=== PATIENT | female | born 1935 | race Caucasian/White ===

== ENCOUNTER → 2017-10-10 09:15 | Outpatient (CLI) | payer MEDICARE, OTHER, SELFPAY ==
[2017-10-10 10:59] LABS: Basophils % 0.2 % (0.1-2.0); Eosinophils # 0.1 K/mm3 (0.0-0.4); Eosinophils % 1.6 % (0.1-12.0); Hematocrit 44.4 % (37.0-47.0); Hemoglobin 14.2 g/dL (12.2-16.2); Lymphocytes # 2.2 K/mm3 (0.7-4.5); Mean Corpuscular HGB Conc 32.1 g/dL (31.8-35.4); Mean Corpuscular Hemoglobin 30.2 pg (27.0-31.2); Mean Platelet Volume 7.7 fl (7.4-10.4); Monocytes # 0.4 K/mm3 (0.1-1.0); Monocytes % 6.5 % (1.7-9.3); Neutrophils # 3.9 K/mm3 (1.8-7.8); Neutrophils % 58.7 % (37.0-80.0); Platelet Count 304 K/mm3 (142-424); Red Blood Count 4.72 M/mm3 (4.20-5.40); Red Cell Distribution Width 14.2 % (11.5-17.5); White Blood Count 6.6 K/mm3 (4.8-10.8)
[2017-10-10 14:02] LABS: Alanine Aminotransferase 25 U/L (12-78); Albumin Level 4.1 gm/dL (3.4-5.0); Albumin/Globulin Ratio 1.4 (1.1-1.8); Alkaline Phosphatase 86 U/L (46-116); Aspartate Amino Transferase 15 U/L (15-37); Bilirubin,Total 0.5 mg/dL (0.2-1.0); Blood Urea Nitrogen 16 mg/dL (7-18); Calcium 9.4 mg/dL (8.5-10.1); Carbon Dioxide 27 mmol/L (21.0-32.0); Chloride 103 mmol/L (98-107); Chol/HDL Ratio 2.1 (1-3.5); Cholesterol 192 mg/dL (140-200); Creatinine,Serum 0.86 mg/dL (0.55-1.02); Estimated Glomerular Filt Rate 63 ml/min (>60); GFR (African American) 77 ML/MIN (>60); Glucose 79 mg/dL (74-106); HDL Cholesterol 90 mg/dL (29-89); LDL Cholesterol 84 mg/dL (0-130); Sodium 141 mmol/L (136-145); Thyroid Stimulating Hormone 0.96 uIU/ml (0.358-3.740); Total Protein,Serum 7.1 gm/dL (6.4-8.2); Triglycerides 92 mg/dL (30-200); VLDL Cholesterol 18 mg/dL (0-40)
== END ==
PROVIDERS: PCP Internal Medicine Adolescent Medicine; Visit Provider Internal Medicine Adolescent Medicine
DX: I10 Essential (primary) hypertension (principal); E78.5 Hyperlipidemia, unspecified; E03.9 Hypothyroidism, unspecified; M15.9 Polyosteoarthritis, unspecified
CPT/HCPCS: 36415; 80053; 80061; 84443; 85025

== ENCOUNTER → 2018-04-05 10:28 | Outpatient (POV) | payer MEDICARE, OTHER, SELFPAY ==
[2018-04-05 10:45] VITALS: BP 164/88; PULSE 76; RESP 18; O2SAT 98
--- NOTE | 2018-04-05 13:02 | HMH.PMCON ---
Assessment and Plan (1) Back pain Current visit: Yes Status: Chronic Qualifiers: Back pain location: low back pain Chronicity: chronic Back pain laterality: midline Sciatica presence: with sciatica Category: Medical Code(s): M54.9 - Dorsalgia, unspecified - Assessment and plan all Dx Assessment and Plan for all problems:: We will schedule physical therapy along with an order for new lumbar MRI. When the patient returns we will review the MRI. I believe she may be a mild candidate. This note was dictated using voice recognition software and may contain errors or omissions HPI - Data of Consult Consult date: 04/05/18 Requesting Physician: Alycia Remy APRN Primary Care Provider: Himanshu Escobar MD Family Provider: Referral Provider, - Consult Narrative Reason for consult: Back pain History of present illness: Ms. Marroquin is a 82 year old female presents today for consultation in regard to her back and leg pain. Patient states that most of her back pain happens when she is walking or moving. Patient states that during shopping she finds herself bent over a cart. Patient states that resting heat and ice and elevation decrease her pain. Patient does have some burning down her left leg at times. Patient has had steroid injections in the past however she has had reactions to them every time. Patient was told by Dr. Bills that she would not be having anymore. Patient tried and failed chiropractic therapy along with massage therapy. Patient rates her pain a 7 out of 10. Patient would like to start with physical therapy. I do also believe we should get some new imaging her back. CC: Alycia Remy APRN [facility] History I have reviewed the patient's past medical history: Yes Medical History: Reports:: Hyperlipidemia, Hypertension Denies:: Diabetes Mellitus Type 1 Other Medical History: Reports: Thyroid Disease Other Surgeries: Yes: Appendectomy, Hysterectomy-Total, Thyroidectomy Amputation: No Fractures: No - *Social History Smoking Status: Never smoker Alcohol Intake: never Occupational Status: retired Housing: house - Psychiatric History Expresses thoughts of harming self/others: None Suicide Plan Description: No Plan *Family Hx:: Unable to obtain Review of Systems - Review of Systems ROS General: no recent weight change, no fever, no sleep disturbances Respiratory: no cough, no shortness of air, no recurring pulmonary infections Cardiovascular/Peripheral Vascular: No chest pain, No palpitations, no edema, no shortness of breath. Gastrointestinal: no incontinence, normal bowel movements reported Genitourinary: no incontinence Musculoskeletal: Back pain, leg pain Psychiatric: normal mood/ affect Neurological: [denies weakness in extremities], [denies balance issues] Meds Home Medications Medication Instructions Recorded Confirmed Type Losartan Potassium 50 mg PO DAILY 04/05/18 04/05/18 History Omeprazole [Omeprazole 20mg 20 mg PO DAILY 04/05/18 04/05/18 History Capsule] Simvastatin 80 mg PO DAILY 04/05/18 04/05/18 History methylPREDNISolone 4 mg PO DAILY 04/05/18 04/05/18 History [Methylprednisolone] Allergies Allergy/AdvReac Type Severity Reaction Status Date / Time cyclobenzaprine Allergy Verified 04/05/18 10:56 etodolac Allergy Verified 04/05/18 10:56 metronidazole Allergy Verified 04/05/18 10:56 tramadol Allergy Verified 04/05/18 10:56 niacin AdvReac Verified 04/05/18 10:56 TYLENOL 3 Allergy Uncoded 04/05/18 10:56 Objective Vital signs: Pulse Resp BP Pulse Ox 76 18 164/88 98 04/05/18 10:45 04/05/18 10:45 04/05/18 10:45 04/05/18 10:45 Narrative: Physical Exam General: Alert and oriented x3, no acute distress, pleasant and cooperative, [on room air] Lungs: Resps E/U, Symmetrical chest expansion, Eyes: PERRL Musculoskeletal: Flexion and extension of lumbar spine somewhat gua
--- NOTE | 2018-04-05 13:05 | P.CONS_ITS ---
Assessment and Plan (1) Back pain Current visit: Yes Status: Chronic Qualifiers: Back pain location: low back pain Chronicity: chronic Back pain laterality: midline Sciatica presence: with sciatica Category: Medical Code(s): M54.9 - Dorsalgia, unspecified - Assessment and plan all Dx Assessment and Plan for all problems:: We will schedule physical therapy along with an order for new lumbar MRI. When the patient returns we will review the MRI. I believe she may be a mild candidate. This note was dictated using voice recognition software and may contain errors or omissions HPI - Data of Consult Consult date: 04/05/18 Requesting Physician: Alycia Remy APRN Primary Care Provider: Himanshu Escobar MD Family Provider: Referral Provider, - Consult Narrative Reason for consult: Back pain History of present illness: Ms. Marroquin is a 82 year old female presents today for consultation in regard to her back and leg pain. Patient states that most of her back pain happens when she is walking or moving. Patient states that during shopping she finds herself bent over a cart. Patient states that resting heat and ice and elevation decrease her pain. Patient does have some burning down her left leg at times. Patient has had steroid injections in the past however she has had reactions to them every time. Patient was told by Dr. Bills that she would not be having anymore. Patient tried and failed chiropractic therapy along with massage therapy. Patient rates her pain a 7 out of 10. Patient would like to start with physical therapy. I do also believe we should get some new imaging her back. CC: Alycia Remy APRN [facility] History I have reviewed the patient's past medical history: Yes Medical History: Reports:: Hyperlipidemia, Hypertension Denies:: Diabetes Mellitus Type 1 Other Medical History: Reports: Thyroid Disease Other Surgeries: Yes: Appendectomy, Hysterectomy-Total, Thyroidectomy Amputation: No Fractures: No - *Social History Smoking Status: Never smoker Alcohol Intake: never Occupational Status: retired Housing: house - Psychiatric History Expresses thoughts of harming self/others: None Suicide Plan Description: No Plan *Family Hx:: Unable to obtain Review of Systems - Review of Systems ROS General: no recent weight change, no fever, no sleep disturbances Respiratory: no cough, no shortness of air, no recurring pulmonary infections Cardiovascular/Peripheral Vascular: No chest pain, No palpitations, no edema, no shortness of breath. Gastrointestinal: no incontinence, normal bowel movements reported Genitourinary: no incontinence Musculoskeletal: Back pain, leg pain Psychiatric: normal mood/ affect Neurological: [denies weakness in extremities], [denies balance issues] Meds Home Medications Medication Instructions Recorded Confirmed Type Losartan Potassium 50 mg PO DAILY 04/05/18 04/05/18 History Omeprazole [Omeprazole 20mg 20 mg PO DAILY 04/05/18 04/05/18 History Capsule] Simvastatin 80 mg PO DAILY 04/05/18 04/05/18 History methylPREDNISolone 4 mg PO DAILY 04/05/18 04/05/18 History [Methylprednisolone] Allergies Allergy/AdvReac Type Severity Reaction Status Date / Time cyclobenzaprine Allergy Verified 04/05/18 10:56 etodolac Allergy Verified 04/05/18 10:5
== END ==
PROVIDERS: PCP Internal Medicine Adolescent Medicine; Visit Provider Clinical Nurse Specialist Family Health
DX: M54.30 Sciatica, unspecified side (principal)
CPT/HCPCS: 99202

== ENCOUNTER → 2018-04-09 11:19 | Outpatient (CLI) | payer MEDICARE, OTHER, SELFPAY ==
--- NOTE | 2018-04-09 11:22 | MR_ITS ---
MR lumbar spine wo con, MR 3-d myelogram/MRCP HISTORY: PT states low back pain and left leg pain ITS.REASON: BACK PAIN ORDERING PHYSICIAN: Alycia Remy PATIENT AGE: 82 years Comparison: MRI 09/09/13 TECHNIQUE: Standard multiplanar multiecho sequences are performed without contrast. 3-D MIP and myelographic images are also rendered and reviewed FINDINGS: There is multilevel degenerative disc disease/lumbar spondylosis with lumbar scoliosis convex right. Spinal cord ends at the L1-L2 level. T12-L1: Unremarkable. L1-L2: Degenerative disc disease with mild left-sided bulging discs/disc osteophyte complex with moderate left-sided foraminal narrowing. Lateral osteophyte formation noted at this level. L2-L3: Mild degenerative disc disease. L3-L4: Degenerative disc disease with mild anterolisthesis of L3 of 3 mm with a broad-based bulging disc. There is 7 mm right lateral translation of L3 on L4. Facet ligamentum flavum hypertrophy noted with moderate bilateral lateral recess narrowing and mild bilateral foraminal narrowing. There is borderline canal stenosis at this level. L4-5: Degenerative disc disease with bulging disc with bilateral lateral recess and foraminal narrowing. L5-S1: Mild degenerative disc disease with mild bilateral foraminal narrowing. IMPRESSION: Multilevel lumbar spondylosis with degenerative disc disease, scoliosis, and bulging disc along with facet and ligamentum flavum hypertrophy with lateral recess and foraminal narrowing. There is borderline canal stenosis at L3-L4. No extruded herniated disc. Degenerative changes are somewhat worse than when compared to 09/09/2013. Please see above for detailed description at each level
== END ==
PROVIDERS: PCP Internal Medicine Adolescent Medicine; Visit Provider Clinical Nurse Specialist Family Health
DX: M54.5 Low back pain (principal)
CPT/HCPCS: 72148; 76376

== ENCOUNTER → 2018-04-19 12:41 | Outpatient (POV) | payer MEDICARE, OTHER, SELFPAY ==
--- NOTE | 2018-04-19 13:14 | HMH.PAINSOAP ---
[facility] Pain Management SOAP Note Subjective:: Patient is a pleasant 82-year-old white female who presents today to for follow-up after her recent MRI. Patient is continuing with her physical therapy and states that it has been helping. Patient's MRI does show degenerative disc disease along with some bulging disc. Patient also has a little bit of spinal stenosis. Patient rates her pain today at a 5 out of 10. Patient will be going to physical therapy today. Patient also discussed dry needling with me. Most of her pain is in her low back. ROS General: no recent weight change, no fever, no sleep disturbances Respiratory: no cough, no shortness of air, no recurring pulmonary infections Cardiovascular/Peripheral Vascular: No chest pain, No palpitations, no edema, no shortness of breath. Gastrointestinal: no incontinence, normal bowel movements reported Genitourinary: no incontinence Musculoskeletal: Back pain Psychiatric: normal mood/ affect Neurological: [denies weakness in extremities], [denies balance issues] Objective:: Physical Exam General: Alert and oriented x3, no acute distress, pleasant and cooperative, on room air Lungs: Resps E/U, Symmetrical chest expansion, Eyes: PERRL Musculoskeletal: Flexion and extension of lumbar spine somewhat guarded secondary to pain, deep tendon reflexes normal, strength in upper and lower extremities [5/5], antalgic gait noted Neurological: speech clear, advertising account executive equal, no gross sensory deficits Assessment:: Degenerative disc disease of the lumbar spine with lumbar radiculopathy Plan:: We will allow the patient to finish with her physical therapy and follow-up with her after this. Patient and I discussed that if she would like to pursue dry needling I would be happy to write a prescription for this. Patient and I also discussed that there may be some small procedures that we can do to help with her in functionality long-term. Patient has been instructed to call the office if she has any issues prior to her next appointment. This note was dictated using voice recognition software and may contain errors or omissions
[2018-04-19 15:30] VITALS: BP 138/77; PULSE 82; RESP 18; O2SAT 98; BMI 27.4
== END ==
PROVIDERS: PCP Internal Medicine Adolescent Medicine; Visit Provider Clinical Nurse Specialist Family Health
DX: M51.16 Intervertebral disc disorders with radiculopathy, lumbar region (principal)
CPT/HCPCS: 99213

== ENCOUNTER → 2018-05-06 08:18 | Outpatient (CLI) | payer MEDICARE, OTHER, SELFPAY ==
[2018-05-06 09:25] LABS: Basophils % 0.4 % (0.1-2.0); Eosinophils # 0.1 K/mm3 (0.0-0.4); Eosinophils % 1.9 % (0.1-12.0); Hematocrit 42.2 % (37.0-47.0); Hemoglobin 13.3 g/dL (12.2-16.2); Lymphocytes # 1.5 K/mm3 (0.7-4.5); Lymphocytes % 31.3 K/mm3 (10-50); Mean Corpuscular HGB Conc 31.6 g/dL (31.8-35.4); Mean Corpuscular Hemoglobin 29.2 pg (27.0-31.2); Mean Corpuscular Volume 92.4 fl (81-99); Mean Platelet Volume 7.4 fl (7.4-10.4); Monocytes # 0.4 K/mm3 (0.1-1.0); Monocytes % 7.9 % (1.7-9.3); Neutrophils # 2.8 K/mm3 (1.8-7.8); Neutrophils % 58.5 % (37.0-80.0); Platelet Count 312 K/mm3 (142-424); Red Blood Count 4.56 M/mm3 (4.20-5.40); Red Cell Distribution Width 13.8 % (11.5-17.5); White Blood Count 4.8 K/mm3 (4.8-10.8)
[2018-05-06 09:38] LABS: Alanine Aminotransferase 20 U/L (12-78); Albumin Level 3.7 gm/dL (3.4-5.0); Albumin/Globulin Ratio 1.2 (1.1-1.8); Alkaline Phosphatase 98 U/L (46-116); Anion Gap 12.1 mEq/L (5-15); Aspartate Amino Transferase 17 U/L (15-37); Bilirubin,Total 0.5 mg/dL (0.2-1.0); Blood Urea Nitrogen 15 mg/dL (7-18); Calcium 9.5 mg/dL (8.5-10.1); Carbon Dioxide 29 mmol/L (21.0-32.0); Chloride 103 mmol/L (98-107); Chol/HDL Ratio 2.3 (1-3.5); Cholesterol 177 mg/dL (140-200); Estimated Glomerular Filt Rate 69 ml/min (>60); Free Thyroxine Index 5.3 ug/dL (5.93-13.13); GFR (African American) 83 ML/MIN (>60); Globulin 3.2 gm/dl (1.3-3.2); Glucose 89 mg/dL (74-106); HDL Cholesterol 76 mg/dL (29-89); LDL Cholesterol 79 mg/dL (0-130); Potassium 5.1 mmoL/L (3.5-5.1); Sodium 139 mmol/L (136-145); T4 (Thyroxine) 14.7 ug/dl (4.7-13.3); Thyroid Stimulating Hormone 0.06 uIU/ml (0.358-3.740); Total Protein,Serum 6.9 gm/dL (6.4-8.2); Triglycerides 108 mg/dL (30-200); Triiodothryronine (T3) Uptake 36 % (31-39); VLDL Cholesterol 22 mg/dL (0-40)
== END ==
PROVIDERS: PCP Internal Medicine Adolescent Medicine; Visit Provider Internal Medicine Adolescent Medicine
DX: E03.9 Hypothyroidism, unspecified (principal); E78.5 Hyperlipidemia, unspecified; M15.0 Primary generalized (osteo)arthritis
CPT/HCPCS: 36415; 80053; 80061; 84436; 84443; 84479; 85025

== ENCOUNTER 2018-05-06 09:30 | Outpatient (RCR) | payer MEDICARE, OTHER, SELFPAY ==
--- NOTE | 2018-04-09 14:10 | HMH.PTOPEV ---
PT Outpatient Evaluation Rehab PT Outpatient Evaluation Start: 04/09/18 13:40 Freq: Status: Active Protocol: Document 04/09/18 13:44 PHORTRINO (Rec: 04/09/18 14:09 PHORNE [id number]) Electronically Signed By Obi Santillan, PT 04/09/18 13:44 Outpatient Therapy Subjective History Subjective History Pt is 82 yowf who presents c/o LBP x ~ 1 yr with insidious onset of symptoms and left LE pain to the mid-thigh distally . She reports no pain with sitting, but increased pain with prolonged standing and walking. She also reports she has been treated for left knee OA and left hip trochanteric bursitis over the past yr as well. She has received steroid injection in her knee and hip and had bad reactions with all of them. Chief Complaint Pain Symptom Type Sharp Burning Symptoms Relieved By Rest/Positioning Heat Ice Symptoms Aggravated By Standing Walking Prior Functional Limitations None Current Functional Limitations Standing Walking Symptom Description Intermittent Activity Dependent Level of pain today (0-10) 0 Pain scale - at its best (0-10) 8 Lumbopelvic Eval Palapation tenderness bilateral lumbar spinal tenderness Yes paraspinal tenderness Yes buttock tenderness Yes Lumbar/Sacral Palpation Findings Tenderness Muscle Guarding Lumbar/Sacral Palpation Overall Comment steve SI and quad lumborum Accessory Movement L-spine Vertebrae Accessory Movements Central P/A Lee that Elicit Symptoms L2 bilateral L3 bilateral L4 bilateral L5 bilateral S1 bilateral Range of Motion Lumbar Spine Active Flexion Range of 0-65 Motion (degrees) Lumbar Spine Active Extension Range of 0-15 Motion (degrees) Left Lumbar Spine Lateral Flexion Active 0-15 Range of Motion (degrees) Right Lumbar Spine Lateral Flexion 0-15 Active Range of Motion (degrees) Manual Muscle Test Bilateral Knee Extension Strength Grade 5 Normal Knee Flexion Strength Grade 5 Nor
== END 2018-05-06 09:31 | disposition home or self-care (01) ==
LOC: PT 09:30
PROVIDERS: PCP Internal Medicine Adolescent Medicine; Visit Provider Clinical Nurse Specialist Family Health
DX: M54.5 Low back pain (principal)
CPT/HCPCS: 97010; 97014; 97110; 97140; 97163; G0283

== ENCOUNTER → 2018-05-17 15:09 | Outpatient (POV) | payer MEDICARE, OTHER, SELFPAY ==
[2018-05-17 15:46] VITALS: BP 157/87; PULSE 87; RESP 18; O2SAT 98; BMI 27.4
--- NOTE | 2018-05-17 16:09 | HMH.PAINSOAP ---
[facility] Pain Management SOAP Note Subjective:: Patient is a pleasant 83-year-old white female who presents today for follow-up. Patient has completed her physical therapy. Patient states that her pain is still an 8 out of 10. Patient states most of the pain is when she standing and walking. Patient states she has to lean over countertops and shopping cart for relief. Patient and I discussed spinal stenosis and a mild procedure. Patient rates her pain an 8 out of 10 today. Patient is interested in this procedure. Patient is not on any anticoagulation therapy. Patient is continuing her home stretching exercises. ROS General: no recent weight change, no fever, no sleep disturbances Respiratory: no cough, no shortness of air, no recurring pulmonary infections Cardiovascular/Peripheral Vascular: No chest pain, No palpitations, no edema, no shortness of breath. Gastrointestinal: no incontinence, normal bowel movements reported Genitourinary: no incontinence Musculoskeletal: Back pain Psychiatric: normal mood/ affect Neurological: [denies weakness in extremities], [denies balance issues] Objective:: Physical Exam General: Alert and oriented x3, no acute distress, pleasant and cooperative, [on room air] Lungs: Resps E/U, Symmetrical chest expansion, Eyes: PERRL Musculoskeletal: Flexion and extension of lumbar spine somewhat guarded secondary to pain, deep tendon reflexes normal, strength in upper and lower extremities [5/5], [abnormal gait noted] Neurological: speech clear, wet mix operator equal, no gross sensory deficits Assessment:: 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 If she is we will schedule her for a mild procedure. This note was dictated using voice recognition software and may contain errors or omissions
== END ==
PROVIDERS: PCP Internal Medicine Adolescent Medicine; Visit Provider Clinical Nurse Specialist Family Health
DX: M51.36 Other intervertebral disc degeneration, lumbar region (principal); M48.062 Spinal stenosis, lumbar region with neurogenic claudication
CPT/HCPCS: 99213

== ENCOUNTER → 2018-06-11 11:17 | Outpatient (POV) | payer MEDICARE, OTHER, SELFPAY ==
[2018-06-11 11:25] VITALS: BP 137/61; PULSE 83; RESP 18; O2SAT 98; BMI 27.4
--- NOTE | 2018-06-11 11:48 | HMH.PAINSOAP ---
[facility] Pain Management SOAP Note Subjective:: This patient is a pleasant 83-year-old white female who we are treating for degenerative disc disease of lumbar spine with spinal stenosis and neurogenic claudication. She has increasing pain with walking. Bending forward does make it better. MRI does show significant spinal stenosis at L3-L4 with ligamentum flavum hypertrophy noted at that level. She has had a series of epidurals which is not giving her much benefit. I believe she would benefit from minimally invasive lumbar decompression at this level L3-L4 bilaterally. I have explained the risk and benefits and answered all questions. Objective:: Alert and oriented x3 no acute distress. Tenderness over the lumbar spine. Motor strength of the lower extremities is 5/5. There is no gross sensory deficit. Assessment:: Degenerative disc disease of lumbar spine with significant lumbar spinal stenosis neurogenic claudication at L3-L4 Plan:: We will plan on minimally invasive lumbar decompression at L3-L4 bilaterally. Depending on epidural dye spread we may do any other indicated levels if needed.
== END ==
PROVIDERS: PCP Internal Medicine Adolescent Medicine; Visit Provider Anesthesiology
DX: M51.36 Other intervertebral disc degeneration, lumbar region (principal); M48.062 Spinal stenosis, lumbar region with neurogenic claudication
CPT/HCPCS: 99212

== ENCOUNTER → 2018-07-05 15:06 | Outpatient (POV) | payer MEDICARE, OTHER, SELFPAY ==
[2018-07-05 15:32] VITALS: BP 156/87; PULSE 91; RESP 18; O2SAT 99; BMI 27.4
--- NOTE | 2018-07-05 15:36 | HMH.PAINSOAP ---
[facility] Pain Management SOAP Note Subjective:: Is a pleasant 83-year-old white female who presents today after mild procedure. Patient is still having some preprocedural pain. She rates her pain a 7 out of 10. She is a little frustrated at this time. Patient and I had a long discussion in regards to options for her treatment in the future. Patient and I discussed about epidural injections along with potential intrathecal therapies. ROS General: no recent weight change, no fever, no sleep disturbances Respiratory: no cough, no shortness of air, no recurring pulmonary infections Cardiovascular/Peripheral Vascular: No chest pain, No palpitations, no edema, no shortness of breath. Gastrointestinal: no incontinence, normal bowel movements reported Genitourinary: no incontinence Musculoskeletal: Back pain, leg pain Psychiatric: normal mood/ affect Neurological: [denies weakness in extremities], [denies balance issues] Objective:: Physical Exam General: Alert and oriented x3, no acute distress, pleasant and cooperative, [on room air] Lungs: Resps E/U, Symmetrical chest expansion, Eyes: PERRL Musculoskeletal: Flexion and extension of lumbar spine somewhat guarded secondary to pain, deep tendon reflexes normal, strength in upper and lower extremities [5/5], [abnormal gait noted] Neurological: speech clear, quality assurance qa lab technician equal, no gross sensory deficits Assessment:: Degenerative disc disease lumbar spine with lumbar spinal stenosis and neurogenic claudication at L3-L4 Plan:: We will schedule an L3-L4 epidural steroid injection for the patient in several weeks. We will also give her a Medrol Dosepak today to see if this helps her with her pain level. Patient and I also did discuss intrathecal therapy I do believe she would be a good candidate for this. This note was dictated using voice recognition software and may contain errors or omissions
== END ==
PROVIDERS: PCP Internal Medicine Adolescent Medicine; Visit Provider Clinical Nurse Specialist Family Health
DX: M51.36 Other intervertebral disc degeneration, lumbar region (principal); M48.062 Spinal stenosis, lumbar region with neurogenic claudication
CPT/HCPCS: 99213

== ENCOUNTER → 2018-07-07 11:11 | Outpatient (CLI) | payer MEDICARE, OTHER, SELFPAY ==
[2018-07-07 11:44] LABS: Basophils % 0.1 % (0.1-2.0); Eosinophils % 0.2 % (0.1-12.0); Hematocrit 42.3 % (37.0-47.0); Hemoglobin 13.3 g/dL (12.2-16.2); Lymphocytes # 1.4 K/mm3 (0.7-4.5); Mean Corpuscular HGB Conc 31.4 g/dL (31.8-35.4); Mean Corpuscular Volume 92.3 fl (81-99); Monocytes # 0.4 K/mm3 (0.1-1.0); Monocytes % 4.5 % (1.7-9.3); Neutrophils # 7.7 K/mm3 (1.8-7.8); Neutrophils % 80.2 % (37.0-80.0); Platelet Count 373 K/mm3 (142-424); Red Blood Count 4.58 M/mm3 (4.20-5.40); Red Cell Distribution Width 14.7 % (11.5-17.5); White Blood Count 9.5 K/mm3 (4.8-10.8)
[2018-07-07 14:20] LABS: Alanine Aminotransferase 25 U/L (12-78); Albumin Level 4.2 gm/dL (3.4-5.0); Albumin/Globulin Ratio 1.3 (1.1-1.8); Alkaline Phosphatase 88 U/L (46-116); Anion Gap 14.5 mEq/L (5-15); Aspartate Amino Transferase 14 U/L (15-37); Bilirubin,Total 0.3 mg/dL (0.2-1.0); Blood Urea Nitrogen 17 mg/dL (7-18); Calcium 9.5 mg/dL (8.5-10.1); Carbon Dioxide 27 mmol/L (21.0-32.0); Chloride 101 mmol/L (98-107); Creatinine,Serum 0.81 mg/dL (0.55-1.02); Estimated Glomerular Filt Rate 68 ml/min (>60); GFR (African American) 82 ML/MIN (>60); Globulin 3.3 gm/dl (1.3-3.2); Glucose 93 mg/dL (74-106); Potassium 4.5 mmoL/L (3.5-5.1); Sodium 138 mmol/L (136-145); Total Protein,Serum 7.5 gm/dL (6.4-8.2)
== END ==
PROVIDERS: Visit Provider Nurse Practitioner Family
DX: R19.5 Other fecal abnormalities (principal); R10.13 Epigastric pain
CPT/HCPCS: 36415; 80053; 85025

== ENCOUNTER → 2018-07-08 07:24 | Outpatient (CLI) | payer MEDICARE, OTHER, SELFPAY ==
[2018-07-08 08:21] LABS: Occult Blood,Stool Negative (Negative)
== END ==
PROVIDERS: Visit Provider Nurse Practitioner Family
DX: R19.5 Other fecal abnormalities (principal)
CPT/HCPCS: 82272; G0328

== ENCOUNTER → 2018-07-09 14:51 | Outpatient (CLI) | payer MEDICARE, OTHER, SELFPAY ==
[2018-07-09 16:18] LABS: Occult Blood,Stool Negative (Negative)
== END ==
PROVIDERS: Visit Provider Nurse Practitioner Family
DX: R19.5 Other fecal abnormalities (principal)
CPT/HCPCS: 82272; G0328

== ENCOUNTER → 2018-07-10 10:37 | Outpatient (CLI) | payer MEDICARE, OTHER, SELFPAY ==
[2018-07-10 14:23] LABS: Occult Blood,Stool Negative (Negative)
== END ==
PROVIDERS: Visit Provider Nurse Practitioner Family
DX: R19.5 Other fecal abnormalities (principal)
CPT/HCPCS: 82272; G0328

== ENCOUNTER → 2018-08-17 11:11 | Outpatient (POV) | payer MEDICARE, OTHER, SELFPAY ==
[2018-08-17 11:29] VITALS: BP 149/74; PULSE 78; RESP 18; O2SAT 98; BMI 27.4
--- NOTE | 2018-08-17 11:35 | HMH.PAINSOAP ---
[facility] Pain Management SOAP Note Subjective:: Patient is an 83-year-old white female who presents today for follow-up after left bursa injection. Patient states her hip is doing better however she still having quite a bit of pain post mild procedure. Patient states that the pain is constant she states it is no better than when she started. Patient was scheduled for an epidural but she states she did not receive that she received a bursa injection instead due to the current symptomology. Patient states that stretching helps her back. Patient does have a negative Fabere sign. Patient states that she still has to lean forward for relief of her pain. She rates her pain a 9 out of 10 when she is up standing moving walking. ROS General: no recent weight change, no fever, no sleep disturbances Respiratory: no cough, no shortness of air, no recurring pulmonary infections Cardiovascular/Peripheral Vascular: No chest pain, No palpitations, no edema, no shortness of breath. Gastrointestinal: no incontinence, normal bowel movements reported Genitourinary: no incontinence Musculoskeletal: Back pain Psychiatric: normal mood/ affect Neurological: [denies weakness in extremities], [denies balance issues] Objective:: Physical Exam General: Alert and oriented x3, no acute distress, pleasant and cooperative, [on room air] Lungs: Resps E/U, Symmetrical chest expansion, Eyes: PERRL Musculoskeletal: Flexion and extension of lumbar spine somewhat guarded secondary to pain, deep tendon reflexes normal, strength in upper and lower extremities [5/5], [abnormal gait noted] Neurological: speech clear, shared services and outsourcing manager equal, no gross sensory deficits Assessment:: Degenerative disc disease lumbar spine with lumbar radiculopathy along with spinal stenosis and neurogenic claudication Plan:: We will schedule her for an L4-L5 lumbar epidural steroid injection. Patient and I briefly discussed a vertical flex. I do believe injection should be done prior to this. But she may benefit from it in the future. Not on any anticoagulation therapy. Dr. Kidd has reviewed this note and agrees with this plan of care. This note was dictated using voice recognition software and may contain errors or omissions
== END ==
PROVIDERS: PCP Internal Medicine Adolescent Medicine; Visit Provider Clinical Nurse Specialist Family Health
DX: M48.062 Spinal stenosis, lumbar region with neurogenic claudication (principal); M51.16 Intervertebral disc disorders with radiculopathy, lumbar region
CPT/HCPCS: 99213

== ENCOUNTER → 2018-08-31 10:58 | Outpatient (POV) | payer MEDICARE, OTHER, SELFPAY ==
[2018-08-31 11:08] VITALS: BP 151/74; PULSE 71; RESP 18; O2SAT 98; BMI 27.4
--- NOTE | 2018-08-31 11:17 | HMH.PAINSOAP ---
[facility] Pain Management SOAP Note Subjective:: Patient is a pleasant 83-year-old white female who presents today for follow-up after lumbar epidural steroid injection. Patient states she is doing better she rates her pain a 2 out of 10. Patient states she has good and bad days. Patient would like to repeat the injection to see if she can get more relief. Most of her pain is in her back and down her legs at times. Patient is status post a mild procedure she states that this point she can now walk from her chair to the restroom without issue. ROS General: no recent weight change, no fever, no sleep disturbances Respiratory: no cough, no shortness of air, no recurring pulmonary infections Cardiovascular/Peripheral Vascular: No chest pain, No palpitations, no edema, no shortness of breath. Gastrointestinal: no incontinence, normal bowel movements reported Genitourinary: no incontinence Musculoskeletal: Back pain leg pain Psychiatric: normal mood/ affect Neurological: [denies weakness in extremities], [denies balance issues] Objective:: Physical Exam General: Alert and oriented x3, no acute distress, pleasant and cooperative, [on room air] Lungs: Resps E/U, Symmetrical chest expansion, Eyes: PERRL Musculoskeletal: Flexion and extension of lumbar spine somewhat guarded secondary to pain, deep tendon reflexes normal, strength in upper and lower extremities [5/5], [abnormal gait noted] Neurological: speech clear, boom stick man equal, no gross sensory deficits Assessment:: Degenerative disc disease lumbar spine with lumbar radiculopathy and spinal stenosis with neurogenic claudication Plan:: Given the efficacy of the last injection we will schedule a repeat L4-L5 lumbar epidural steroid injection. Patient is continuing on anti-inflammatories. She is continuing home stretching and is not on any anticoagulation therapy. Dr. Kidd has reviewed this note and agrees with this plan of care. This note was dictated using voice recognition software and may contain errors or omissions
== END ==
PROVIDERS: PCP Internal Medicine Adolescent Medicine; Visit Provider Clinical Nurse Specialist Family Health
DX: M51.36 Other intervertebral disc degeneration, lumbar region (principal); M48.062 Spinal stenosis, lumbar region with neurogenic claudication
CPT/HCPCS: 99213

== ENCOUNTER → 2018-10-04 14:03 | Outpatient (POV) | payer MEDICARE, OTHER, SELFPAY ==
[2018-10-04 14:21] VITALS: BP 144/74; PULSE 85; RESP 18; O2SAT 98; BMI 27.4
--- NOTE | 2018-10-05 08:53 | HMH.PAINSOAP ---
[facility] Pain Management SOAP Note Subjective:: Patient is a pleasant 83-year-old white female who presents today for follow-up. Patient is a little disheartened. Patient states that she thought she would be doing much better she rates her pain at 25% less than originally. She has had a epidural injection and a mild procedure. Patient has been quite against any intrathecal or neuro modulation therapies however I do believe she would benefit from them. We did briefly discuss this. Patient would like to try another round of injections prior. Patient states most of her pain is in her low back. Patient has not had any facet joint injections. Patient is not on any blood thinners. Patient is continuing a home stretching program and is on anti-inflammatories. ROS General: no recent weight change, no fever, no sleep disturbances Respiratory: no cough, no shortness of air, no recurring pulmonary infections Cardiovascular/Peripheral Vascular: No chest pain, No palpitations, no edema, no shortness of breath. Gastrointestinal: no incontinence, normal bowel movements reported Genitourinary: no incontinence Musculoskeletal: Back pain Psychiatric: normal mood/ affect Neurological: [denies weakness in extremities], [denies balance issues] Objective:: Physical Exam General: Alert and oriented x3, no acute distress, pleasant and cooperative, [on room air] Lungs: Resps E/U, Symmetrical chest expansion, [CTA bilateral] Eyes: PERRL Musculoskeletal: Flexion and extension of lumbar spine somewhat guarded secondary to pain, deep tendon reflexes normal, strength in upper and lower extremities [5/5], [abnormal gait noted] Neurological: speech clear, hog confinement system manager equal, no gross sensory deficits Assessment:: DDD lumbar spine, facet arthropathy, spinal stenosis Plan:: we will schedule a medial branch block at L4 L5 and L5 S1 bilaterally to see if this is beneficial. If it is not I believe the patient would benefit from an intrathecal pain pump.I will follow up with the patient after her injection. Dr. Kidd has reviewed this note and agrees with this plan of care. This note was dictated using voice recognition software and may contain errors or omissions
--- NOTE | 2018-10-05 08:56 | P.CONS_ITS ---
[facility] Pain Management SOAP Note Subjective:: Patient is a pleasant 83-year-old white female who presents today for follow-up. Patient is a little disheartened. Patient states that she thought she would be doing much better she rates her pain at 25% less than originally. She has had a epidural injection and a mild procedure. Patient has been quite against any intrathecal or neuro modulation therapies however I do believe she would benefit from them. We did briefly discuss this. Patient would like to try another round of injections prior. Patient states most of her pain is in her low back. Patient has not had any facet joint injections. Patient is not on any blood thinners. Patient is continuing a home stretching program and is on anti- inflammatories. ROS General: no recent weight change, no fever, no sleep disturbances Respiratory: no cough, no shortness of air, no recurring pulmonary infections Cardiovascular/Peripheral Vascular: No chest pain, No palpitations, no edema, no shortness of breath. Gastrointestinal: no incontinence, normal bowel movements reported Genitourinary: no incontinence Musculoskeletal: Back pain Psychiatric: normal mood/ affect Neurological: [denies weakness in extremities], [denies balance issues] Objective:: Physical Exam General: Alert and oriented x3, no acute distress, pleasant and cooperative, [on room air] Lungs: Resps E/U, Symmetrical chest expansion, [CTA bilateral] Eyes: PERRL Musculoskeletal: Flexion and extension of lumbar spine somewhat guarded secondary to pain, deep tendon reflexes normal, strength in upper and lower extremities [5/5], [abnormal gait noted] Neurological: speech clear, target worker equal, no gross sensory deficits Assessment:: DDD lumbar spine, facet arthropathy, spinal stenosis Plan:: we will schedule a medial branch block at L4 L5 and L5 S1 bilaterally to see if this is beneficial. If it is not I believe the patient would benefit from an intrathecal pain pump.I will follow up with the patient after her injection. Dr. Kidd has reviewed this note and agrees with this plan of care. This note was dictated using voice recognition software and may contain errors or omissions
== END ==
PROVIDERS: PCP Internal Medicine Adolescent Medicine; Visit Provider Clinical Nurse Specialist Family Health
DX: M51.36 Other intervertebral disc degeneration, lumbar region (principal); M54.06 Panniculitis affecting regions of neck and back, lumbar region; M48.00 Spinal stenosis, site unspecified
CPT/HCPCS: 99213

== ENCOUNTER → 2018-11-08 08:55 | Outpatient (POV) | payer MEDICARE, OTHER, SELFPAY ==
[2018-11-08 09:15] VITALS: BP 156/81; PULSE 76; RESP 18; O2SAT 98; BMI 32.9
--- NOTE | 2018-11-08 09:33 | HMH.PAINSOAP ---
[facility] Pain Management SOAP Note Subjective:: Patient is a pleasant 83-year-old white female who presents today for follow-up after lumbar medial branch block. Patient had 80% relief for over 2 weeks after her injections. Patient states she is much more functional. She would like to proceed with an RFA. She is currently not on any anticoagulation therapy. She is continuing her home stretching program. She is on anti-inflammatories. She rates her pain today at 3 out of 10 ROS General: no recent weight change, no fever, no sleep disturbances Respiratory: no cough, no shortness of air, no recurring pulmonary infections Cardiovascular/Peripheral Vascular: No chest pain, No palpitations, no edema, no shortness of breath. Gastrointestinal: no incontinence, normal bowel movements reported Genitourinary: no incontinence Musculoskeletal: Back pain Psychiatric: normal mood/ affect Neurological: [denies weakness in extremities], [denies balance issues] Objective:: Physical Exam General: Alert and oriented x3, no acute distress, pleasant and cooperative, [on room air] Lungs: Resps E/U, Symmetrical chest expansion, Eyes: PERRL Musculoskeletal: Flexion and extension of lumbar spine somewhat guarded secondary to pain, deep tendon reflexes normal, strength in upper and lower extremities [5/5], [abnormal gait noted] patient has positive Kemps test bilateral lumbar spine Neurological: speech clear, beef grinder equal, no gross sensory deficits Assessment:: 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 Dr. Kidd has reviewed this note and agrees with this plan of care. This note was dictated using voice recognition software and may contain errors or omissions
--- NOTE | 2018-11-08 09:36 | P.CONS_ITS ---
[facility] Pain Management SOAP Note Subjective:: Patient is a pleasant 83-year-old white female who presents today for follow-up after lumbar medial branch block. Patient had 80% relief for over 2 weeks after her injections. Patient states she is much more functional. She would like to proceed with an RFA. She is currently not on any anticoagulation therapy. She is continuing her home stretching program. She is on anti-inflammatories. She rates her pain today at 3 out of 10 ROS General: no recent weight change, no fever, no sleep disturbances Respiratory: no cough, no shortness of air, no recurring pulmonary infections Cardiovascular/Peripheral Vascular: No chest pain, No palpitations, no edema, no shortness of breath. Gastrointestinal: no incontinence, normal bowel movements reported Genitourinary: no incontinence Musculoskeletal: Back pain Psychiatric: normal mood/ affect Neurological: [denies weakness in extremities], [denies balance issues] Objective:: Physical Exam General: Alert and oriented x3, no acute distress, pleasant and cooperative, [on room air] Lungs: Resps E/U, Symmetrical chest expansion, Eyes: PERRL Musculoskeletal: Flexion and extension of lumbar spine somewhat guarded secondary to pain, deep tendon reflexes normal, strength in upper and lower extremities [5/5], [abnormal gait noted] patient has positive Kemps test bilateral lumbar spine Neurological: speech clear, clinical coder equal, no gross sensory deficits Assessment:: 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 Dr. Kidd has reviewed this note and agrees with this plan of care. This note was dictated using voice recognition software and may contain errors or omissions
== END ==
PROVIDERS: PCP Internal Medicine Adolescent Medicine; Visit Provider Clinical Nurse Specialist Family Health
DX: M51.36 Other intervertebral disc degeneration, lumbar region (principal); M47.896 Other spondylosis, lumbar region; M54.06 Panniculitis affecting regions of neck and back, lumbar region
CPT/HCPCS: 99212

== ENCOUNTER → 2018-11-15 07:27 | Outpatient (CLI) | payer MEDICARE, OTHER, SELFPAY ==
[2018-11-15 07:59] LABS: Basophils % 0.4 % (0.1-2.0); Eosinophils # 0.2 K/mm3 (0.0-0.4); Eosinophils % 3.3 % (0.1-12.0); Hematocrit 38.9 % (37.0-47.0); Hemoglobin 12.8 g/dL (12.2-16.2); Mean Corpuscular Hemoglobin 30.9 pg (27.0-31.2); Mean Corpuscular Volume 93.5 fl (81-99); Mean Platelet Volume 6.9 fl (7.4-10.4); Monocytes # 0.4 K/mm3 (0.1-1.0); Monocytes % 6.4 % (1.7-9.3); Neutrophils # 3.7 K/mm3 (1.8-7.8); Neutrophils % 58.9 % (37.0-80.0); Platelet Count 387 K/mm3 (142-424); Red Blood Count 4.16 M/mm3 (4.20-5.40); Red Cell Distribution Width 14.5 % (11.5-17.5); White Blood Count 6.3 K/mm3 (4.8-10.8)
[2018-11-15 11:43] LABS: Alanine Aminotransferase 29 U/L (12-78); Albumin Level 4.1 gm/dL (3.4-5.0); Albumin/Globulin Ratio 1.2 (1.1-1.8); Alkaline Phosphatase 86 U/L (46-116); Anion Gap 16.7 mEq/L (5-15); Aspartate Amino Transferase 18 U/L (15-37); Bilirubin,Total 0.3 mg/dL (0.2-1.0); Blood Urea Nitrogen 15 mg/dL (7-18); Calcium 9.5 mg/dL (8.5-10.1); Carbon Dioxide 25 mmol/L (21.0-32.0); Chloride 102 mmol/L (98-107); Chol/HDL Ratio 2.1 (1-3.5); Cholesterol 194 mg/dL (140-200); Creatinine,Serum 0.99 mg/dL (0.55-1.02); Estimated Glomerular Filt Rate 54 ml/min (>60); Free Thyroxine Index 4.5 ug/dL (5.93-13.13); GFR (African American) 65 ML/MIN (>60); Globulin 3.3 gm/dl (1.3-3.2); Glucose 81 mg/dL (74-106); HDL Cholesterol 92 mg/dL (29-89); LDL Cholesterol 87 mg/dL (0-130); Potassium 4.7 mmoL/L (3.5-5.1); Sodium 139 mmol/L (136-145); T4 (Thyroxine) 13.2 ug/dl (4.7-13.3); Thyroid Stimulating Hormone 0.82 uIU/ml (0.358-3.740); Total Protein,Serum 7.4 gm/dL (6.4-8.2); Triglycerides 75 mg/dL (30-200); Triiodothryronine (T3) Uptake 34 % (31-39); VLDL Cholesterol 15 mg/dL (0-40)
[2018-11-16 07:07] LABS: Vitamin D 25 Hydroxy 93.8 ng/mL (30.0-100.0)
== END ==
PROVIDERS: Visit Provider Internal Medicine Adolescent Medicine
DX: E78.5 Hyperlipidemia, unspecified (principal); E03.9 Hypothyroidism, unspecified; M15.9 Polyosteoarthritis, unspecified
CPT/HCPCS: 36415; 80053; 80061; 82652; 84436; 84443; 84479; 85025

== ENCOUNTER → 2019-01-03 10:02 | Outpatient (POV) | payer MEDICARE, OTHER, SELFPAY ==
[2019-01-03 10:46] VITALS: BP 184/82; PULSE 78; RESP 18; O2SAT 99; BMI 27.4
--- NOTE | 2019-01-03 11:20 | P.CONS_ITS ---
[facility] Pain Management SOAP Note Subjective:: Patient is a 83-year-old white female who we have been treating for low back pain and leg pain. Patient has had multiple injections along with lumbar RFA. She rates her pain an 8 out of 10 she states is terrible. Patient had a mild in the past. Patient states that the injections are so painful they need to knock me out . I discussed with her the risks of sedation. Patient would like to talk about intrathecal pain pump I do believe it would be beneficial for her given her failure of conservative measures. Patient has tried and failed physical therapy. She is continuing a home stretching program and trying to stay as functional as possible. She is not on any anticoagulation therapy. M ost of her pain is in her low back and bilateral legs. ROS General: no recent weight change, no fever, no sleep disturbances Respiratory: no cough, no shortness of air, no recurring pulmonary infections Cardiovascular/Peripheral Vascular: No chest pain, No palpitations, no edema, no shortness of breath. Gastrointestinal: no incontinence, normal bowel movements reported Genitourinary: no incontinence Musculoskeletal: Back pain, leg pain Psychiatric: normal mood/ affect Neurological: [denies weakness in extremities], [denies balance issues] Objective:: Physical Exam General: Alert and oriented x3, no acute distress, pleasant and cooperative, [on room air] Lungs: Resps E/U, Symmetrical chest expansion, Eyes: PERRL Musculoskeletal: Flexion and extension of lumbar spine somewhat guarded secondary to pain, deep tendon reflexes normal, strength in upper and lower extremities [5/5], slightly antalgic gait noted Neurological: speech clear, district supervisor equal, no gross sensory deficits Assessment:: Degenerative disc disease lumbar spine with lumbar facet arthropathy lumbar spondylosis, spinal stenosis with neurogenic claudication Plan:: We will schedule a psychological evaluation for the patient to determine if she is an appropriate candidate for an intrathecal pain pump. We will then move forward with a shot trial. I have discussed this in detail with the patient. She understands risks and benefits. She would like to proceed. Dr. Kidd has reviewed this note and agrees with this plan of care. This note was dictated using voice recognition software and may contain errors or omissions
== END ==
PROVIDERS: PCP Internal Medicine Adolescent Medicine; Visit Provider Clinical Nurse Specialist Family Health
DX: M48.062 Spinal stenosis, lumbar region with neurogenic claudication (principal)
CPT/HCPCS: 99212

== ENCOUNTER → 2019-01-25 08:46 | Outpatient (POV) | payer MEDICARE, OTHER, SELFPAY ==
[2019-01-25 09:05] VITALS: BP 175/91; PULSE 89; RESP 18; O2SAT 98; BMI 27.4
--- NOTE | 2019-01-25 13:03 | HMH.PAINSOAP ---
[facility] Pain Management SOAP Note Subjective:: Patient is a pleasant 83-year-old white female who presents today for follow-up. Patient is planning on having an intrathecal pain pump trial. Patient had many questions that I answered for her. Patient has had a mild procedure along with multiple epidurals, facet joint injections and a lumbar RFA. She rates the pain a 6 out of 10 and states it is constant. Patient has tried and failed physical therapy she is continuing a home stretching program and trying to stay as functional as possible. She is not on any anticoagulation therapy. She is going today for psychological evaluation. ROS General: no recent weight change, no fever, no sleep disturbances Respiratory: no cough, no shortness of air, no recurring pulmonary infections Cardiovascular/Peripheral Vascular: No chest pain, No palpitations, no edema, no shortness of breath. Gastrointestinal: no incontinence, normal bowel movements reported Genitourinary: no incontinence Musculoskeletal: Back pain, leg pain Psychiatric: normal mood/ affect Neurological: [denies weakness in extremities], [denies balance issues] Objective:: Physical Exam General: Alert and oriented x3, no acute distress, pleasant and cooperative, [on room air] Lungs: Resps E/U, Symmetrical chest expansion, Eyes: PERRL Musculoskeletal: Flexion and extension of lumbar spine somewhat guarded secondary to pain, deep tendon reflexes normal, strength in upper and lower extremities [5/5], [abnormal gait noted] Neurological: speech clear, financial services specialist equal, no gross sensory deficits Assessment:: Degenerative disc disease lumbar spine with lumbar radiculopathy, spinal stenosis with neurogenic claudication Plan:: We will set up the patient for a intrathecal pain pump trial as soon as possible. She is currently not on any narcotic medications. She is not on any anticoagulation therapy. I will follow-up with her after her trial reassess her symptoms at that time.
--- NOTE | 2019-01-25 13:08 | P.CONS_ITS ---
[facility] Pain Management SOAP Note Subjective:: Patient is a pleasant 83-year-old white female who presents today for follow-up. Patient is planning on having an intrathecal pain pump trial. Patient had many questions that I answered for her. Patient has had a mild procedure along with multiple epidurals, facet joint injections and a lumbar RFA. She rates the pain a 6 out of 10 and states it is constant. Patient has tried and failed physical therapy she is continuing a home stretching program and trying to stay as functional as possible. She is not on any anticoagulation therapy. She is going today for psychological evaluation. ROS General: no recent weight change, no fever, no sleep disturbances Respiratory: no cough, no shortness of air, no recurring pulmonary infections Cardiovascular/Peripheral Vascular: No chest pain, No palpitations, no edema, no shortness of breath. Gastrointestinal: no incontinence, normal bowel movements reported Genitourinary: no incontinence Musculoskeletal: Back pain, leg pain Psychiatric: normal mood/ affect Neurological: [denies weakness in extremities], [denies balance issues] Objective:: Physical Exam General: Alert and oriented x3, no acute distress, pleasant and cooperative, [on room air] Lungs: Resps E/U, Symmetrical chest expansion, Eyes: PERRL Musculoskeletal: Flexion and extension of lumbar spine somewhat guarded secondary to pain, deep tendon reflexes normal, strength in upper and lower extremities [5/5], [abnormal gait noted] Neurological: speech clear, middle school librarian equal, no gross sensory deficits Assessment:: Degenerative disc disease lumbar spine with lumbar radiculopathy, spinal stenosis with neurogenic claudication Plan:: We will set up the patient for a intrathecal pain pump trial as soon as possible. She is currently not on any narcotic medications. She is not on any anticoagulation therapy. I will follow-up with her after her trial reassess her symptoms at that time.
== END ==
PROVIDERS: PCP Internal Medicine Adolescent Medicine; Visit Provider Clinical Nurse Specialist Family Health
DX: M51.16 Intervertebral disc disorders with radiculopathy, lumbar region (principal); M48.062 Spinal stenosis, lumbar region with neurogenic claudication
CPT/HCPCS: 99212

== ENCOUNTER → 2019-02-03 08:09 | Outpatient (CLI) | payer MEDICARE, OTHER, SELFPAY ==
[2019-02-03 09:01] LABS: Basophils % 0.3 % (0.1-2.0); Eosinophils # 0.2 K/mm3 (0.0-0.4); Eosinophils % 2.6 % (0.1-12.0); Hematocrit 42.9 % (37.0-47.0); Hemoglobin 12.9 g/dL (12.2-16.2); Lymphocytes % 32.2 % (10-50); Mean Corpuscular HGB Conc 30.1 g/dL (31.8-35.4); Mean Corpuscular Hemoglobin 30.1 pg (27.0-31.2); Mean Corpuscular Volume 99.8 fl (81-99); Mean Platelet Volume 7.6 fl (7.4-10.4); Monocytes # 0.3 K/mm3 (0.1-1.0); Monocytes % 5.6 % (1.7-9.3); Neutrophils # 3.7 K/mm3 (1.8-7.8); Neutrophils % 59.3 % (37.0-80.0); Platelet Count 354 K/mm3 (142-424); Red Cell Distribution Width 14.6 % (11.5-17.5); White Blood Count 6.2 K/mm3 (4.8-10.8)
[2019-02-03 10:11] LABS: Anion Gap 14.6 mEq/L (5-15); Blood Urea Nitrogen 15 mg/dL (7-18); Calcium 9.9 mg/dL (8.5-10.1); Carbon Dioxide 24 mmol/L (21.0-32.0); Chloride 103 mmol/L (98-107); Creatinine,Serum 0.92 mg/dL (0.55-1.02); Estimated Glomerular Filt Rate 58 ml/min (>60); GFR (African American) 71 ML/MIN (>60); Glucose 87 mg/dL (74-106); Potassium 4.6 mmoL/L (3.5-5.1); Sodium 137 mmol/L (136-145)
== END ==
PROVIDERS: Visit Provider Clinical Nurse Specialist Family Health
DX: Z01.818 Encounter for other preprocedural examination (principal)
CPT/HCPCS: 36415; 80048; 85025

== ENCOUNTER → 2019-02-14 09:49 | Outpatient (POV) | payer MEDICARE, OTHER, SELFPAY ==
--- NOTE | 2019-02-14 10:18 | P.CONS_ITS ---
[facility] Pain Management SOAP Note Subjective:: Patient is a pleasant 83-year-old white female who presents today for follow-up. Patient had an intrathecal pain pump implanted on the of this month. She had some itching and some annoyance with the Sima wound VAC. Patient wound VAC was removed and the patient incisions look good. No sign symptoms of infection she is continuing her antibiotics she does rate her pain a 7 out of 10 however on further discussion patient seems quite anxious today however she feels like the itching is being caused from her abdominal binder. She is currently on a morphine dose of 0.25 mg a day intrathecally. Review of Systems General: No recent weight changes, no fever, no sleep disturbances Respiratory: No cough, no shortness of air, no recurring pulmonary infections Cardiovascular/peripheral vascular: No chest pain, no palpitations, no edema, no shortness of breath Gastrointestinal: No new onset incontinence, normal bowel movements reported Genitourinary: No new onset incontinence Musculoskeletal: Back pain Psychiatric: Normal mood/affect Neurological: [Denies weakness in extremities], [denies balance issues] Objective:: Physical exam General: Alert and oriented x3, no acute distress, pleasant and cooperative, [on room air] Lungs: Respirations even and unlabored, symmetrical chest expansion Eyes: PERRL Musculoskeletal: Flexion and extension of lumbar spine somewhat guarded secondary to pain, deep tendon reflexes normal, strength in upper and lower extremities [5/5], [abnormal gait noted] Neurological: Speech clear, topper press operator automatic equal, no gross sensory deficit Assessment:: Degenerative disc disease lumbar spine with lumbar radiculopathy and spinal stenosis with neurogenic claudication Plan:: We will take the wound VAC off we will also cease the use of the abdominal binder I encouraged her to go by compression where to wear instead of the abdominal binder. I also discussed with her getting a shower. Patient is good to call us in the morning to discuss if she is doing any better. She does not want to make any changes to her intrathecal therapy at this time. Dr. Kidd has reviewed this note and agrees with this plan of care. This note was dictated using voice recognition software and make contain errors or omissions.
[2019-02-14 10:34] VITALS: BP 162/62; PULSE 87; RESP 18; O2SAT 98; BMI 15.9
== END ==
PROVIDERS: PCP Internal Medicine Adolescent Medicine; Visit Provider Clinical Nurse Specialist Family Health
DX: M51.16 Intervertebral disc disorders with radiculopathy, lumbar region (principal); M48.062 Spinal stenosis, lumbar region with neurogenic claudication
CPT/HCPCS: 99212

== ENCOUNTER → 2019-02-28 12:26 | Outpatient (POV) | payer MEDICARE, OTHER, SELFPAY ==
--- NOTE | 2019-02-28 13:06 | P.CONS_ITS ---
[facility] Pain Management SOAP Note Subjective:: Patient is a pleasant 83-year-old white female who presents today for follow-up. Patient rates her pain a 2 out of 10 she states she is much more active and able to do things that she was unable to before. Patient states that she is standing tolerance and walking longer she finds some weakness at times however we discussed building the muscles back up in regards to her previous pain complaints. Patient's only complaint today she still have some residual itching around where the abdominal binder was. Patient and I discussed utilizing Benadryl cream to help alleviate some of that itching. Patient was prescribed a round of steroids by her primary care physician which she stated caused her it henrry to get worse. However she completed the round of steroids. Overall the patient is doing well. ROS General: no recent weight change, no fever, no sleep disturbances Respiratory: no cough, no shortness of air, no recurring pulmonary infections Cardiovascular/Peripheral Vascular: No chest pain, No palpitations, no edema, no shortness of breath. Gastrointestinal: no incontinence, normal bowel movements reported Genitourinary: no incontinence Musculoskeletal: Back pain, leg pain Psychiatric: normal mood/ affect Neurological: [denies weakness in extremities], [denies balance issues] Objective:: Physical Exam General: Alert and oriented x3, no acute distress, pleasant and cooperative, [on room air] Lungs: Resps E/U, Symmetrical chest expansion, Eyes: PERRL Musculoskeletal: Flexion and extension of lumbar spine somewhat guarded secondary to pain, deep tendon reflexes normal, strength in upper and lower extremities [5/5], antalgic gait noted Neurological: speech clear, motor equipment lieutenant equal, no gross sensory deficits Assessment:: 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 Dr. Kidd has reviewed this note and agrees with this plan of care. This note was dictated using voice recognition software and may contain errors or omissions Pain Management Hx Components *Have you ever received a pneumonia vaccine?: Yes *Have you received a flu vaccine this season?: Yes - *Social History *Occupational Status:: other *Travel in the last 8 weeks: None
[2019-02-28 13:09] VITALS: BP 178/77; PULSE 65; RESP 18; O2SAT 98; BMI 27.4
== END ==
PROVIDERS: PCP Internal Medicine Adolescent Medicine; Visit Provider Clinical Nurse Specialist Family Health
DX: M51.16 Intervertebral disc disorders with radiculopathy, lumbar region (principal); M48.062 Spinal stenosis, lumbar region with neurogenic claudication
CPT/HCPCS: 99213

== ENCOUNTER → 2019-03-14 14:05 | Outpatient (POV) | payer MEDICARE, OTHER, SELFPAY ==
[2019-03-14 14:41] VITALS: BP 175/70; PULSE 72; RESP 18; O2SAT 98; BMI 26.6
--- NOTE | 2019-03-14 14:55 | HMH.PMPROC ---
- Procedure Date: 03/14/19 Time: 14:55 Anesthesiologist:: Alycia Remy APRN Complications:: None Pre-procedure Diagnosis:: Degenerative disc disease lumbar spine with lumbar radiculopathy and spinal stenosis and neurogenic claudication Post-procedure Diagnosis:: Same Indications for Procedure:: Patient is an 83-year-old white female who is pissed off . She states that she is worse than she was prior to her implant. Patient states that she has not been able to do anything she has not left her house or been to latter-day in 5 weeks. She rates her pain a 6 out of 10. She states that she cannot stand or walk any distance. Patient states she does not believe her pump is working. She states that her boluses do not help her in any way. Physical Exam General: Alert and oriented x3, no acute distress, pleasant and cooperative, [on room air] Lungs: Resps E/U, Symmetrical chest expansion, Eyes: PERRL Musculoskeletal: Flexion and extension of lumbar spine somewhat guarded secondary to pain, deep tendon reflexes normal, strength in upper and lower extremities [5/5], [abnormal gait noted] Neurological: speech clear, surface hydrologist equal, no gross sensory deficits Procedure Details:: P informed consent was obtained and the risk and benefits of the procedure were explained to the patient. The patient was taken to the procedure room where noninvasive monitoring was placed including noninvasive blood pressure cuff and pulse oximeter. Patient's pump was interrogated and reprogrammed. The pump was turned off. The patient tolerated the procedure well. Plan and Disposition:: We will see the patient back tomorrow see if she has had any difference in her pain. Patient and I discussed explant along with potential medication changes. We will reassess her tomorrow. She is been instructed to call the office if she has any issues prior to her next appointment. Dr. Kidd has reviewed this note and agrees with this plan of care. This note was dictated using voice recognition software and may contain errors or omissions
== END ==
PROVIDERS: PCP Internal Medicine Adolescent Medicine; Visit Provider Clinical Nurse Specialist Family Health
DX: M51.16 Intervertebral disc disorders with radiculopathy, lumbar region (principal); M48.062 Spinal stenosis, lumbar region with neurogenic claudication
CPT/HCPCS: 62368

== ENCOUNTER → 2019-03-15 11:21 | Outpatient (POV) | payer MEDICARE, OTHER, SELFPAY ==
[2019-03-15 12:11] VITALS: BP 157/77; PULSE 86; RESP 18; O2SAT 97; BMI 26.5
--- NOTE | 2019-03-15 12:31 | P.PCN_ITS ---
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 Patient states she did not notice much change in her pain however she does want her back on today. Patient had a long discussion in regards to the way we would handle her pain moving forward. Patient and I discussed utilizing Dilaudid prior to discussing explant. Patient rates her pain today a 6 out of 10. Physical Exam General: Alert and oriented x3, no acute distress, pleasant and cooperative, [on room air] Lungs: Resps E/U, Symmetrical chest expansion, Eyes: PERRL Musculoskeletal: Flexion and extension of lumbar spine somewhat guarded seconda ry to pain, deep tendon reflexes normal, strength in upper and lower extremities [5/5], [abnormal gait noted] Neurological: speech clear, venue coordinator equal, no gross sensory deficits Procedure Details:: Informed consent was obtained and the risk and benefits of the procedure were explained to the patient. The patient was taken to the procedure room where noninvasive monitoring was placed including noninvasive blood pressure cuff and pulse oximeter. Patient's pump was interrogated and reprogrammed. The infusion rate was turned back on at 0.25 mg/day. The patient tolerated the procedure well. Plan and Disposition:: We will order Dilaudid 1 mg/mL for her we will change her over to Dilaudid at her next visit. We will start her at 0.[address] Kidd has reviewed this note and agrees with this plan of care. This note was dictated using voice recognition software and may contain errors or omissions
== END ==
PROVIDERS: PCP Internal Medicine Adolescent Medicine; Visit Provider Clinical Nurse Specialist Family Health
DX: M51.16 Intervertebral disc disorders with radiculopathy, lumbar region (principal); M48.062 Spinal stenosis, lumbar region with neurogenic claudication
CPT/HCPCS: 62368; 62370

== ENCOUNTER → 2019-03-29 13:09 | Outpatient (POV) | payer MEDICARE, OTHER, SELFPAY ==
[2019-03-29 13:19] VITALS: BP 155/73; PULSE 85; RESP 18; O2SAT 98; BMI 26.6
--- NOTE | 2019-03-29 13:32 | HMH.PMPROC ---
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 Patient states that she has had some improvement she rates her pain a 3 out of 10 she states her itching has gotten better. She denies any side effects to this medication she would like a slight increase today she is currently at 0.075 mg of Dilaudid we will switch her to 0.1 mg of Dilaudid. Physical Exam General: Alert and oriented x3, no acute distress, pleasant and cooperative, [on room air] Lungs: Resps E/U, Symmetrical chest expansion, Eyes: PERRL Musculoskeletal: Flexion and extension of lumbar spine somewhat guarded secondary to pain, deep tendon reflexes normal, strength in upper and lower extremities [5/5], [abnormal gait noted] Neurological: speech clear, strategic communications manager equal, no gross sensory deficits Procedure Details:: Informed consent was obtained and the risk and benefits of the procedure were explained to the patient. The patient was taken to the procedure room where noninvasive monitoring was placed including noninvasive blood pressure cuff and pulse oximeter. Patient's pump was interrogated and reprogrammed. The infusion rate was switched to 0.1 mg of Dilaudid a day and her PTC was set up at 0.01 mg every 6 hours as needed. The patient tolerated the procedure well. Plan and Disposition:: I will see the patient back in 1 week reassess her symptoms at that time she is been instructed to call the office if she has any issues prior to her next appointment. Dr. Kidd has reviewed this note and agrees with this plan of care. This note was dictated using voice recognition software and may contain errors or omissions
== END ==
PROVIDERS: PCP Internal Medicine Adolescent Medicine; Visit Provider Clinical Nurse Specialist Family Health
DX: M48.062 Spinal stenosis, lumbar region with neurogenic claudication (principal); M51.16 Intervertebral disc disorders with radiculopathy, lumbar region
CPT/HCPCS: 62368

== ENCOUNTER → 2019-04-04 08:37 | Outpatient (POV) | payer MEDICARE, OTHER, SELFPAY ==
[2019-04-04 09:09] VITALS: BP 159/66; PULSE 75; RESP 18; O2SAT 98; BMI 26.5
--- NOTE | 2019-04-04 09:28 | HMH.PMPROC ---
- Procedure Date: 04/04/19 Time: 09:28 Anesthesiologist:: Alycia Remy APRN Complications:: None Pre-procedure Diagnosis:: Degenerative disc disease lumbar spine with lumbar radiculopathy along with spinal stenosis and neurogenic claudication Post-procedure Diagnosis:: Same Indications for Procedure:: Patient is a pleasant 83-year-old white female who presents today for follow-up and intrathecal pain pump adjustment. She is currently on a Dilaudid infusion of 0.1 mg/day. She denies side effects. She rates her pain a 3 out of 10 she states she is 25 to 30% better. Patient states that when she goes out for a walk or any strenuous activity like shopping her pain gets up to an 8 out of 10 however it resolved within 45 minutes to an hour afterwards. I discussed with her utilizing her PTC prior to this. Her other complaint is that the site over her pump is quite sore. I had ordered her compounding cream however she refused it when contacted by the pharmacy. She states she wants to have something that she can have picked up here in [place]. I discussed potentially diclofenac cream. She denies any side effects to her medication. [facility] #[id number] reviewed and appropriate. Physical Exam General: Alert and oriented x3, no acute distress, pleasant and cooperative, [on room air] Lungs: Resps E/U, Symmetrical chest expansion, Eyes: PERRL Musculoskeletal: Flexion and extension of lumbar spine somewhat guarded secondary to pain, deep tendon reflexes normal, strength in upper and lower extremities [5/5], [abnormal gait noted] Neurological: speech clear, ramp attendant equal, no gross sensory deficits Procedure Details:: Informed consent was obtained and the risk and benefits of the procedure were explained to the patient. The patient was taken to the procedure room where noninvasive monitoring was placed including noninvasive blood pressure cuff and pulse oximeter. Patient's pump was interrogated and reprogrammed. The infusion rate was increased to 0.13 mg of Dilaudid a day. The patient tolerated the procedure well. Plan and Disposition:: I discussed with the patient that we will only make adjustments every 2 weeks from here on out. Patient will be seen in 2 weeks reassess at that time she is been instructed to call the office if she has any issues prior to her next appointment. Patient can consider the diclofenac cream if it is beneficial for her we will order it. Dr. Kidd has reviewed this note and agrees with this plan of care. This note was dictated using voice recognition software and may contain errors or omissions
--- NOTE | 2019-04-04 09:31 | P.PCN_ITS ---
- Procedure Date: 04/04/19 Time: 09:28 Anesthesiologist:: Alycia Remy APRN Complications:: None Pre-procedure Diagnosis:: Degenerative disc disease lumbar spine with lumbar radiculopathy along with spinal stenosis and neurogenic claudication Post-procedure Diagnosis:: Same Indications for Procedure:: Patient is a pleasant 83-year-old white female who presents today for follow-up and intrathecal pain pump adjustment. She is currently on a Dilaudid infusion of 0.1 mg/day. She denies side effects. She rates her pain a 3 out of 10 she states she is 25 to 30% better. Patient states that when she goes out for a walk or any strenuous activity like shopping her pain gets up to an 8 out of 10 however it resolved within 45 minutes to an hour afterwards. I discussed with her utilizing her PTC prior to this. Her other complaint is that the site over her pump is quite sore. I had ordered her compounding cream however she refused it when contacted by the pharmacy. She states she wants to have something that she can have picked up here in [place]. I discussed potentially diclofenac cream. She denies any side effects to her medication. [facility] #[id number] reviewed and appropriate. Physical Exam General: Alert and oriented x3, no acute distress, pleasant and cooperative, [on room air] Lungs: Resps E/U, Symmetrical chest expansion, Eyes: PERRL Musculoskeletal: Flexion and extension of lumbar spine somewhat guarded secondary to pain, deep tendon reflexes normal, strength in upper and lower extremities [5/5], [abnormal gait noted] Neurological: speech clear, drywall carrier equal, no gross sensory deficits Procedure Details:: Informed consent was obtained and the risk and benefits of the procedure were explained to the patient. The patient was taken to the procedure room where noninvasive monitoring was placed including noninvasive blood pressure cuff and pulse oximeter. Patient's pump was interrogated and reprogrammed. The infusion rate was increased to 0.13 mg of Dilaudid a day. The patient tolerated the procedure well. Plan and Disposition:: I discussed with the patient that we will only make adjustments every 2 weeks from here on out. Patient will be seen in 2 weeks reassess at that time she is been instructed to call the office if she has any issues prior to her next appointment. Patient can consider the diclofenac cream if it is beneficial for her we will order it. Dr. Kidd has reviewed this note and agrees with this plan of care. This note was dictated using voice recognition software and may contain errors or omissions
== END ==
PROVIDERS: PCP Internal Medicine Adolescent Medicine; Visit Provider Clinical Nurse Specialist Family Health
DX: M51.16 Intervertebral disc disorders with radiculopathy, lumbar region (principal); M48.062 Spinal stenosis, lumbar region with neurogenic claudication
CPT/HCPCS: 62368; 99212

== ENCOUNTER → 2019-04-18 08:44 | Outpatient (POV) | payer MEDICARE, OTHER, SELFPAY ==
[2019-04-18 08:50] VITALS: BP 120/93; PULSE 87; RESP 18; O2SAT 99; BMI 26.3
--- NOTE | 2019-04-18 09:21 | HMH.PMPROC ---
- Procedure Date: 04/18/19 Time: 09:21 Anesthesiologist:: Alycia Remy APRN Complications:: None Pre-procedure Diagnosis:: Degenerative disc disease lumbar spine with lumbar radiculopathy spinal stenosis with neurogenic claudication Post-procedure Diagnosis:: Same Indications for Procedure:: Patient is an 83-year-old white female who presents today for intrathecal pain pump adjustment. Patient states she is quite disappointed in her experience with her intrathecal pain pump. It has been 9 weeks. Patient has had a change of her morphine to Dilaudid which she originally stated she had some relief from now she stating she has had no relief since the beginning of the process and that is actually gotten worse . Patient states that the boluses do not help. She states that she is extremely tender over the pump area in the ankle area. As we previously discussed I wanted to put her on gabapentin compounding cream which she refused to take and is settled on diclofenac cream. She states it helps a little bit. Patient would like to know what is next . Patient states that anchor site in her low back is tender to touch on palpation I can palpate the anchor there may be slow swelling however minimal most. I encouraged her to can continue the diclofenac gel. Patient has discussed her anxiety in the past however she is not interested in any kind of treatment at this time for it. This may be playing a role in some of her current pain complaints. Of note patient is walking straighter and more stable than prior to pump implant. Patient does report her pain a 5 out of 10 however previous reports prior pain pump implantation ranged from a 7 out of 10-10 out of 10. Physical Exam General: Alert and oriented x3, no acute distress, pleasant and cooperative, [on room air] Lungs: Resps E/U, Symmetrical chest expansion, Eyes: PERRL Musculoskeletal: Flexion and extension of lumbar spine somewhat guarded secondary to pain, deep tendon reflexes normal, strength in upper and lower extremities [5/5], antalgic gait noted Neurological: speech clear, reeler operator equal, no gross sensory deficits Procedure Details:: Informed consent was obtained and the risk and benefits of the procedure were explained to the patient. The patient was taken to the procedure room where noninvasive monitoring was placed including noninvasive blood pressure cuff and pulse oximeter. Patient's pump was interrogated and reprogrammed. The infusion rate was increased 2.22 mg of Dilaudid a day. The patient tolerated the procedure well. Plan and Disposition:: We will see the patient back in 1 week reassess her symptoms at that time if she has not had any improvement we will schedule her for a catheter dye study if she does not get improvement with this we will move forward with explantation. Dr. Kidd has reviewed this note and agrees with this plan of care. This note was dictated using voice recognition software and may contain errors or omissions
== END ==
PROVIDERS: PCP Internal Medicine Adolescent Medicine; Visit Provider Clinical Nurse Specialist Family Health
DX: M48.062 Spinal stenosis, lumbar region with neurogenic claudication (principal)
CPT/HCPCS: 62368; 99212

== ENCOUNTER → 2019-04-25 08:42 | Outpatient (POV) | payer MEDICARE, OTHER, SELFPAY ==
[2019-04-25 09:02] VITALS: BP 173/75; PULSE 83; RESP 18; O2SAT 98; BMI 26.2
--- NOTE | 2019-04-25 09:28 | P.PCN_ITS ---
- Procedure Date: 04/25/19 Time: 09:21 Anesthesiologist:: Alycia Remy APRN Complications:: None Pre-procedure Diagnosis:: Degenerative disc disease lumbar spine with lumbar radiculopathy spinal stenosis with neurogenic claudication Post-procedure Diagnosis:: Dr. Kidd has reviewed this note and agrees with this plan of care. This note was dictated using voice recognition software and may contain errors or omissions Indications for Procedure:: Patient is an 83-year-old white female who presents today aggravated with her current regimen of care. Patient currently has an intrathecal pain pump which she states she got on 08 February and since then she has had no relief of her pain. Patient rates her pain today 2 out of 10. Patient was switch from morphine to Dilaudid she states she has not noticed a difference at her last visit she was increased to 100% she states again she did not notice any difference. Patient and I had discussed a catheter dye study however she states I do not need a dye study to know that this is not working . Patient states I just want this out of my back because is causing me to much stress . Patient also states that the area over her pump is tender. Patient was offered gabapentin cream which she refused she settled on diclofenac cream however she states this has not worked a bit for her. I am not surprised by this I tried to discuss the need for a nerve like medication for helping nerve regeneration however she is uninterested. I discussed with her at this point this will be the end of our options for treating her. Patient is uninterested in injective therapies. Patient will have to go on with her primary care physician post release from surgeon from intrathecal pain pump removal. Patient has quoted many times that she would like to have no pain however at this point this is quite unreasonable. We will move forward with decreasing her intrathecal infusion by 50% and having her set up for explant Physical Exam General: Alert and oriented x3, no acute distress, pleasant and cooperative, Lungs: Resps E/U, Symmetrical chest expansion, Eyes: PERRL Musculoskeletal: Flexion and extension of lumbar spine somewhat guarded secondary to pain, deep tendon reflexes normal, strength in upper and lower extremities [5/5], [abnormal gait noted] Neurological: speech clear, junk removal specialist equal, no gross sensory deficits Procedure Details:: Informed consent was obtained and the risk and benefits of the procedure were explained to the patient. The patient was taken to the procedure room where noninvasive monitoring was placed including noninvasive blood pressure cuff and pulse oximeter. Patient's pump was interrogated and reprogrammed. The infusion rate was decreased to 0.1 mg of Dilaudid a day. The patient tolerated the procedure well. Plan and Disposition:: We will set the patient up for explant of her intrathecal pain pump. She is not on any anticoagulation therapy. Patient will be seen by the surgeon for this at this point there is nothing else our office can offer her. Dr. Kidd has reviewed this note and agrees with this plan of care. This note was dictated using voice recognition software and may contain errors or omissions
== END ==
PROVIDERS: PCP Internal Medicine Adolescent Medicine; Visit Provider Clinical Nurse Specialist Family Health
DX: M48.062 Spinal stenosis, lumbar region with neurogenic claudication (principal)
CPT/HCPCS: 62368

== ENCOUNTER → 2019-05-02 12:48 | Outpatient (POV) | payer MEDICARE, OTHER, SELFPAY ==
[2019-05-02 13:07] VITALS: BP 170/73; PULSE 87; RESP 16; O2SAT 98; BMI 25.6
--- NOTE | 2019-05-03 08:46 | HMH.PMPROC ---
- Procedure Date: 05/02/19 Time: 13:30 Anesthesiologist:: Alycia Remy APRN Complications:: None Pre-procedure Diagnosis:: Degenerative disc disease lumbar spine with lumbar radiculopathy spinal stenosis with neurogenic claudication Post-procedure Diagnosis:: Same Indications for Procedure:: Patient is an 83-year-old white female who presents today quite agitated. Patient rates her pain today at 3 out of 10. She states her intrathecal pain pump is not working and is moved . I discussed with the patient that the incisional line is right above the pain pump as it always has been however she states that it used to be lower in her but talk area. Patient states that she does not want an implanted foreign body in her anymore and wants me to cut it out. Patient is on the schedule in [place] with Dr. Femi Romero for consultation in regards to removing it. We decreased her by half last time she states that she feels like her pump is on her hip . She also states that she feels like she needs something for anxiety and nerves. Patient states she wants a pain pump turned off and the medication drained out of it. Patient up until this point has not been compliant with therapy I do believe it would be best to move forward with an explantation. Physical Exam General: Alert and oriented x3, no acute distress, pleasant and cooperative, [on room air] Lungs: Resps E/U, Symmetrical chest expansion, Eyes: PERRL Musculoskeletal: Flexion and extension of lumbar spine somewhat guarded secondary to pain, deep tendon reflexes normal, strength in upper and lower extremities [5/5], antalgic gait noted Skin: There seems to be an excoriation over the incisional line. It looks like it is been rubbed repeatedly. Neurological: speech clear, material control analyst equal, no gross sensory deficits Procedure Details:: Informed consent was obtained and the risk and benefits of the procedure were explained to the patient. The patient was taken to the procedure room where noninvasive monitoring was placed including noninvasive blood pressure cuff and pulse oximeter. Patient's pump was interrogated. The area over the pump was cleansed with chlorhexidine as a cleansing solution. In sterile fashion the pump was accessed with a 22-gauge needle. Approximately 15 mL's were removed of the pump solution and discarded appropriately. The pump was left empty. The needle was withdrawn and a bandage was placed over the puncture site. The infusion rate was reprogrammed to a rate of 0. The patient tolerated the procedure well. Plan and Disposition:: Patient will be seen by Dr. Wong more on Thursday for explantation consult. Patient and I discussed not rubbing the site of the pump also not utilizing the diclofenac cream at this point. Patient is going to go to her primary care physician right after this visit to discuss anxiety medication. Dr. Kidd has reviewed this note and agrees with this plan of care. This note was dictated using voice recognition software and may contain errors or omissions
--- NOTE | 2019-05-03 08:49 | P.PCN_ITS ---
- Procedure Date: 05/02/19 Time: 13:30 Anesthesiologist:: Alycia Remy APRN Complications:: None Pre-procedure Diagnosis:: Degenerative disc disease lumbar spine with lumbar radiculopathy spinal stenosis with neurogenic claudication Post-procedure Diagnosis:: Same Indications for Procedure:: Patient is an 83-year-old white female who presents today quite agitated. Patient rates her pain today at 3 out of 10. She states her intrathecal pain pump is not working and is moved . I discussed with the patient that the incisional line is right above the pain pump as it always has been however she states that it used to be lower in her but talk area. Patient states that she does not want an implanted foreign body in her anymore and wants me to cut it out. Patient is on the schedule in [place] with Dr. Femi Romero for consultation in regards to removing it. We decreased her by half last time she states that she feels like her pump is on her hip . She also states that she feels like she needs something for anxiety and nerves. Patient states she wants a pain pump turned off and the medication drained out of it. Patient up until this point has not been compliant with therapy I do believe it would be best to move forward with an explantation. Physical Exam General: Alert and oriented x3, no acute distress, pleasant and cooperative, [on room air] Lungs: Resps E/U, Symmetrical chest expansion, Eyes: PERRL Musculoskeletal: Flexion and extension of lumbar spine somewhat guarded secondary to pain, deep tendon reflexes normal, strength in upper and lower ext remities [5/5], antalgic gait noted Skin: There seems to be an excoriation over the incisional line. It looks like it is been rubbed repeatedly. Neurological: speech clear, fund manager equal, no gross sensory deficits Procedure Details:: Informed consent was obtained and the risk and benefits of the procedure were explained to the patient. The patient was taken to the procedure room where noninvasive monitoring was placed including noninvasive blood pressure cuff and pulse oximeter. Patient's pump was interrogated. The area over the pump was cleansed with chlorhexidine as a cleansing solution. In sterile fashion the pump was accessed with a 22-gauge needle. Approximately 15 mL's were removed of the pump solution and discarded appropriately. The pump was left empty. The needle was withdrawn and a bandage was placed over the puncture site. The infusion rate was reprogrammed to a rate of 0. The patient tolerated the procedure well. Plan and Disposition:: Patient will be seen by Dr. Wong more on Thursday for explantation consult. Patient and I discussed not rubbing the site of the pump also not utilizing the diclofenac cream at this point. Patient is going to go to her primary care physician right after this visit to discuss anxiety medication. Dr. Kidd has reviewed this note and agrees with this plan of care. This note was dictated using voice recognition software and may contain errors or omissions
== END ==
PROVIDERS: PCP Internal Medicine Adolescent Medicine; Visit Provider Clinical Nurse Specialist Family Health
DX: M48.062 Spinal stenosis, lumbar region with neurogenic claudication (principal)
CPT/HCPCS: 62368

== ENCOUNTER → 2019-05-19 09:27 | Outpatient (POV) | payer MEDICARE, OTHER, SELFPAY ==
[2019-05-19 10:07] VITALS: BP 158/85; PULSE 92; RESP 18; O2SAT 98; BMI 24.8
--- NOTE | 2019-05-19 10:36 | HMH.PAINSOAP ---
[facility] Pain Management SOAP Note Subjective:: Patient is a pleasant 84-year-old white female who presents today for follow-up after intrathecal pain pump Explant. Patient reports that she did not get relief with her intrathecal pain therapy. Patient says since her intrathecal pump has been removed, her pain is now a 2 out of 10. Patient says she is doing much better with her pain. She says she does not want to do any further implantable devices. She is not interested in injective therapy. Patient will be following up in 1 week to have her sutures removed. She is continuing with anti-inflammatories and a home stretching program. Patient is asking to have her sutures removed today. She says that they are causing her to have itching and driving her crazy . Review of Systems General: No recent weight changes, no fever, no sleep disturbances Respiratory: No cough, no shortness of air, no recurring pulmonary infections Cardiovascular/peripheral vascular: No chest pain, no palpitations, no edema, no shortness of breath Gastrointestinal: No new onset incontinence, normal bowel movements reported Genitourinary: No new onset incontinence Musculoskeletal: Back pain Psychiatric: Normal mood/affect Neurological: [Denies weakness in extremities], [denies balance issues] Objective:: Physical exam General: Alert and oriented x3, no acute distress, pleasant and cooperative, [on room air] Lungs: Respirations even and unlabored, symmetrical chest expansion Eyes: PERRL Musculoskeletal: Flexion and extension of lumbar spine somewhat guarded secondary to pain, deep tendon reflexes normal, strength in upper and lower extremities [5/5], slightly antalgic gait noted Neurological: Speech clear, silver spray worker equal, no gross sensory deficit Integumentary: Incision well approximated, sutures intact. No redness, no edema, no drainage noted to the incision site Assessment:: Degenerative disc disease lumbar spine with lumbar radiculopathy Plan:: We will follow-up with patient in 1 week to remove her sutures. We will reassess her symptoms at that time. She has been instructed to contact the clinic if she has any concerns before her next. Dr. Kidd has reviewed this note and agrees with this plan of care. This note was dictated using voice recognition software and make contain errors or omissions. [facility] History I have reviewed the patient's past medical history: Yes Medical History: Reports:: Gastroesophageal Reflux Disease(GERD), Hyperlipidemia, Hypertension Denies:: Cancer, Diabetes Mellitus Type 1, Diabetes Mellitus Type 2, Internal Pacemaker, MRSA, Seizures *Have you ever received a pneumonia vaccine?: No *Have you received a flu vaccine this season?: No Other Medical History: Reports: Hypothyroidism, Thyroid Disease (THYROIDECTOMY). Denies: Blood Transfusion Reaction Other Surgeries: Yes: Appendectomy, Hysterectomy-Total, Thyroidectomy, Other (back). No: Pacemaker Amputation: No Fractures: No - *Social History Smoking Status: Never smoker Alcohol Intake: never Substance Use Type: denies use *Occupational Status:: retired Housing: house Household Members: family *Travel in the last 8 weeks: None Family Hx:: Unable to obtain
--- NOTE | 2019-05-19 10:40 | P.CONS_ITS ---
[facility] Pain Management SOAP Note Subjective:: Patient is a pleasant 84-year-old white female who presents today for follow-up after intrathecal pain pump Explant. Patient reports that she did not get relief with her intrathecal pain therapy. Patient says since her intrathecal pump has been removed, her pain is now a 2 out of 10. Patient says she is doing much better with her pain. She says she does not want to do any further implantable devices. She is not interested in injective therapy. Patient will be following up in 1 week to have her sutures removed. She is continuing with anti-inflammatories and a home stretching program. Patient is asking to have her sutures removed today. She says that they are causing her to have itching and driving her crazy . Review of Systems General: No recent weight changes, no fever, no sleep disturbances Respiratory: No cough, no shortness of air, no recurring pulmonary infections Cardiovascular/peripheral vascular: No chest pain, no palpitations, no edema, no shortness of breath Gastrointestinal: No new onset incontinence, normal bowel movements reported Genitourinary: No new onset incontinence Musculoskeletal: Back pain Psychiatric: Normal mood/affect Neurological: [Denies weakness in extremities], [denies balance issues] Objective:: Physical exam General: Alert and oriented x3, no acute distress, pleasant and cooperative, [on room air] Lungs: Respirations even and unlabored, symmetrical chest expansion Eyes: PERRL Musculoskeletal: Flexion and extension of lumbar spine somewhat guarded secondary to pain, deep tendon reflexes normal, strength in upper and lower extremities [5/5], slightly antalgic gait noted Neurological: Speech clear, tire balancer equal, no gross sensory deficit Integumentary: Incision well approximated, sutures intact. No redness, no edema, no drainage noted to the incision site Assessment:: Degenerative disc disease lumbar spine with lumbar radiculopathy Plan:: We will follow-up with patient in 1 week to remove her sutures. We will reassess her symptoms at that time. She has been instructed to contact the clinic if she has any concerns before her next. Dr. Kidd has reviewed this note and agrees with this plan of care. This note was dictated using voice recognition software and make contain errors or omissions. [facility] History I have reviewed the patient's past medical history: Yes Medical History: Reports:: Gastroesophageal Reflux Disease(GERD), Hyperlipidemia, Hypertension Denies:: Cancer, Diabetes Mellitus Type 1, Diabetes Mellitus Type 2, Internal Pacemaker, MRSA, Seizures *Have you ever received a pneumonia vaccine?: No *Have you received a flu vaccine this season?: No Other Medical History: Reports: Hypothyroidism, Thyroid Disease (THYROIDECTOMY). Denies: Blood Transfusion Reaction Other Surgeries: Yes: Appendectomy, Hysterectomy-Total, Thyroidectomy, Other (back). No: Pacemaker Amputation: No Fractures: No - *Social History Smoking Status: Never smoker Alcohol Intake: never Substance Use Type: denies use *Occupational Status:: retired Housing: house Household Members: family *Travel in the last 8 weeks: None Family Hx:: Unable to obtain
== END ==
PROVIDERS: PCP Internal Medicine Adolescent Medicine; Visit Provider Clinical Nurse Specialist Family Health
DX: M51.16 Intervertebral disc disorders with radiculopathy, lumbar region (principal)
CPT/HCPCS: 99212

== ENCOUNTER → 2019-05-27 08:56 | Outpatient (CLI) | payer MEDICARE, OTHER, SELFPAY ==
[2019-05-27 09:56] LABS: Basophils % 0.4 % (0.1-2.0); Eosinophils # 0.1 K/mm3 (0.0-0.4); Eosinophils % 0.9 % (0.1-12.0); Hematocrit 43.2 % (37.0-47.0); Hemoglobin 13.1 g/dL (12.2-16.2); Lymphocytes # 2.3 K/mm3 (0.7-4.5); Lymphocytes % 42.4 % (10-50); Mean Corpuscular HGB Conc 30.4 g/dL (31.8-35.4); Mean Corpuscular Hemoglobin 29.6 pg (27.0-31.2); Mean Corpuscular Volume 97.6 fl (81-99); Monocytes # 0.3 K/mm3 (0.1-1.0); Monocytes % 5.8 % (1.7-9.3); Neutrophils # 2.8 K/mm3 (1.8-7.8); Neutrophils % 50.4 % (37.0-80.0); Platelet Count 409 K/mm3 (142-424); Red Blood Count 4.43 M/mm3 (4.20-5.40); Red Cell Distribution Width 15.3 % (11.5-17.5); White Blood Count 5.5 K/mm3 (4.8-10.8)
[2019-05-27 10:52] LABS: Alanine Aminotransferase 23 U/L (12-78); Albumin/Globulin Ratio 1.3 (1.1-1.8); Alkaline Phosphatase 75 U/L (46-116); Anion Gap 14.3 mEq/L (5-15); Aspartate Amino Transferase 16 U/L (15-37); Bilirubin,Total 0.5 mg/dL (0.2-1.0); Blood Urea Nitrogen 19 mg/dL (7-18); Carbon Dioxide 25 mmol/L (21.0-32.0); Chloride 104 mmol/L (98-107); Chol/HDL Ratio 2.8 (1-3.5); Cholesterol 224 mg/dL (140-200); Creatinine,Serum 0.86 mg/dL (0.55-1.02); Estimated Glomerular Filt Rate 63 ml/min (>60); GFR (African American) 76 ML/MIN (>60); Globulin 3.1 gm/dl (1.3-3.2); Glucose 89 mg/dL (74-106); HDL Cholesterol 80 mg/dL (29-89); LDL Cholesterol 115 mg/dL (0-130); Potassium 4.3 mmoL/L (3.5-5.1); Sodium 139 mmol/L (136-145); Thyroid Stimulating Hormone 4.44 uIU/ml (0.358-3.740); Total Protein,Serum 7.1 gm/dL (6.4-8.2); Triglycerides 145 mg/dL (30-200); VLDL Cholesterol 29 mg/dL (0-40)
== END ==
PROVIDERS: Visit Provider Internal Medicine Adolescent Medicine
DX: E78.5 Hyperlipidemia, unspecified (principal); E03.9 Hypothyroidism, unspecified
CPT/HCPCS: 36415; 80053; 80061; 84443; 85025

== ENCOUNTER → 2019-05-27 13:52 | Outpatient (POV) | payer MEDICARE, OTHER, SELFPAY ==
[2019-05-27 14:06] VITALS: BP 146/67; PULSE 104; RESP 20; O2SAT 98; BMI 24.8
--- NOTE | 2019-05-27 14:57 | P.CONS_ITS ---
[facility] Pain Management SOAP Note Subjective:: This patient is a pleasant 84-year-old white female who we are going up after intrathecal pain pump explant. She was not getting relief from her intrathecal therapy. Her incisions have healed very nicely. She has a pain score 1 out of 10. She is doing very well after removal of her intrathecal pain pump. She is also much more functional. She has no complaints and no complications. Objective:: Alert and oriented x3 no acute distress. Patient does have an antalgic gait. Motor strength of the lower extremities is 5/5. There is no gross sensory deficit. Incision has healed very nicely. 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 We will see her back on a as needed basis. We will take out her sutures today and follow-up with their if needed. [facility] History I have reviewed the patient's past medical history: Yes Medical History: Reports:: Gastroesophageal Reflux Disease(GERD), Hyperlipidemia, Hypertension Denies:: Cancer, Diabetes Mellitus Type 1, Diabetes Mellitus Type 2, Internal Pacemaker, MRSA, Seizures *Have you ever received a pneumonia vaccine?: Yes *Have you received a flu vaccine this season?: Yes Other Medical History: Reports: Hypothyroidism, Thyroid Disease (THYROIDECTOMY). Denies: Blood Transfusion Reaction Other Surgeries: Yes: Appendectomy, Hysterectomy-Total, Thyroidectomy, Other (back). No: Pacemaker Amputation: No Fractures: No - *Social History Smoking Status: Never smoker Alcohol Intake: never Substance Use Type: denies use *Occupational Status:: retired Housing: house Household Members: family *Travel in the last 8 weeks: None Family Hx:: Unable to obtain
== END ==
PROVIDERS: PCP Internal Medicine Adolescent Medicine; Visit Provider Anesthesiology
DX: M51.16 Intervertebral disc disorders with radiculopathy, lumbar region (principal); Z98.890 Other specified postprocedural states
CPT/HCPCS: 36415; 80053; 80061; 84443; 85025; 99213

== ENCOUNTER → 2019-07-25 10:44 | Outpatient (CLI) | payer MEDICARE, OTHER, SELFPAY | PROVIDERS: Visit Provider Nurse Practitioner Family | DX: E03.9 Hypothyroidism, unspecified (principal) | CPT/HCPCS: 36415; 84443 ==

== ENCOUNTER → 2019-09-30 08:31 | Outpatient (CLI) | payer MEDICARE, OTHER, SELFPAY ==
[2019-09-30 09:25] LABS: Basophils % 0.4 % (0.1-2.0); Eosinophils # 0.1 K/mm3 (0.0-0.4); Eosinophils % 1.9 % (0.1-12.0); Hematocrit 38.6 % (37.0-47.0); Hemoglobin 12.3 g/dL (12.2-16.2); Lymphocytes # 1.8 K/mm3 (0.7-4.5); Lymphocytes % 42.1 % (10-50); Mean Corpuscular HGB Conc 31.8 g/dL (31.8-35.4); Mean Corpuscular Hemoglobin 29.9 pg (27.0-31.2); Mean Corpuscular Volume 94.1 fl (81-99); Mean Platelet Volume 7.6 fl (7.4-10.4); Monocytes # 0.3 K/mm3 (0.1-1.0); Monocytes % 6.3 % (1.7-9.3); Neutrophils # 2.1 K/mm3 (1.8-7.8); Neutrophils % 49.3 % (37.0-80.0); Platelet Count 352 K/mm3 (142-424); Red Cell Distribution Width 14.6 % (11.5-17.5); White Blood Count 4.3 K/mm3 (4.8-10.8)
[2019-09-30 10:43] LABS: Chloride 100 mmol/L (98-107); Potassium 4.7 mmoL/L (3.5-5.1); Sodium 134 mmol/L (136-145)
[2019-09-30 10:46] LABS: Alanine Aminotransferase 16 U/L (12-78); Albumin Level 4.2 g/dl (3.5-5.0); Albumin/Globulin Ratio 1.8 (1.1-1.8); Alkaline Phosphatase 65 U/L (38-126); Anion Gap 12.7 mEq/L (5-15); Aspartate Amino Transferase 28 U/L (14-36); Bilirubin,Total 0.4 mg/dl (0.2-1.3); Blood Urea Nitrogen 16 mg/dl (7-17); Calcium 9.5 mg/dl (8.4-10.2); Carbon Dioxide 26 mmol/L (22.0-30.0); Cholesterol 209 mg/dl (140-200); Estimated Glomerular Filt Rate 69 ml/min (>60); GFR (African American) 83 ML/MIN (>60); Globulin 2.3 g/dL (1.3-3.2); Glucose 79 mg/dl (74-100); Total Protein,Serum 6.5 g/dl (6.3-8.2); Triglycerides 90 mg/dl (30-150); VLDL Cholesterol 18 mg/dL (0-40)
[2019-09-30 10:47] LABS: Chol/HDL Ratio 2.2 (1-3.5); HDL Cholesterol 97 mg/dl (40-60)
[2019-09-30 10:58] LABS: Direct LDL Cholesterol 77.01 mg/dL (100-129)
[2019-09-30 11:18] LABS: Thyroid Stimulating Hormone 1.86 uIU/mL (0.465-4.68)
[2019-10-01 20:43] LABS: Vitamin D 25 Hydroxy 58.3 ng/mL (30.0-100.0)
== END ==
PROVIDERS: Visit Provider Internal Medicine Adolescent Medicine
DX: E03.9 Hypothyroidism, unspecified (principal); E78.5 Hyperlipidemia, unspecified; M12.9 Arthropathy, unspecified
CPT/HCPCS: 36415; 80053; 80061; 82652; 84443; 85025

== ENCOUNTER → 2020-04-06 09:00 | Outpatient (CLI) | payer MEDICARE, OTHER, SELFPAY ==
[2020-04-06 10:29] LABS: Basophils % 0.4 % (0.1-2.0); Eosinophils # 0.1 K/mm3 (0.0-0.4); Eosinophils % 1.8 % (0.1-12.0); Hematocrit 39.6 % (37.0-47.0); Hemoglobin 13.5 g/dL (12.2-16.2); Lymphocytes # 1.9 K/mm3 (0.7-4.5); Lymphocytes % 38.8 % (10-50); Mean Corpuscular Hemoglobin 31.4 pg (27.0-31.2); Mean Corpuscular Volume 92.4 fl (81-99); Mean Platelet Volume 7.5 fl (7.4-10.4); Monocytes # 0.3 K/mm3 (0.1-1.0); Monocytes % 6.8 % (1.7-9.3); Neutrophils # 2.5 K/mm3 (1.8-7.8); Neutrophils % 52.2 % (37.0-80.0); Platelet Count 316 K/mm3 (142-424); Red Blood Count 4.29 M/mm3 (4.20-5.40); Red Cell Distribution Width 14.5 % (11.5-17.5); White Blood Count 4.8 K/mm3 (4.8-10.8)
[2020-04-06 11:10] LABS: Alanine Aminotransferase 13 U/L (12-78); Albumin Level 4.6 g/dl (3.5-5.0); Albumin/Globulin Ratio 1.8 (1.1-1.8); Alkaline Phosphatase 99 U/L (38-126); Aspartate Amino Transferase 30 U/L (14-36); Bilirubin,Total 0.6 mg/dl (0.2-1.3); Blood Urea Nitrogen 18 mg/dl (7-17); Calcium 9.9 mg/dl (8.4-10.2); Carbon Dioxide 26 mmol/L (22.0-30.0); Chloride 103 mmol/L (98-107); Chol/HDL Ratio 2.1 (1-3.5); Cholesterol 216 mg/dl (140-200); Estimated Glomerular Filt Rate 69 ml/min (>60); GFR (African American) 83 ML/MIN (>60); Globulin 2.6 g/dL (1.3-3.2); Glucose 81 mg/dl (74-100); HDL Cholesterol 102 mg/dl (40-60); Sodium 138 mmol/L (136-145); Total Protein,Serum 7.2 g/dl (6.3-8.2); Triglycerides 127 mg/dl (30-150); VLDL Cholesterol 25 mg/dL (0-40)
[2020-04-06 11:21] LABS: Direct LDL Cholesterol 75.28 mg/dL (100-129)
[2020-04-06 11:28] LABS: 25-OH Vitamin D, Total 55.7 ng/mL (30-100)
[2020-04-06 11:43] LABS: Thyroid Stimulating Hormone 0.94 uIU/mL (0.465-4.68)
== END ==
PROVIDERS: Visit Provider Internal Medicine Adolescent Medicine
DX: E03.9 Hypothyroidism, unspecified (principal); E78.5 Hyperlipidemia, unspecified; M15.9 Polyosteoarthritis, unspecified
CPT/HCPCS: 36415; 80053; 80061; 82306; 84443; 85025

== ENCOUNTER → 2020-10-11 08:48 | Outpatient (CLI) | payer MEDICARE, OTHER, SELFPAY ==
[2020-10-11 10:28] LABS: Basophils % 0.6 % (0.1-2.0); Eosinophils # 0.1 K/mm3 (0.0-0.4); Eosinophils % 1.9 % (0.1-12.0); Hematocrit 40.9 % (37.0-47.0); Hemoglobin 13.1 g/dL (12.2-16.2); Lymphocytes # 2.6 K/mm3 (0.7-4.5); Lymphocytes % 49.9 % (10-50); Mean Corpuscular HGB Conc 31.9 g/dL (31.8-35.4); Mean Corpuscular Hemoglobin 30.2 pg (27.0-31.2); Mean Corpuscular Volume 94.7 fl (81-99); Mean Platelet Volume 7.4 fl (7.4-10.4); Monocytes # 0.3 K/mm3 (0.1-1.0); Monocytes % 5.6 % (1.7-9.3); Neutrophils # 2.1 K/mm3 (1.8-7.8); Neutrophils % 41.9 % (37.0-80.0); Platelet Count 377 K/mm3 (142-424); Red Blood Count 4.32 M/mm3 (4.20-5.40); Red Cell Distribution Width 14.2 % (11.5-17.5); White Blood Count 5.1 K/mm3 (4.8-10.8)
[2020-10-11 11:04] LABS: Chloride 104 mmol/L (98-107); Potassium 5.3 mmoL/L (3.5-5.1); Sodium 138 mmol/L (136-145)
[2020-10-11 11:07] LABS: Alanine Aminotransferase 13 U/L (12-78); Albumin Level 4.7 g/dl (3.5-5.0); Albumin/Globulin Ratio 1.6 (1.1-1.8); Alkaline Phosphatase 97 U/L (38-126); Anion Gap 11.3 mEq/L (5-15); Aspartate Amino Transferase 28 U/L (14-36); Bilirubin,Total 0.5 mg/dl (0.2-1.3); Blood Urea Nitrogen 18 mg/dl (7-17); Calcium 10.1 mg/dl (8.4-10.2); Carbon Dioxide 28 mmol/L (22.0-30.0); Cholesterol 226 mg/dl (140-200); Estimated Glomerular Filt Rate 68 ml/min (>60); GFR (African American) 83 ML/MIN (>60); Globulin 2.9 g/dL (1.3-3.2); Glucose 85 mg/dl (74-100); Total Protein,Serum 7.6 g/dl (6.3-8.2); Triglycerides 136 mg/dl (30-150); VLDL Cholesterol 27 mg/dL (0-40)
[2020-10-11 11:08] LABS: Chol/HDL Ratio 2.4 (1-3.5); HDL Cholesterol 95 mg/dl (40-60)
[2020-10-11 11:19] LABS: Direct LDL Cholesterol 72.48 mg/dL (100-129)
[2020-10-11 11:37] LABS: Thyroid Stimulating Hormone 1.36 uIU/mL (0.465-4.68)
== END ==
PROVIDERS: Visit Provider Internal Medicine Adolescent Medicine
DX: E03.9 Hypothyroidism, unspecified (principal); E78.5 Hyperlipidemia, unspecified; M12.9 Arthropathy, unspecified
CPT/HCPCS: 36415; 80053; 80061; 84443; 85025

== ENCOUNTER 2020-12-15 17:00 | Emergency (ER) | payer MEDICARE, OTHER, SELFPAY ==
[2020-12-15] VITALS (7 sets, daily range): BP systolic 121–192; BP diastolic 75–95; PULSE 71–89; RESP 16–22; TEMP 36.8; O2SAT 93–98; BMI 27.4
--- NOTE | 2020-12-15 17:09 | XR_ITS ---
PROCEDURE INFORMATION: Exam: XR Left Hip Exam date and time: 12/15/2020 5:09 PM Age: 85 years old Clinical indication: Injury or trauma; Fall; Blunt trauma (contusions or hematomas); Left; Hip; Additional info: Fall, pain TECHNIQUE: Imaging protocol: XR Left hip. Views: 2 or 3 views hip with pelvis when performed. COMPARISON: ABDPELW CT ABD PELVIS W/ CONTRAST 03/19/2015 1:25 PM FINDINGS: Bones/joints: Intertrochanteric fracture of the left hip is present with slight varus angulation. Degenerative changes of the lower lumbar spine. Soft tissues: Soft tissue swelling is present on the left. IMPRESSION: 1. Intertrochanteric fracture of the left hip is present with slight varus angulation. 2. Soft tissue swelling is present on the left.
--- NOTE | 2020-12-15 17:09 | HMH.EDGENADL ---
ED Disposition Clinical Impression: Intertrochanteric fracture of left femur Qualifiers: Encounter type: initial encounter Fracture type: closed Fracture alignment: nondisplaced Qualified Code(s): S72.145A - Nondisplaced intertrochanteric fracture of left femur, initial encounter for closed fracture Fall Qualifiers: Encounter type: initial encounter Qualified Code(s): W19.XXXA - Unspecified fall, initial encounter Disposition: Xfer Short-Term Hosp Condition on Discharge: Good Referrals: Himanshu Escobar MD [Primary Care Provider] - 7-14 days Time of Disposition: 18:11 - Critical Care Critical Care Time: No Attestation: On 12/15/20, the high probability of a clinically significant, sudden or life threatening deterioration of the following system(s) required my full and direct attention, intervention and personal management. The time I documented below is in addition to time spent performing reported procedures but includes the following listed in this critical care notation. Medical Decision Making - Medical Records Medical records reviewed: Yes: I reviewed the patient's medical records. - Kade Inquiry Pt receiving controlled substance: No Vital Signs: 12/15/20 17:05 Temperature 98.3 F Temperature Source Oral Pulse Rate [Left] 89 Respiratory Rate 20 Blood Pressure [Right Arm] 175/84 H Blood Pressure Mean [Right Arm] 114 Blood Pressure Source [Right Arm] Automatic Cuff Blood Pressure Position [Right Arm] Supine 02 Sat by Pulse Oximetry 96 Oxygen Delivery Method Room Air Orders (Tests/Meds): ED MEDICATIONS Discontinued Medications Generic Name Dose Route Start Last Admin Trade Name Freq PRN Reason Stop Dose Admin Hydromorphone HCl 0.5 mg 12/15/20 17:50 12/15/20 17:57 Hydromorphone 2mg/Ml Syringe IV 12/15/20 17:51 0.5 mg ONCE ONE Administration Hydromorphone HCl 0.5 mg 12/15/20 18:00 12/15/20 18:01 Hydromorphone 2mg/Ml Syringe IV 12/15/20 18:01 0.5 mg ONCE ONE Administration Morphine Sulfate 4 mg 12/15/20 17:23 12/15/20 17:03 Morphine 4mg/Ml Syringe IV 12/15/20 17:24 4 mg ONCE ONE Administration Ondansetron HCl 4 mg 12/15/20 17:23 12/15/20 17:03 Ondansetron 4mg/2ml Vial IV 12/15/20 17:24 4 mg ONCE ONE Administration ORDERS Category Date Time Status Basic Metabolic Panel Stat Lab 12/15/20 17:31 Ordered Complete Blood Count Auto Diff Stat Lab 12/15/20 17:31 Ordered - Radiology Data #1 Image(s): Hip Image Reviewed: Yes I reviewed the patient's radiology image Preliminary Findings: Abnormal Intertrochanteric fracture - ECG Data Tracing #1 Normal sinus normal sinus rhythm, 84 bpm, no ST elevation or depression, no ectopy, borderline QT ECG initial impression date: 12/15/20 ECG initial impression time: 18:10 Medical Decision Narrative: 85yo F evaluated after a fall. Patient is in distress secondary to pain. She denies injury other than her left hip. Patient would like to go to [facility] for orthopedic care. Routine blood work and EKG have been ordered for preoperative expedience. Radiologist over read confirms trochanteric left hip fracture. Case discussed with Dr. Marcelino, orthopedist at [facility], and he agrees to evaluate the patient. Dr. Bermudez, hospitalist, at [facility] accepts the patient for transfer. General Adult HPI - General Stated complaint: fall Time Seen by Provider: 12/15/20 17:09 Mode of Arrival: EMS - History of Present Illness HPI narrative: 85yo F with past medical history significant for hyperlipidemia, muscle spasm presents the emergency department for left hip pain after fall. Patient was stepping out of her house when she missed stepped and fell directly on her left hip. She denies any other pain at this time. She denies head strike or LOC. Her only complaint is severe left hip pain. She denies any chest pain, shortness of breath, sensation that her heart was beating too fa
--- NOTE | 2020-12-15 17:31 | ECG_ITS ---
APPROVED REPORT Exam: Resting ECG HR:82 bpm ECG Measurements Heart Rate 82 AXES GA 166 P 74 QRSd 88 QRS -1 QT 392 T 76 QTc 457 Conclusion Normal sinus rhythm Normal ECG Electronically signed by : Himanshu Escobar, 12/16/2020 07:08:50
--- NOTE | 2020-12-15 17:35 | PC.NURSE ---
placed call to [facility] per pt request for ortho
--- NOTE | 2020-12-15 17:53 | PC.NURSE ---
Dr Johnston spoke to Dr Ryland diaz, he accepted pt. Dr Bermudez hospitalist is to call back.
--- NOTE | 2020-12-15 17:57 | PC.NURSE ---
Dr Johnston speaking with hospitalist
--- NOTE | 2020-12-15 18:30 | PC.NURSE ---
report called to [facility] Chadwick Stout RN
[2020-12-15 18:44] LABS: Basophils % 0.3 % (0.1-2.0); Eosinophils # 0.1 K/mm3 (0.0-0.4); Eosinophils % 0.5 % (0.1-12.0); Hematocrit 35.6 % (37.0-47.0); Hemoglobin 11.7 g/dL (12.2-16.2); Lymphocytes # 1.6 K/mm3 (0.7-4.5); Lymphocytes % 14.8 % (10-50); Mean Corpuscular HGB Conc 32.9 g/dL (31.8-35.4); Mean Corpuscular Hemoglobin 29.6 pg (27.0-31.2); Mean Corpuscular Volume 89.8 fl (81-99); Mean Platelet Volume 7.5 fl (7.4-10.4); Monocytes # 0.5 K/mm3 (0.1-1.0); Monocytes % 4.9 % (1.7-9.3); Neutrophils # 8.7 K/mm3 (1.8-7.8); Neutrophils % 79.4 % (37.0-80.0); Platelet Count 281 K/mm3 (142-424); Red Blood Count 3.96 M/mm3 (4.20-5.40); Red Cell Distribution Width 13.9 % (11.5-17.5); White Blood Count 10.9 K/mm3 (4.8-10.8)
[2020-12-15 18:51] LABS: Blood Urea Nitrogen 19 mg/dl (7-17); Calcium 8.7 mg/dl (8.4-10.2); Carbon Dioxide 23 mmol/L (22.0-30.0); Chloride 103 mmol/L (98-107); Creatinine Clearance Estimated 45 mL/min (50-200); Estimated Glomerular Filt Rate 60 ml/min (>60); GFR (African American) 72 ML/MIN (>60); Glucose 108 mg/dl (74-100); Sodium 133 mmol/L (136-145)
--- NOTE | 2020-12-15 19:01 | PC.NURSE ---
pt and son updated on plan of care
--- NOTE | 2020-12-15 19:54 | PC.NURSE ---
EMS here to transport
== END 2020-12-15 20:09 | disposition short-term general hospital (02) ==
PROVIDERS: Emergency Provider Family Medicine; PCP Internal Medicine Adolescent Medicine
DX: S72.142A Displaced intertrochanteric fracture of left femur, initial encounter for closed fracture (principal); W01.0XXA Fall on same level from slipping, tripping and stumbling without subsequent striking against object, initial encounter; Y92.019 Unspecified place in single-family (private) house as the place of occurrence of the external cause; K21.9 Gastro-esophageal reflux disease without esophagitis; E78.5 Hyperlipidemia, unspecified; I10 Essential (primary) hypertension; E03.9 Hypothyroidism, unspecified
CPT/HCPCS: 73502; 80048; 85025; 93005; 96374; 99282; J2405

== ENCOUNTER 2021-01-20 16:14 | Observation (INO) | payer MEDICARE, OTHER, SELFPAY ==
[2021-01-20 16:14] VITALS: BP 147/69; PULSE 92; RESP 20; TEMP 39.5; O2SAT 93; BMI 26.2
--- NOTE | 2021-01-20 16:17 | HMH.EDGENADL ---
ED Disposition Clinical Impression: Pyelonephritis Sepsis Qualifiers: Sepsis type: sepsis due to unspecified organism Sepsis acute organ dysfunction status: without acute organ dysfunction Qualified Code(s): A41.9 - Sepsis, unspecified organism Disposition: Admitted as Observation Condition on Discharge: Fair Referrals: Himanshu Escobar MD [Primary Care Provider] - - Critical Care Critical Care Time: No Attestation: On , the high probability of a clinically significant, sudden or life threatening deterioration of the following system(s) required my full and direct attention, intervention and personal management. The time I documented below is in addition to time spent performing reported procedures but includes the following listed in this critical care notation. Medical Decision Making - Kade Inquiry Pt receiving controlled substance: No Vital Signs: 01/20/21 16:14 Temperature 103.1 F H Temperature Source Oral Pulse Rate [Left Radial] 92 H Respiratory Rate 20 Blood Pressure [Right Arm] 147/69 H Blood Pressure Mean [Right Arm] 95 Blood Pressure Source [Right Arm] Automatic Cuff Blood Pressure Position [Right Arm] Sitting 02 Sat by Pulse Oximetry 93 L Oxygen Delivery Method Room Air - Lab Data Lab Results 01/20/21 16:15: WBC 21.9 H*, RBC 3.83 L, Hgb 11.0 L, Hct 33.1 L, MCV 86.4, MCH 28.7, MCHC 33.2, RDW 16.1, Plt Count 420, MPV 7.7, Neut % (Auto) 87.9 H, Lymph % (Auto) 8.1 L, [place] % (Auto) 3.7, Eos % (Auto) 0.1, Baso % (Auto) 0.2, Neut # (Auto) 19.2 H, Lymph # (Auto) 1.8, [place] # (Auto) 0.8, Eos # (Auto) 0.0, Baso # (Auto) 0.0, Total Counted 100, Neutrophils % (Manual) 83 H, Lymphocytes % (Manual) 13, Monocytes % (Manual) 4, Platelet Estimate Normal, RBC Morphology Normal 01/20/21 16:15: Sodium 130 L, Potassium 3.2 L, Chloride 96 L, Carbon Dioxide 22, Anion Gap 15.2 H, BUN 11, Creatinine 0.70, Estimated Creat Clear 43, Estimated GFR 80, Est GFR ( Amer) 96, Glucose 127 H, Calcium 8.6, Total Bilirubin 0.8, AST 19, ALT 10 L, Alkaline Phosphatase 180 H, Total Protein 7.2, Albumin 4.1, Globulin 3.1, Albumin/Globulin Ratio 1.3 01/20/21 16:15: Lactate 0.9 01/20/21 16:35: Urine Color Yellow, Urine Appearance Cloudy, Urine pH 6.0, Ur Specific [place] 1.020, Urine Protein 2+, Urine Glucose (UA) Negative, Urine Ketones 1+, Urine Blood Trace-i, Urine Nitrate Positive, Urine Bilirubin Negative, Urine Urobilinogen 1.0, Ur Leukocyte Esterase 1+ A, Urine RBC Occasional, Urine WBC 20-50, Ur Squamous Epith Cells 3-5, Urine Bacteria 3+ 01/20/21 16:41: SARS-CoV-2 (PCR) Not detected, Influenza A Untype (PCR) Not detected, Influenza Type B (PCR) Not detected Result diagrams: 01/20/21 16:15 01/20/21 16:15 Orders (Tests/Meds): ED MEDICATIONS Generic Name Dose Route Start Last Admin Trade Name Freq PRN Reason Stop Dose Admin Ceftriaxone Sodium 1 gm/ 50 mls @ 100 mls/hr 01/20/21 17:15 Sodium Chloride IV 02/03/21 17:14 Q24H [facility] Protocol ORDERS Category Date Time Status XR chest portable Stat Exams 01/20/21 16:32 Taken Blood Culture Stat Micro 01/20/21 16:30 Received Urine Culture Stat Micro 01/20/21 16:35 Received - Radiology Data #1 Image(s): Chest Image Reviewed: Yes I reviewed the patient's radiology image Preliminary Findings: Normal/NAD - Physician Consults Physician Consulted: Beatrice Time: 16:50 Reason -: Admission Comment/Response: Agrees to admit the patient to the hospital. We discussed the patient's clinical information, including history, exam, laboratory and radiology results and ED course. Per hospital procedure, I will write temporary bridge inpatient orders on the patient. Specific orders requested by the admitting physician: Coleman General Adult HPI - General Stated complaint: Possible CVA Time Seen by Provider: 01/20/21 16:17 - History of Present Illness HPI narrative: Brought in by ambulance. Family was concerned that the patient was having a str
--- NOTE | 2021-01-20 16:32 | XR_ITS ---
PROCEDURE INFORMATION: Exam: XR Chest Exam date and time: 01/20/2021 4:32 PM Age: 85 years old Clinical indication: Fever TECHNIQUE: Imaging protocol: XR of the chest. Views: 1 view. COMPARISON: CR XR CHEST 2V 05/03/2019 6:44 PM FINDINGS: Airway: The airways are patent. Lungs: COPD/emphysema. No acute interstitial or airspace disease. There are multiple punctate pulmonary parenchymal calcifications, consistent with remote granulomatous organism exposure. Pleural spaces: Unremarkable. No pleural effusion. No pneumothorax. Heart/Mediastinum: The heart is mildly enlarged. Vasculature: Calcified aortic knob. Bones/joints: No acute skeletal abnormality or aggressive osseous lesion. IMPRESSION: Negative for acute thoracic pathology.
[2021-01-20 16:40] LABS: Microscopic, Urine URINE MICROSCOPIC (MICROSCOPIC)
[2021-01-20 16:40] LABS: Basophils % 0.2 % (0.1-2.0); Eosinophils % 0.1 % (0.1-12.0); Hematocrit 33.1 % (37.0-47.0); Lymphocytes # 1.8 K/mm3 (0.7-4.5); Lymphocytes % 8.1 % (10-50); Mean Corpuscular HGB Conc 33.2 g/dL (31.8-35.4); Mean Corpuscular Hemoglobin 28.7 pg (27.0-31.2); Mean Corpuscular Volume 86.4 fl (81-99); Mean Platelet Volume 7.7 fl (7.4-10.4); Monocytes # 0.8 K/mm3 (0.1-1.0); Monocytes % 3.7 % (1.7-9.3); Neutrophils # 19.2 K/mm3 (1.8-7.8); Neutrophils % 87.9 % (37.0-80.0); Platelet Count 420 K/mm3 (142-424); Red Blood Count 3.83 M/mm3 (4.20-5.40); Red Cell Distribution Width 16.1 % (11.5-17.5); White Blood Count 21.9 K/mm3 (4.8-10.8)
[2021-01-20 16:42] LABS: MANUAL DIFFERENTIAL MANUAL DIFFERENTIAL (MANUAL DIFF)
[2021-01-20 16:44] LABS: Appearance,Urine CLOUDY (Clear); Blood, Urine TRACE-I (Negative); Color,Urine YELLOW (Yellow); Glucose,Urine (UA) Negative (Negative); Ketones,Urine 1+ (Negative); Leukocyte Esterase,Urine 1+ (Negative); Nitrate,Urine POSITIVE (Negative); Protein,Urine 2+ (Negative)
[2021-01-20 16:46] LABS: Coronavirus 19, PCR Not Detected (NotDetected); Influenza A, PCR Not Detected (NotDetected); Influenza B, PCR Not Detected (NotDetected)
[2021-01-20 16:46] LABS: Bilirubin,Urine Negative (Negative)
[2021-01-20 16:50] LABS: Bacteria,Urine 3+ /lpf; RBC,Urine Occasional #/hpf (0-3); WBC,Urine 20-50 #/hpf (0-3)
[2021-01-20 16:51] LABS: Alanine Aminotransferase 10 U/L (12-78); Albumin Level 4.1 g/dl (3.5-5.0); Albumin/Globulin Ratio 1.3 (1.1-1.8); Alkaline Phosphatase 180 U/L (38-126); Anion Gap 15.2 mEq/L (5-15); Aspartate Amino Transferase 19 U/L (14-36); Bilirubin,Total 0.8 mg/dl (0.2-1.3); Blood Urea Nitrogen 11 mg/dl (7-17); Calcium 8.6 mg/dl (8.4-10.2); Carbon Dioxide 22 mmol/L (22.0-30.0); Chloride 96 mmol/L (98-107); Creatinine Clearance Estimated 43 mL/min (50-200); Estimated Glomerular Filt Rate 80 ml/min (>60); GFR (African American) 96 ML/MIN (>60); Globulin 3.1 g/dL (1.3-3.2); Glucose 127 mg/dl (74-100); Potassium 3.2 mmoL/L (3.5-5.1); Sodium 130 mmol/L (136-145); Total Protein,Serum 7.2 g/dl (6.3-8.2)
[2021-01-20 16:52] LABS: Lactic Acid 0.9 mmol/L (0.7-2.1); Lymphocytes % 13 % (10-50); Monocytes % 4 % (2-9); Neutrophils % 83 % (42-76); Platelet Estimate Normal; RBC Morphology Normal; Total Cells Counted 100
[2021-01-20 17:00] VITALS: BP 152/76; PULSE 89; RESP 18; O2SAT 95
[2021-01-20 17:30] VITALS: BP 153/76; PULSE 87; RESP 17
--- NOTE | 2021-01-20 17:34 | PC.NURSE ---
Report called Ashtyn ALCAZAR
[2021-01-20 17:40] VITALS: BP 153/75; PULSE 85; RESP 19; TEMP 36.9; O2SAT 95; BMI 25.6
[2021-01-20 17:51] VITALS: BP 153/76; PULSE 87; RESP 20; TEMP 39.5; O2SAT 95
[2021-01-20 19:45] VITALS: BP 140/62; PULSE 75; RESP 16; TEMP 36.6; O2SAT 93
[2021-01-21] VITALS (7 sets, daily range): BP systolic 138–165; BP diastolic 64–83; PULSE 75–102; RESP 16–18; TEMP 36.8–37.4; O2SAT 93–98
--- NOTE | 2021-01-21 02:52 | PC.NURSE ---
shift summary pt is alert and oriented X4. pts lung sounds are clear with sats maintained 93-98% on room air. pt has been able to ambulate with a walker and stanby assist to the bathroom to void, urine is clear and yellow in color. pt complained of a headache once during the shift which was relieved with Tylenol. pt denies any nausea, vomiting, or diarrhea. no acute changes noted will continue to monitor.
--- NOTE | 2021-01-21 07:29 | P.CONPHA_ITS ---
[facility] Pharmacy VTE Monitoring - Patient Demographics Admission date: 01/20/21 Report Date: 01/21/21 Time: 07:29 Allergies/Adverse Reactions: Patient Allergies acetaminophen [From Tylenol-Codeine #3] Allergy (Verified 05/11/19 07:34) Unknown allergy reaction codeine [From Tylenol-Codeine #3] Allergy (Verified 05/11/19 07:34) Unknown allergy reaction cyclobenzaprine Allergy (Verified 05/11/19 07:34) Unknown allergy reaction etodolac Allergy (Verified 05/11/19 07:34) Unknown allergy reaction lisinopril Allergy (Verified 05/11/19 07:34) Rash metronidazole Allergy (Verified 05/11/19 07:34) Unknown allergy reaction tramadol Allergy (Verified 05/11/19 07:34) Unknown allergy reaction niacin Adverse Reaction (Verified 05/11/19 07:34) Unknown allergy reaction Height: 1.57 m Weight: 63.588 kg Patient Problems: Current Active Problems Sepsis (Acute) Pyelonephritis (Acute) - VTE Risk Labs: VTE Related Lab Results Hgb 11.0 g/dL (12.2-16.2) L 01/20/21 16:15 Hct 33.1 % (37.0-47.0) L 01/20/21 16:15 Plt Count 420 K/mm3 (142-424) 01/20/21 16:15 BUN 11 mg/dl (7-17) 01/20/21 16:15 Creatinine 0.70 mg/dl (0.52-1.04) 01/20/21 16:15 Estimated Creat Clear 43 mL/min (50-200) 01/20/21 16:15 VTE Score: 1 - Prophylaxis VTE Prophylaxis Ordered?: Yes Types of VTE Prophylaxis: TEDS Knee High Location of Applied Device: Bilateral Lower Extremeties
--- NOTE | 2021-01-21 08:11 | HMH.HP ---
*Admission Date: 01/20/21 *Chief complaint: Nausea/dysuria/urinary frequency *History of present illness: 85-year-old white female, enjoys very good functional status and good health until about 4 weeks ago when she fell and fractured her hip, repaired at [facility], transferred to [facility] where she spent several weeks and did have Millan catheter placed. She was discharged about 3 weeks ago but has had urinary frequency since that time, developed a fever, some lethargy, mental status change and was brought to the emergency department yesterday where she was found to be septic with high white count, tachycardia and evidence of urinary tract infection. Placed on ceftriaxone, fluids were given and she was admitted to the hospital. [facility] History I have reviewed the patient's past medical history: Yes Medical History: Reports:: Gastroesophageal Reflux Disease(GERD), Hyperlipidemia, Hypertension Denies:: Cancer, Diabetes Mellitus Type 1, Diabetes Mellitus Type 2, Internal Pacemaker, MRSA, Seizures *Have you ever received a pneumonia vaccine?: Yes *Have you received a flu vaccine this season?: Yes Other Medical History: Reports: Arthritis, Hypothyroidism, Thyroid Disease (THYROIDECTOMY). Denies: Blood Transfusion Reaction Laterality Cases: Right: Arthroscopy Hip, Bilateral: Cataract Other Surgeries: Yes: Appendectomy, Hysterectomy-Total, Thyroidectomy, Other (back). No: Pacemaker Amputation: No Fractures: No - *Social History Last grade of school completed: Advanced degree Smoking Status: Never smoker Alcohol Intake: never Substance Use Type: denies use *Occupational Status:: retired Housing: house Household Members: family *Travel in the last 8 weeks: None Family Hx:: Unable to obtain Review of Systems - Review of Systems Review of systems:: pertinent systems reviewed and negative unless documented below - *Neurologic Reports abnormal speech, Reports weakness (Generalized), Denies headache(s) Meds Home Medications Medication Instructions Recorded Confirmed Type Simvastatin 80 mg PO DAILY 04/05/18 01/20/21 History Cyclobenzaprine HCl 5 mg PO NEEDED PRN 01/20/21 01/20/21 History [Cyclobenzaprine 5mg Tab*] Escitalopram Oxalate 10 mg PO DAILY 01/20/21 01/20/21 History Levothyroxine Sodium [Levoxyl] 112 mcg PO DAILY 01/20/21 01/20/21 History Losartan Potassium [Cozaar 50mg 50 mg PO DAILY 01/20/21 01/20/21 History Tablets] Meloxicam 7.5 mg PO DAILY 01/20/21 01/20/21 History Metoprolol Tartrate [Lopressor 25 mg PO BID 01/20/21 01/20/21 History 25mg tablet] Omeprazole 40 mg PO DAILY 01/20/21 01/20/21 History Oxycodone HCl 5 mg PO DAILY PRN 01/20/21 01/20/21 History Saliva Substitute Combo No.9 1 dose PO QID 01/20/21 01/20/21 History [Biotene] hydrOXYzine HCL [Hydroxyzine HCl] 25 mg PO TID 01/20/21 01/20/21 History Allergies Allergy/AdvReac Type Severity Reaction Status Date / Time acetaminophen Allergy Unknown Verified 05/11/19 07:34 [From Tylenol-Codeine #3] allergy reaction codeine Allergy Unknown Verified 05/11/19 07:34 [From Tylenol-Codeine #3] allergy reaction cyclobenzaprine Allergy Unknown Verified 05/11/19 07:34 allergy reaction etodolac Allergy Unknown Verified 05/11/19 07:34 allergy reaction lisinopril Allergy Rash Verified 05/11/19 07:34 metronidazole Allergy Unknown Verified 05/11/19 07:34 allergy reaction tramadol Allergy Unknown Verified 05/11/19 07:34 allergy reaction niacin AdvReac Unknown Verified 05/11/19 07:34 allergy reaction Exam Vital signs and Labs for Last 24 Hours: Temp Pulse Resp BP Pulse Ox 98.9 F 95 H 16 142/65 H 95 01/21/21 07:57 01/21/21 07:57 01/21/21 07:57 01/21/21 07:57 01/21/21 07:57 Laboratory Results - last 24 hr 01/20/21 16:15: WBC 21.9 H*, RBC 3.83 L, Hgb 11.0 L, Hct 33.1 L, MCV 86.4, MCH 28.7, MCHC 33.2, RDW 16.1, Plt Count 420, MPV 7.7, Ne
--- NOTE | 2021-01-21 10:14 | HMH.PHAINT ---
COMPLETED MEDICATION HISTORY ON PATIENT USING EXTERNAL PHARMACY FILL RECORD. UPDATED OXYCODONE TO REFLECT PHARMACY FILL OF 1.5 TAB BID PRN AND ADDED FLOMAX 0.4 MG QHS PER PHARMACY FILL
[2021-01-21 11:22] LABS: Basophils % 0.1 % (0.1-2.0); Eosinophils # 0.1 K/mm3 (0.0-0.4); Eosinophils % 0.4 % (0.1-12.0); Hematocrit 30.3 % (37.0-47.0); Hemoglobin 10.2 g/dL (12.2-16.2); Lymphocytes # 1.8 K/mm3 (0.7-4.5); Lymphocytes % 9.1 % (10-50); Mean Corpuscular HGB Conc 33.9 g/dL (31.8-35.4); Mean Corpuscular Hemoglobin 29.2 pg (27.0-31.2); Mean Corpuscular Volume 86.1 fl (81-99); Mean Platelet Volume 7.7 fl (7.4-10.4); Monocytes # 0.8 K/mm3 (0.1-1.0); Monocytes % 3.9 % (1.7-9.3); Neutrophils # 17.4 K/mm3 (1.8-7.8); Neutrophils % 86.5 % (37.0-80.0); Platelet Count 372 K/mm3 (142-424); Red Blood Count 3.51 M/mm3 (4.20-5.40); Red Cell Distribution Width 16.1 % (11.5-17.5); White Blood Count 20.1 K/mm3 (4.8-10.8)
[2021-01-21 11:24] LABS: Chloride 99 mmol/L (98-107); Potassium 3.2 mmoL/L (3.5-5.1); Sodium 133 mmol/L (136-145)
[2021-01-21 11:26] LABS: MANUAL DIFFERENTIAL MANUAL DIFFERENTIAL (MANUAL DIFF)
[2021-01-21 11:27] LABS: Anion Gap 13.2 mEq/L (5-15); Blood Urea Nitrogen 10 mg/dl (7-17); Calcium 8.3 mg/dl (8.4-10.2); Carbon Dioxide 24 mmol/L (22.0-30.0); Creatinine Clearance Estimated 42 mL/min (50-200); Estimated Glomerular Filt Rate 95 ml/min (>60); GFR (African American) 115 ML/MIN (>60); Glucose 96 mg/dl (74-100)
[2021-01-21 12:06] LABS: Eosinophils % 1 % (0-3); Lymphocytes % 6 % (10-50); Monocytes % 6 % (2-9); Neutrophils % 87 % (42-76); Platelet Estimate Normal; RBC Morphology Normal; Total Cells Counted 100
--- NOTE | 2021-01-21 15:06 | PC.NURSE ---
PT IS RESTING IN BED. ALERT AND ORIENTED X4. AMBULATES TO THE BATHROOM WITH 1 ASSIST AND WALKER. PT CALLED OUT AT 1215 AND STATED SHE WAS FREEZING. TEMP WAS 101.5 ORAL. RECEIVED TYLENOL. TEMP RECHECKED AT 1445 99.5 ORAL. LUNG SOUNDS CLEAR. ABDOMEN SOFT/NON TENDER WITH ACTIVE BOWEL SOUNDS. NO SWELLING NOTED TO BLE. SCARS NOTED TO THE LEFT HIP FROM SURGERY PT HAD IN NOVEMBER. APPETITE HAS BEEN POOR BUT PT HAS BEEN DRINKING BREEZE. WILL CONTINUE TO MONITOR.
--- NOTE | 2021-01-21 22:37 | ECG_ITS ---
APPROVED REPORT Exam: Resting ECG HR:72 bpm ECG Measurements Heart Rate 72 AXES AR 158 P 29 QRSd 88 QRS -7 QT 438 T 19 QTc 479 Conclusion Normal sinus rhythm Normal ECG Electronically signed by : Himanshu Escobar, 01/22/2021 21:18:24
[2021-01-21 23:42] LABS: Troponin I < 0.01 ng/ml (0.00-0.034)
[2021-01-22] VITALS: BP 167/73; PULSE 82; RESP 18; TEMP 37; O2SAT 94
--- NOTE | 2021-01-22 00:13 | HMH.DCSUM ---
General - General Admission date:: 01/20/21 Discharge date: 01/22/21 HPI HPI: 85-year-old white female, enjoys very good functional status and good health until about 4 weeks ago when she fell and fractured her hip, repaired at [facility], transferred to [facility] where she spent several weeks and did have Millan catheter placed. She was discharged about 3 weeks ago but has had urinary frequency since that time, developed a fever, some lethargy, mental status change and was brought to the emergency department yesterday where she was found to be septic with high white count, tachycardia and evidence of urinary tract infection. Placed on ceftriaxone, fluids were given and she was admitted to the hospital. Hospital Course Hospital Course: 5-year-old female admitted for pyelonephritis. Culture growing gram-negative rods. Has shown significant improvement after initiating ceftriaxone on admission. White cell count decreasing on labs on day of discharge. No specific speciation however given response to ceftriaxone, will transition to Omnicef for total of 10 days of antibiotic therapy. Will complete 7 additional days in the outpatient setting twice a day 300 mg cefdinir. Tolerating good p.o. intake. Voiding independently. Afebrile for over 24 hours. Patient examined on day of discharge. Overall feeling better. No significant complaints today. Objective Vital signs: Temp Pulse Resp BP Pulse Ox 98.5 F 75 18 154/64 H 96 01/21/21 22:40 01/21/21 22:40 01/21/21 22:40 01/21/21 22:40 01/21/21 22:40 Narrative: - Constitutional no acute distress - *Routine HEENT Exam Head: Present: normocephalic Eye: Present: EOMI, PERRL ENT: Present: mucous membranes moist - *Routine Neck Exam Present: supple. Absent: lymphadenopathy - *Routine Respiratory Exam Present: CTA bilaterally - *Routine Cardiovascular Exam Present: RRR - *Routine Abdominal Exam Present: soft, normoactive bowel sounds. Absent: tenderness, CVA tenderness - *Routine Extremities Exam Absent: cyanosis, clubbing, edema - *Routine Skin Exam Present: warm. Absent: rash - *Routine Neurological Exam Present: alert, oriented X3 Results Labs on day of discharge: Labs from last 24 hours 01/21/21 01/21/21 01/21/21 23:05 11:00 11:00 WBC 20.1 H* RBC 3.51 L Hgb 10.2 L Hct 30.3 L MCV 86.1 MCH 29.2 MCHC 33.9 RDW 16.1 Plt Count 372 MPV 7.7 Neut % (Auto) 86.5 H Lymph % (Auto) 9.1 L [place] % (Auto) 3.9 Eos % (Auto) 0.4 Baso % (Auto) 0.1 Neut # (Auto) 17.4 H Lymph # (Auto) 1.8 [place] # (Auto) 0.8 Eos # (Auto) 0.1 Baso # (Auto) 0.0 Total Counted 100 Neutrophils % (Manual) 87 H Lymphocytes % (Manual) 6 L Monocytes % (Manual) 6 Eosinophils % (Manual) 1 Platelet Estimate Normal RBC Morphology Normal Sodium 133 L Potassium 3.2 L Chloride 99 Carbon Dioxide 24 Anion Gap 13.2 BUN 10 Creatinine 0.60 Estimated Creat Clear 42 Estimated GFR 95 Est GFR ( Amer) 115 Glucose 96 D Calcium 8.3 L Troponin I < 0.01 Urine Color Urine Appearance Urine pH Ur Specific [place] Urine Protein Urine Glucose (UA) Urine Ketones Urine Blood Urine Nitrate Urine Bilirubin Urine Urobilinogen Ur Leukocyte Esterase Urine RBC Urine WBC Ur Squamous Epith Cells Urine Bacteria 01/20/21 16:35 WBC RBC Hgb Hct MCV MCH MCHC RDW Plt Count MPV Neut % (Auto) Lymph % (Auto) [place] % (Auto) Eos % (Auto) Baso % (Auto) Neut # (Auto) Lymph # (Auto) [place] # (Auto) Eos # (Auto) Baso # (Auto) Total Counted Neutrophils % (Manual) Lymphocytes % (Manual) Monocytes % (Manual) Eosinophils % (Manual) Platelet Estimate RBC Morphology Sodium Potassium Chloride Carbon Dioxide Anion Gap BUN Creatinine Est
[2021-01-22 03:54] VITALS: BP 167/71; PULSE 78; RESP 16; TEMP 37; O2SAT 96
[2021-01-22 05:00] VITALS: BMI 27.1
--- NOTE | 2021-01-22 05:52 | PC.NURSE ---
Patient is alert and oriented. Patient had c/o of chest pain radiating to her back around 2240. Vital signs where stable, EKG was read by ER MD with no acute changes, oncall provider notified for additional orders. Troponin now and in the morning was ordered. 1st Troponin was negative. Patient was adjusted in bed and stated her pain was better. Patient had no additional complaint throughout the night. Patient is able to use the walker with a standby assist and does really well with ambulation.
[2021-01-22 07:04] LABS: Chloride 105 mmol/L (98-107); Sodium 137 mmol/L (136-145)
[2021-01-22 07:05] LABS: Basophils % 0.1 % (0.1-2.0); Eosinophils # 0.1 K/mm3 (0.0-0.4); Eosinophils % 0.8 % (0.1-12.0); Hematocrit 28.4 % (37.0-47.0); Hemoglobin 9.5 g/dL (12.2-16.2); Lymphocytes # 1.6 K/mm3 (0.7-4.5); Lymphocytes % 10.3 % (10-50); Mean Corpuscular HGB Conc 33.4 g/dL (31.8-35.4); Mean Corpuscular Hemoglobin 29.6 pg (27.0-31.2); Mean Corpuscular Volume 88.5 fl (81-99); Mean Platelet Volume 8.1 fl (7.4-10.4); Monocytes # 0.7 K/mm3 (0.1-1.0); Monocytes % 4.8 % (1.7-9.3); Neutrophils # 13.2 K/mm3 (1.8-7.8); Platelet Count 379 K/mm3 (142-424); Red Cell Distribution Width 16.1 % (11.5-17.5); White Blood Count 15.7 K/mm3 (4.8-10.8)
[2021-01-22 07:07] LABS: Blood Urea Nitrogen 5 mg/dl (7-17); Carbon Dioxide 23 mmol/L (22.0-30.0); Creatinine Clearance Estimated 44 mL/min (50-200); Estimated Glomerular Filt Rate 118 ml/min (>60); GFR (African American) 142 ML/MIN (>60); MANUAL DIFFERENTIAL MANUAL DIFFERENTIAL (MANUAL DIFF)
[2021-01-22 07:08] LABS: Calcium 8.3 mg/dl (8.4-10.2); Glucose 97 mg/dl (74-100)
[2021-01-22 07:51] LABS: Anisocytosis 1+; Hypochromasia 1+; Lymphocytes % 7 % (10-50); Monocytes % 4 % (2-9); Neutrophils % 89 % (42-76); Platelet Estimate Normal; Total Cells Counted 100
[2021-01-22 08:00] VITALS: BP 151/69; PULSE 79; RESP 18; TEMP 37.4; O2SAT 95
[2021-01-22 08:09] LABS: Troponin I < 0.01 ng/ml (0.00-0.034)
== END 2021-01-22 13:04 | disposition home or self-care (01) ==
LOC: ER 17:12 → 2ND 17:35
PROVIDERS: Family Medicine; Admitting Provider Internal Medicine Adolescent Medicine; Emergency Provider Emergency Medicine; PCP Internal Medicine Adolescent Medicine; Visit Provider Internal Medicine Adolescent Medicine
DX: A41.9 Sepsis, unspecified organism (principal); N12 Tubulo-interstitial nephritis, not specified as acute or chronic; K21.9 Gastro-esophageal reflux disease without esophagitis; E78.5 Hyperlipidemia, unspecified; E03.9 Hypothyroidism, unspecified; E78.00 Pure hypercholesterolemia, unspecified
CPT/HCPCS: 36415; 71045; 80048; 80053; 81001; 83605; 84484; 85007; 85025; 87040; 87077; 87086; 87088; 87186; 93005; 96374; 99284; G0378; U0003

== ENCOUNTER 2021-02-17 16:43 | Inpatient (IN) | payer MEDICARE, OTHER, SELFPAY ==
[2021-02-17] VITALS (15 sets, daily range): BP systolic 152–196; BP diastolic 71–91; PULSE 68–96; RESP 17–18; TEMP 36.7–36.9; O2SAT 84–99; BMI 24.5; BMI 24.9
--- NOTE | 2021-02-17 17:26 | XR_ITS ---
PROCEDURE INFORMATION: Exam: XR Chest Exam date and time: 02/17/21 05:26 PM Age: 85 years old Clinical indication: Cough TECHNIQUE: Imaging protocol: XR of the chest. Views: 1 view. COMPARISON: CR XR CHEST PORTABLE 01/20/21 04:40 PM FINDINGS: Lungs: Unremarkable. No consolidation. Pleural spaces: Unremarkable. No pleural effusion. No pneumothorax. Heart/Mediastinum: Unremarkable. No cardiomegaly. Bones/joints: Unremarkable. IMPRESSION: No acute findings.
--- NOTE | 2021-02-17 17:26 | CT_ITS ---
PROCEDURE INFORMATION: Exam: CT Head Without Contrast Exam date and time: 02/17/21 05:26 PM Age: 85 years old Clinical indication: Other: Weakness TECHNIQUE: Imaging protocol: Computed tomography of the head without contrast. Radiation optimization: All CT scans at this facility use at least one of these dose optimization techniques: automated exposure control; mA and/or kV adjustment per patient size (includes targeted exams where dose is matched to clinical indication); or iterative reconstruction. COMPARISON: No relevant prior studies available. FINDINGS: Brain: Mild small vessel ischemic changes with mild atrophy less than expected for age. No acute hemorrhage, mass effect, midline shift, or extra-axial fluid collection. Cerebral ventricles: No ventriculomegaly. Paranasal sinuses: Visualized sinuses are unremarkable. No fluid levels. Mastoid air cells: Visualized mastoid air cells are well aerated. Bones/joints: Unremarkable. No acute fracture. Soft tissues: Unremarkable. IMPRESSION: No acute intracranial abnormality.
--- NOTE | 2021-02-17 17:26 | ECG_ITS ---
APPROVED REPORT Exam: Resting ECG HR:80 bpm ECG Measurements Heart Rate 80 AXES HI 140 P 49 QRSd 78 QRS -27 QT 406 T 30 QTc 468 Conclusion Normal sinus rhythm Nonspecific ST abnormality Abnormal ECG Electronically signed by : Himanshu Escobar, 02/19/2021 17:03:21
--- NOTE | 2021-02-17 17:30 | HMH.EDDIZZ ---
ED Disposition Clinical Impression: Discoordination, Generalized weakness Cerebrovascular accident Qualifiers: CVA mechanism: unspecified Qualified Code(s): I63.9 - Cerebral infarction, unspecified Disposition: Admitted As Inpatient Condition on Discharge: Fair Referrals: Himanshu Escobar MD [Primary Care Provider] - - Critical Care Critical Care Time: No Attestation: On 02/17/21, the high probability of a clinically significant, sudden or life threatening deterioration of the following system(s) required my full and direct attention, intervention and personal management. The time I documented below is in addition to time spent performing reported procedures but includes the following listed in this critical care notation. Medical Decision Making - Medical Records Medical records reviewed: Yes: I reviewed the patient's medical records. - Kade Inquiry Pt receiving controlled substance: No Vital Signs: 02/17/21 16:45 02/17/21 17:02 02/17/21 17:15 Temperature 98.4 F Temperature Source Oral Pulse Rate 77 73 Pulse Rate [Right] 78 Respiratory Rate 18 Blood Pressure Blood Pressure [Right Arm] 196/74 H Blood Pressure Mean Blood Pressure Mean [Right Arm] 114 02 Sat by Pulse Oximetry 96 96 96 Oxygen Delivery Method Room Air 02/17/21 17:30 02/17/21 18:07 02/17/21 18:08 Temperature Temperature Source Pulse Rate 68 72 74 Pulse Rate [Right] Respiratory Rate Blood Pressure 181/80 H 152/91 H Blood Pressure [Right Arm] Blood Pressure Mean 113 116 Blood Pressure Mean [Right Arm] 02 Sat by Pulse Oximetry 96 91 L 96 Oxygen Delivery Method 02/17/21 18:19 02/17/21 18:30 Temperature Temperature Source Pulse Rate 69 Pulse Rate [Right] Respiratory Rate Blood Pressure 179/78 H Blood Pressure [Right Arm] Blood Pressure Mean 111 Blood Pressure Mean [Right Arm] 02 Sat by Pulse Oximetry 84 L 97 Oxygen Delivery Method - Lab Data Lab Results 02/17/21 18:00: WBC 8.1, RBC 4.12 L, Hgb 11.9 L, Hct 37.6, MCV 91.3, MCH 29.0, MCHC 31.7 L, RDW 17.6 H, Plt Count 302, MPV 7.6, Neut % (Auto) 60.6, Lymph % (Auto) 32.8, [place] % (Auto) 5.2, Eos % (Auto) 1.1, Baso % (Auto) 0.2, Neut # (Auto) 4.9, Lymph # (Auto) 2.7, [place] # (Auto) 0.4, Eos # (Auto) 0.1, Baso # (Auto) 0.0 02/17/21 18:00: PT 10.8, INR 0.91, APTT 22.2 L 02/17/21 18:00: Sodium 137, Potassium 4.3, Chloride 101, Carbon Dioxide 26, Anion Gap 14.3, BUN 14, Creatinine 0.70, Estimated Creat Clear 40, Estimated GFR 80, Est GFR ( Amer) 96, Glucose 96, Calcium 9.7, Total Bilirubin 0.5, AST 27, ALT 12, Alkaline Phosphatase 133 H, Troponin I < 0.01, NT-Pro-B Natriuret Pep 973 H, Total Protein 7.6, Albumin 4.6, Globulin 3.0, Albumin/Globulin Ratio 1.5, Lipase 132 02/17/21 18:00: Lactate 1.0 02/17/21 18:07: SARS-CoV-2 (PCR) Not detected, Influenza A Untype (PCR) Not detected, Influenza Type B (PCR) Not detected 02/17/21 18:20: Urine Color Yellow, Urine Appearance Clear, Urine pH 7.0, Ur Specific [place] <= 1.005, Urine Protein Negative, Urine Glucose (UA) Negative, Urine Ketones Trace, Urine Blood Negative, Urine Nitrate Negative, Urine Bilirubin Negative, Urine Urobilinogen 0.2, Ur Leukocyte Esterase Trace, Urine WBC Occasional, Ur Squamous Epith Cells Occasional, Urine Bacteria Trace Result diagrams: 02/17/21 18:00 02/17/21 18:00 Orders (Tests/Meds): ED MEDICATIONS Discontinued Medications Generic Name Dose Route Start Last Admin Trade Name Freq PRN Reason Stop Dose Admin Iopamidol 100 ml 02/17/21 18:59 02/17/21 19:00 Iopamidol-370 (76%);100ml Bottle IV 02/17/21 19:00 100 ml ONCE ONE Administration Sodium Chloride 50 ml 02/17/21 18:59 02/17/21 19:00 0.9 % Sodium Chloride 50 Ml Vial IV 02/17/21 19:00 50 ml ONCE ONE Administration Sodium Chloride 10 ml 02/17/21 18:59 02/17/21 19:00 Sodium Chloride 0.9% 10ml Syr (Rad Only) IV 02/17/21 19:00 10 ml ONCE ONE Administ
--- NOTE | 2021-02-17 17:36 | PC.NURSE ---
Pt to CT scanner via stretcher at this time.
[2021-02-17 18:14] LABS: Coronavirus 19, PCR Not Detected (NotDetected); Influenza A, PCR Not Detected (NotDetected); Influenza B, PCR Not Detected (NotDetected)
[2021-02-17 18:17] LABS: Basophils % 0.2 % (0.1-2.0); Eosinophils # 0.1 K/mm3 (0.0-0.4); Eosinophils % 1.1 % (0.1-12.0); Hematocrit 37.6 % (37.0-47.0); Hemoglobin 11.9 g/dL (12.2-16.2); Lymphocytes # 2.7 K/mm3 (0.7-4.5); Lymphocytes % 32.8 % (10-50); Mean Corpuscular HGB Conc 31.7 g/dL (31.8-35.4); Mean Corpuscular Volume 91.3 fl (81-99); Mean Platelet Volume 7.6 fl (7.4-10.4); Monocytes # 0.4 K/mm3 (0.1-1.0); Monocytes % 5.2 % (1.7-9.3); Neutrophils # 4.9 K/mm3 (1.8-7.8); Neutrophils % 60.6 % (37.0-80.0); Platelet Count 302 K/mm3 (142-424); Red Blood Count 4.12 M/mm3 (4.20-5.40); Red Cell Distribution Width 17.6 % (11.5-17.5); White Blood Count 8.1 K/mm3 (4.8-10.8)
--- NOTE | 2021-02-17 18:21 | PC.NURSE ---
Pt up to restroom with nurse assist, pt missed hat in toilet.
[2021-02-17 18:22] LABS: Alanine Aminotransferase 12 U/L (12-78); Albumin Level 4.6 g/dl (3.5-5.0); Albumin/Globulin Ratio 1.5 (1.1-1.8); Alkaline Phosphatase 133 U/L (38-126); Anion Gap 14.3 mEq/L (5-15); Aspartate Amino Transferase 27 U/L (14-36); Bilirubin,Total 0.5 mg/dl (0.2-1.3); Blood Urea Nitrogen 14 mg/dl (7-17); Calcium 9.7 mg/dl (8.4-10.2); Carbon Dioxide 26 mmol/L (22.0-30.0); Chloride 101 mmol/L (98-107); Creatinine Clearance Estimated 40 mL/min (50-200); Estimated Glomerular Filt Rate 80 ml/min (>60); GFR (African American) 96 ML/MIN (>60); Glucose 96 mg/dl (74-100); Lipase 132 U/L (23-300); Potassium 4.3 mmoL/L (3.5-5.1); Sodium 137 mmol/L (136-145); Total Protein,Serum 7.6 g/dl (6.3-8.2)
--- NOTE | 2021-02-17 18:33 | CT_ITS ---
PROCEDURE INFORMATION: Exam: CT Angiography Head With Contrast, Arteriography Exam date and time: 02/17/21 06:33 PM Age: 85 years old Clinical indication: Dizziness and giddiness; Additional info: Weakness, dizzy TECHNIQUE: Imaging protocol: Computed tomography angiography of the head with contrast. Exam focused on the arteries. 3D rendering (Not supervised by radiologist): MIP and/or 3D reconstructed images were created by the technologist. Radiation optimization: All CT scans at this facility use at least one of these dose optimization techniques: automated exposure control; mA and/or kV adjustment per patient size (includes targeted exams where dose is matched to clinical indication); or iterative reconstruction. Contrast material: ISOVUE 370; Contrast volume: 100 ml; Contrast route: INTRAVENOUS (IV); COMPARISON: CT HEAD/BRAIN WO CON 02/17/21 05:39 PM FINDINGS: ANTERIOR CIRCULATION: Right internal carotid artery: Unremarkable. Intracranial segment is patent with no significant stenosis. No aneurysm. Right middle cerebral artery: Unremarkable. No occlusion or significant stenosis. No aneurysm. Right anterior cerebral artery: Unremarkable. No occlusion or significant stenosis. No aneurysm. Left internal carotid artery: Unremarkable. Intracranial segment is patent with no significant stenosis. No aneurysm. Left middle cerebral artery: Unremarkable. No occlusion or significant stenosis. No aneurysm. Left anterior cerebral artery: Unremarkable. No occlusion or significant stenosis. No aneurysm. POSTERIOR CIRCULATION: Right vertebral artery: Unremarkable. No occlusion or significant stenosis. No aneurysm. Left vertebral artery: Unremarkable. No occlusion or significant stenosis. No aneurysm. Basilar artery: Unremarkable. No occlusion or significant stenosis. No aneurysm. Right posterior cerebral artery: Unremarkable. No occlusion or significant stenosis. No aneurysm. Left posterior cerebral artery: Unremarkable. No occlusion or significant stenosis. No aneurysm. Brain: No definite mass, mass effect, or midline shift. Cerebral ventricles: No ventriculomegaly. Bones/joints: Unremarkable. No acute fracture. Soft tissues: Unremarkable. IMPRESSION: No large vessel stenosis or occlusion.
--- NOTE | 2021-02-17 18:33 | CT_ITS ---
PROCEDURE INFORMATION: Exam: CT Angiography Neck With Contrast Exam date and time: 02/17/21 06:33 PM Age: 85 years old Clinical indication: Dizziness and giddiness; Prior surgery; Surgery date: 6+ months; Surgery type: Thyroid; Additional info: Weakness, dizzy TECHNIQUE: Imaging protocol: Computed tomography angiography of the neck with contrast. 3D rendering (Not supervised by radiologist): MIP and/or 3D reconstructed images were created by the technologist. Radiation optimization: All CT scans at this facility use at least one of these dose optimization techniques: automated exposure control; mA and/or kV adjustment per patient size (includes targeted exams where dose is matched to clinical indication); or iterative reconstruction. Contrast material: ISOVUE 370; Contrast volume: 100 ml; Contrast route: INTRAVENOUS (IV); COMPARISON: CT HEAD/BRAIN WO CON 02/17/21 05:39 PM FINDINGS: Right common carotid artery: No stenosis. No dissection or occlusion. Right internal carotid artery: No stenosis of the extracranial segment. No dissection or occlusion. Right external carotid artery: No occlusion or stenosis of the origin. Left common carotid artery: No stenosis. No dissection or occlusion. Left internal carotid artery: No stenosis of the extracranial segment. No dissection or occlusion. Left external carotid artery: No occlusion or stenosis of the origin. Right vertebral artery: No stenosis. No dissection or occlusion. Left vertebral artery: No stenosis. No dissection or occlusion. Soft tissues: Normal. No significant soft tissue swelling. Bones/joints: No acute fracture. IMPRESSION: No stenosis or occlusion. REFERENCES: NASCET CRITERIA. The degree of internal carotid artery stenosis is based on NASCET criteria. Normal is no stenosis. Mild is less than 50% stenosis. Moderate is 50-69% stenosis. Severe is 70% to 99% stenosis. Total occlusion is no detectable patent lumen.
[2021-02-17 18:34] LABS: NT Pro Brain Natriuretic Pep. 973 pg/mL (0-450)
[2021-02-17 18:37] LABS: Troponin I < 0.01 ng/ml (0.00-0.034)
[2021-02-17 18:38] LABS: Activated Partial Thrombo Time 22.2 seconds (22.8-30.6); Prothrombin Time 10.8 seconds (10.1-12.5)
--- NOTE | 2021-02-17 18:40 | PC.NURSE ---
pt back to rad at this time.
[2021-02-17 18:41] LABS: INR 0.91 (0.9-1.1)
[2021-02-17 19:27] LABS: Appearance,Urine CLEAR (Clear); Bilirubin,Urine Negative (Negative); Blood, Urine Negative (Negative); Color,Urine YELLOW (Yellow); Glucose,Urine (UA) Negative (Negative); Ketones,Urine TRACE (Negative); Leukocyte Esterase,Urine TRACE (Negative); Nitrate,Urine Negative (Negative); Protein,Urine Negative (Negative); Specific Gravity, Urine <= 1.005 (1.005-1.030); Urobilinogen,Urine 0.2 EU/dl (0.2)
[2021-02-17 19:29] LABS: Bacteria,Urine Trace /lpf; Squamous Epithelial Cell,Urine Occasional #/hpf (0-5); WBC,Urine Occasional #/hpf (0-3)
--- NOTE | 2021-02-17 19:48 | PC.NURSE ---
MD at bedside when medicating patient states that a bedside swallow eval is not necessary at this time. patient does not have any deficits to inhibit swallow. patient took medication without any difficulties. calling dietary at this time to order patient dinner.
--- NOTE | 2021-02-17 20:03 | PC.NURSE ---
patient up to bathroom with RN assistance x1. patients dinner to bedside and patient eating at this time.
--- NOTE | 2021-02-17 20:29 | PC.NURSE ---
doctor in room at this time updating patient son on plan of care. report called to Iveth ALCAZAR
--- NOTE | 2021-02-17 20:41 | PC.NURSE ---
patient up to floor via wheelchair.
--- NOTE | 2021-02-17 21:21 | PC.NURSE ---
unable to complete med rec. pt does not know home medications
[2021-02-18] VITALS (7 sets, daily range): BP systolic 142–167; BP diastolic 68–81; PULSE 70–124; RESP 15–17; TEMP 36.6–37; O2SAT 94–100
--- NOTE | 2021-02-18 03:17 | PC.NURSE ---
Pt A&O and has slept well through the night. No c/o pain. NIH stroke scale has been negative this shift, pt motor function has been intact and baseline, no drift noted. Pt has had some difficulty finding words during conversation but speak is clear and appropriate. Pt is a 1 assist to the BSC, tolerates well. Luns CTA, on room air. Bowel sounds x4, abd soft and nontender. IV patent, NS @ 50. Pt able to make needs known. VSS, call light in reach, no concerns at this time.
[2021-02-18 06:17] LABS: Basophils % 0.3 % (0.1-2.0); Eosinophils # 0.1 K/mm3 (0.0-0.4); Eosinophils % 2.1 % (0.1-12.0); Hematocrit 34.5 % (37.0-47.0); Hemoglobin 10.9 g/dL (12.2-16.2); Lymphocytes # 2.3 K/mm3 (0.7-4.5); Lymphocytes % 46.1 % (10-50); Mean Corpuscular HGB Conc 31.8 g/dL (31.8-35.4); Mean Corpuscular Hemoglobin 28.7 pg (27.0-31.2); Mean Corpuscular Volume 90.5 fl (81-99); Monocytes # 0.4 K/mm3 (0.1-1.0); Monocytes % 7.5 % (1.7-9.3); Neutrophils # 2.2 K/mm3 (1.8-7.8); Platelet Count 265 K/mm3 (142-424); Red Blood Count 3.81 M/mm3 (4.20-5.40); White Blood Count 4.9 K/mm3 (4.8-10.8)
[2021-02-18 06:57] LABS: Alanine Aminotransferase 10 U/L (12-78); Albumin Level 3.8 g/dl (3.5-5.0); Albumin/Globulin Ratio 1.4 (1.1-1.8); Alkaline Phosphatase 110 U/L (38-126); Anion Gap 10.5 mEq/L (5-15); Aspartate Amino Transferase 26 U/L (14-36); Bilirubin,Total 0.5 mg/dl (0.2-1.3); Blood Urea Nitrogen 10 mg/dl (7-17); Carbon Dioxide 25 mmol/L (22.0-30.0); Chloride 105 mmol/L (98-107); Creatinine Clearance Estimated 41 mL/min (50-200); Estimated Glomerular Filt Rate 95 ml/min (>60); GFR (African American) 115 ML/MIN (>60); Globulin 2.7 g/dL (1.3-3.2); Glucose 96 mg/dl (74-100); Potassium 3.5 mmoL/L (3.5-5.1); Sodium 137 mmol/L (136-145); Total Protein,Serum 6.5 g/dl (6.3-8.2)
--- NOTE | 2021-02-18 08:34 | HMH.HP ---
*Admission Date: 02/18/21 *Chief complaint: Dizziness *History of present illness: 85-year-old white female with history of hip fracture on December 15, has had one admission since that time with mental status changes attributed to UTI. Yesterday at home began to have intense dizziness, discoordination of arms and hands, and inappropriate activities, such as trying to draw and write with a fork. She also was noted to have significant speech slurring. Brought to the emergency department. Vital signs were unremarkable, CT scan showed no evidence of acute bleed, admitted to hospital for further evaluation. This morning she feels much better and is back to normal [facility] History I have reviewed the patient's past medical history: Yes Medical History: Reports:: Gastroesophageal Reflux Disease(GERD), Hyperlipidemia, Hypertension Denies:: Cancer, Diabetes Mellitus Type 1, Diabetes Mellitus Type 2, Internal Pacemaker, MRSA, Seizures *Have you ever received a pneumonia vaccine?: Yes *Have you received a flu vaccine this season?: Yes Other Medical History: Reports: Arthritis, Cataracts, Hypothyroidism, Thyroid Disease. Denies: Blood Transfusion Reaction Laterality Cases: Right: Arthroscopy Hip Other Surgeries: Yes: Appendectomy, Hysterectomy-Total, Thyroidectomy, Other (back). No: Pacemaker Amputation: No Fractures: Yes (hip) - *Social History Last grade of school completed: Advanced degree Smoking Status: Never smoker Alcohol Intake: never Substance Use Type: denies use *Occupational Status:: retired Housing: house Household Members: none *Travel in the last 8 weeks: None Family Hx:: Unable to obtain Review of Systems - Review of Systems Review of systems:: pertinent systems reviewed and negative unless documented below - *Neurologic Reports dizziness, Reports lack of coordination, Reports weakness Meds Home Medications Medication Instructions Recorded Confirmed Type Simvastatin 80 mg PO DAILY 04/05/18 02/18/21 History Cyclobenzaprine HCl 5 mg PO NEEDED PRN 01/20/21 02/18/21 History [Cyclobenzaprine 5mg Tab*] Escitalopram Oxalate 10 mg PO DAILY PRN 01/20/21 02/18/21 History Levothyroxine Sodium [Levoxyl] 112 mcg PO DAILY 01/20/21 02/18/21 History Losartan Potassium [Cozaar 50mg 50 mg PO DAILY 01/20/21 02/18/21 History Tablets] Meloxicam 7.5 mg PO DAILY 01/20/21 02/18/21 History Metoprolol Tartrate [Lopressor 25 mg PO BID 01/20/21 02/18/21 History 25mg tablet] Omeprazole 40 mg PO DAILY 01/20/21 02/18/21 History Saliva Substitute Combo No.9 1 dose PO QID 01/20/21 02/18/21 History [Biotene] Acetaminophen [Tylenol 500mg 500 mg PO Q4HWA 02/18/21 02/18/21 History tablet] Allergies Allergy/AdvReac Type Severity Reaction Status Date / Time acetaminophen Allergy Unknown Verified 05/11/19 07:34 [From Tylenol-Codeine #3] allergy reaction codeine Allergy Rash Verified 02/18/21 07:54 [From Tylenol-Codeine #3] cyclobenzaprine Allergy Unknown Verified 05/11/19 07:34 allergy reaction etodolac Allergy Unknown Verified 05/11/19 07:34 allergy reaction lisinopril Allergy Rash Verified 05/11/19 07:34 metronidazole Allergy Unknown Verified 05/11/19 07:34 allergy reaction tramadol Allergy Rash Verified 02/18/21 07:54 niacin AdvReac Unknown Verified 05/11/19 07:34 allergy reaction Exam Vital signs and Labs for Last 24 Hours: Temp Pulse Resp BP Pulse Ox 97.9 F 70 17 142/68 H 94 L 02/18/21 03:56 02/18/21 03:56 02/18/21 03:56 02/18/21 03:56 02/18/21 03:56 Laboratory Results - last 24 hr 02/17/21 18:00: WBC 8.1, RBC 4.12 L, Hgb 11.9 L, Hct 37.6, MCV 91.3, MCH 29.0, MCHC 31.7 L, RDW 17.6 H, Plt Count 302, MPV 7.6, Neut % (Auto) 60.6, Lymph % (Auto) 32.8, [place] % (Auto) 5.2, Eos % (Auto) 1.1, Baso % (Auto) 0.2, Neut # (Auto) 4.9, Lymph # (Auto) 2.7, [place] # (Auto) 0.4, Eos # (Auto) 0.1, Baso # (Auto) 0.0 02/17/21 18:00: PT 10.8, INR 0.91, A
--- NOTE | 2021-02-18 08:48 | P.CONPHA_ITS ---
[facility] Pharmacy VTE Monitoring - Patient Demographics Admission date: 02/18/21 Report Date: 02/18/21 Time: 08:49 Allergies/Adverse Reactions: Patient Allergies acetaminophen [From Tylenol-Codeine #3] Allergy (Verified 05/11/19 07:34) Unknown allergy reaction codeine [From Tylenol-Codeine #3] Allergy (Verified 02/18/21 07:54) Rash cyclobenzaprine Allergy (Verified 05/11/19 07:34) Unknown allergy reaction etodolac Allergy (Verified 05/11/19 07:34) Unknown allergy reaction lisinopril Allergy (Verified 05/11/19 07:34) Rash metronidazole Allergy (Verified 05/11/19 07:34) Unknown allergy reaction tramadol Allergy (Verified 02/18/21 07:54) Rash niacin Adverse Reaction (Verified 05/11/19 07:34) Unknown allergy reaction Height: 1.57 m Weight: 61.779 kg Patient Problems: Current Active Problems Discoordination (Acute) Cerebrovascular accident (Acute) Generalized weakness (Acute) - VTE Risk Labs: VTE Related Lab Results Hgb 10.9 g/dL (12.2-16.2) L 02/18/21 05:52 Hct 34.5 % (37.0-47.0) L 02/18/21 05:52 Plt Count 265 K/mm3 (142-424) 02/18/21 05:52 PT 10.8 seconds (10.1-12.5) 02/17/21 18:00 INR 0.91 (0.9-1.1) 02/17/21 18:00 APTT 22.2 seconds (22.8-30.6) L 02/17/21 18:00 BUN 10 mg/dl (7-17) D 02/18/21 05:52 Creatinine 0.60 mg/dl (0.52-1.04) 02/18/21 05:52 Estimated Creat Clear 41 mL/min (50-200) 02/18/21 05:52 Was VTE Risk Assessment Performed: Yes VTE Score: 2 VTE Risk Level: Low Risk Clinical Trial Participant: No - Prophylaxis VTE Prophylaxis Ordered?: Yes Types of VTE Prophylaxis: TEDS Knee High, Pharmacological Pharmacologic Type: Enoxaparin
--- NOTE | 2021-02-18 08:53 | HMH.PTEV ---
Physical Therapy Evaluation Rehab PT IP Evaluation Start: 02/18/21 07:00 Freq: ONCE Status: Active Protocol: Document 02/18/21 08:49 PHONOHEMI (Rec: 02/18/21 08:53 PHORNE [id number]) Subjective/History History History 85 yowf adm to [facility] with confusion, weakness, poss CVA. She reports she feels much better now and back to baseline. Subjective Subjective Pt with no c/o this am. Rehab PT IP Eval Objective Appearance Patient Behavior Appropriate Patient Orientation Person,Place,Time Difficulty following instructions none Speech Pattern Clear Ambulation Patient Able to Ambulate Yes Ambulation Observation IP General Gait Pattern Observation Decrease Stride Lngth (R), Decrease Stride Lngth (L) Ambulation Distance (feet) 40 Ambulation Assistive Device Rolling Walker Ambulation Ability Supervision/Stand by Balance Ability to Arise Able, uses arms to help Sitting Balance Steady, safe Standing Balance Steady, wide stance Dynamic Sitting Balance Ability Good Dynamic Standing Balance Ability Good Transfers Bed Transfer Ability Supervision/Stand by Chair Transfer Ability Supervision/Stand by Sit to Stand Bed Transfer Ability Supervision/Stand by Sit to Stand Chair Transfer Ability Supervision/Stand by ROM All Extremities PT ROM Status WFL MMT All Extremities PT MMT WFL Rehab PT IP prob,goals,plan Problems Date of Evaluation: 02/18/21 Discharge Plan PT Discharge Plan Pt presents at baseline for all mobility, ambulation, and speech. She is appropriate to return home once medically stable. G -code Required No PHYSICIAN CERTIFICATION: I certify the specified therapy services for Citlali Marroquin are required, authorized, and reviewed every 30 days.
--- NOTE | 2021-02-18 09:50 | HMH.OTEV ---
OT Inpatient Evaluation Rehab OT IP Evaluation Start: 02/18/21 07:00 Freq: ONCE Status: Complete Protocol: Document 02/18/21 09:26 DANIELLESULTANA (Rec: 02/18/21 09:50 MOOSE [id number]) Rehab OT IP Assessment Subjective History *Admission Date: 02/18/21 *Chief complaint: Dizziness *History of present illness: 85-year-old white female with history of hip fracture on December 15, has had one admission since that time with mental status changes attributed to UTI. Yesterday at home began to have intense dizziness, discoordination of arms and hands, and inappropriate activities, such as trying to draw and write with a fork. She also was noted to have significant speech slurring. Brought to the emergency department. Vital signs were unremarkable, CT scan showed no evidence of acute bleed, admitted to hospital for further evaluation. This morning she feels much better and is back to normal [facility] History I have reviewed the patient's past medical history: Yes Medical History: Reports:: Gastroesophageal Reflux Disease(GERD), Hyperlipidemia, Hypertension Patient verbalize to live at home alone with 1-2 MARI into home. Independent with all ADLs prior to hospitalization and recieving services for ORIF to L hip fx. Son provides transportation for outside appointments and grocery shopping. Subjective I'm feeling better today than I was yesterday. Instructed Patient on safety awareness during functional transfers, ambulationa and ADLs. Patient completed all tasks with SBA with
--- NOTE | 2021-02-18 11:13 | HMH.PHAINT ---
verified home medications based on list from home pharmacy
--- NOTE | 2021-02-18 14:44 | MR_ITS ---
PROCEDURE: MR HEAD/BRAIN WO CON CLINICAL INDICATION: CVA Slurred speech, hypertension COMPARISON: CT CT HEAD/BRAIN WO CON from 02/17/2021 TECHNIQUE: Routine multiplanar multi echo sequences are performed without gadolinium enhancement. FINDINGS: No midline shift, mass effect, intracranial hemorrhage, or hydrocephalus is evident. No evidence of acute infarction. There is generalized atrophy. Nonspecific T2 hyperintensity noted in the periventricular region consistent with ischemic gliotic change from microvascular disease. There are a few subcortical T2 hyperintensities as well also in keeping with microangiopathy. Small cystic areas noted in the left parietal occipital junction and could be related to old small lacunar infarctions. Dilated perivascular spaces are present. The cerebellopontine angles, cerebellum, and brainstem have an unremarkable appearance. Small amount fluid noted in the right mastoid sinus. The pituitary, optic chiasm, corpus callosum, and craniocervical junction have an unremarkable appearance. IMPRESSION: 1. No acute intracranial findings. 2. Right mastoid sinus disease Dictated by: Fam Cortés MD 02/18/2021 16:37 Fam Cortés MD in OV 02/18/2021 16:37
--- NOTE | 2021-02-18 17:45 | HMH.DCSUM ---
General - General Admission date:: 02/17/21 Discharge date: 02/18/21 HPI HPI: 85-year-old white female with history of hip fracture on December 15, has had one admission since that time with mental status changes attributed to UTI. Yesterday at home began to have intense dizziness, discoordination of arms and hands, and inappropriate activities, such as trying to draw and write with a fork. She also was noted to have significant speech slurring. Brought to the emergency department. Vital signs were unremarkable, CT scan showed no evidence of acute bleed, admitted to hospital for further evaluation. This morning she feels much better and is back to normal Hospital Course Hospital Course: Patient was admitted, after some IV fluids in the ER her symptoms cleared, vital signs remained normal, CT of the head was unremarkable except for some mild age-related changes, CTA of neck was clear. This morning the patient was subjected MRI given her significant symptoms consistent with cerebellar stroke but this was unremarkable. She felt well throughout the day today and wished to go home. In regards to the etiology of the spell the only thing I might be able to put together might be a mild UTI versus some medication confusion issues. Plan will be to discharge home, Macrobid daily for 10 days while awaiting for urine culture, follow-up with me in February as scheduled. Objective Vital signs: Temp Pulse Resp BP Pulse Ox 98.3 F 124 H 15 157/81 H 100 02/18/21 15:56 02/18/21 15:56 02/18/21 15:56 02/18/21 15:56 02/18/21 15:56 no acute distress - *Routine HEENT Exam Head: Present: normocephalic Eye: Present: EOMI, PERRL ENT: Present: mucous membranes moist - *Routine Neck Exam Present: supple - *Routine Respiratory Exam Present: CTA bilaterally - *Routine Cardiovascular Exam Present: RRR - *Routine Abdominal Exam Present: soft, normoactive bowel sounds. Absent: tenderness - *Routine Extremities Exam Absent: cyanosis, clubbing, edema - *Routine Skin Exam Present: warm. Absent: rash - Detailed Eye Exam Eyelids: Bilateral normal inspection Results Labs on day of discharge: Labs from last 24 hours 02/18/21 02/18/21 02/17/21 05:52 05:52 18:20 WBC 4.9 D RBC 3.81 L Hgb 10.9 L Hct 34.5 L MCV 90.5 MCH 28.7 MCHC 31.8 RDW 17.0 Plt Count 265 MPV 7.0 L Neut % (Auto) 44.0 Lymph % (Auto) 46.1 Mcclain % (Auto) 7.5 Eos % (Auto) 2.1 Baso % (Auto) 0.3 Neut # (Auto) 2.2 Lymph # (Auto) 2.3 Mcclain # (Auto) 0.4 Eos # (Auto) 0.1 Baso # (Auto) 0.0 PT INR APTT Sodium 137 Potassium 3.5 Chloride 105 Carbon Dioxide 25 Anion Gap 10.5 BUN 10 D Creatinine 0.60 Estimated Creat Clear 41 Estimated GFR 95 Est GFR ( Amer) 115 Glucose 96 Lactate Calcium 9.0 Total Bilirubin 0.5 AST 26 ALT 10 L Alkaline Phosphatase 110 Troponin I NT-Pro-B Natriuret Pep Total Protein 6.5 Albumin 3.8 D Globulin 2.7 Albumin/Globulin Ratio 1.4 Lipase Urine Color Yellow Urine Appearance Clear Urine pH 7.0 Ur Specific Hawkins <= 1.005 Urine Protein Negative Urine Glucose (UA) Negative Urine Ketones Trace Urine Blood Negative Urine Nitrate Negative Urine Bilirubin Negative Urine Urobilinogen 0.2 Ur Leukocyte Esterase Trace Urine WBC Occasional Ur Squamous Epith Cells Occasional Urine Bacteria Trace SARS-CoV-2 (PCR) Influenza A Untype (PCR) Influenza Type B (PCR) 02/17/21 02/17/21 02/17/21 18:07 18:00 18:00 WBC RBC Hgb Hct MCV MCH MCHC RDW Plt Count MPV Neut % (Auto) Lymph % (Auto) Mcclain % (Auto) Eos % (Auto) Baso % (Auto) Neut # (Auto) Lymph # (Auto) Mcclain # (Auto) Eos # (Auto) Baso # (Auto) PT INR APTT Sodium 137 Pota
== END 2021-02-18 18:10 | disposition home or self-care (01) | DRG 690 ==
LOC: ER 19:34 → 2ND 20:10
PROVIDERS: Admitting Provider Internal Medicine Adolescent Medicine; Emergency Provider Emergency Medicine; PCP Internal Medicine Adolescent Medicine; Visit Provider Internal Medicine Adolescent Medicine
DX: N39.0 Urinary tract infection, site not specified (principal); R53.1 Weakness; Z88.5 Allergy status to narcotic agent; E03.9 Hypothyroidism, unspecified; K21.9 Gastro-esophageal reflux disease without esophagitis; E78.00 Pure hypercholesterolemia, unspecified; I10 Essential (primary) hypertension; Z20.822 Contact with and (suspected) exposure to COVID-19; R47.81 Slurred speech
CPT/HCPCS: 36415; 70450; 70496; 70498; 70551; 71045; 80053; 81001; 83605; 83690; 83880; 84484; 85025; 85610; 85730; 87040; 87086; 93005; 96375; 97165; 97530; 99282; J2405; Q9967; U0003

== ENCOUNTER → 2021-04-08 13:25 | Outpatient (CLI) | payer MEDICARE, OTHER, SELFPAY | PROVIDERS: PCP Internal Medicine Adolescent Medicine; Visit Provider Nurse Practitioner | DX: Z20.822 Contact with and (suspected) exposure to COVID-19 (principal) | CPT/HCPCS: C9803; U0003; U0005 ==

== ENCOUNTER → 2021-05-13 09:13 | Outpatient (CLI) | payer MEDICARE, OTHER, SELFPAY ==
[2021-05-13 09:43] LABS: Basophils % 0.4 % (0.1-2.0); Eosinophils # 0.2 K/mm3 (0.0-0.4); Eosinophils % 3.7 % (0.1-12.0); Hematocrit 43.2 % (37.0-47.0); Hemoglobin 13.5 g/dL (12.2-16.2); Lymphocytes # 2.4 K/mm3 (0.7-4.5); Mean Corpuscular HGB Conc 31.3 g/dL (31.8-35.4); Mean Corpuscular Hemoglobin 29.6 pg (27.0-31.2); Mean Corpuscular Volume 94.5 fl (81-99); Mean Platelet Volume 6.8 fl (7.4-10.4); Monocytes # 0.3 K/mm3 (0.1-1.0); Monocytes % 6.1 % (1.7-9.3); Neutrophils # 2.4 K/mm3 (1.8-7.8); Neutrophils % 44.9 % (37.0-80.0); Platelet Count 322 K/mm3 (142-424); Red Blood Count 4.57 M/mm3 (4.20-5.40); Red Cell Distribution Width 15.2 % (11.5-17.5); White Blood Count 5.4 K/mm3 (4.8-10.8)
[2021-05-13 09:57] LABS: Chloride 99 mmol/L (98-107); Potassium 4.9 mmoL/L (3.5-5.1); Sodium 137 mmol/L (136-145)
[2021-05-13 09:59] LABS: Blood Urea Nitrogen 18 mg/dl (7-17); Estimated Glomerular Filt Rate 80 ml/min (>60); GFR (African American) 96 ML/MIN (>60)
[2021-05-13 10:00] LABS: Alanine Aminotransferase 14 U/L (12-78); Albumin Level 4.6 g/dl (3.5-5.0); Albumin/Globulin Ratio 1.6 (1.1-1.8); Alkaline Phosphatase 97 U/L (38-126); Anion Gap 12.9 mEq/L (5-15); Aspartate Amino Transferase 27 U/L (14-36); Bilirubin,Total 0.3 mg/dl (0.2-1.3); Calcium 9.6 mg/dl (8.4-10.2); Carbon Dioxide 30 mmol/L (22.0-30.0); Chol/HDL Ratio 2.4 (1-3.5); Cholesterol 224 mg/dl (140-200); Globulin 2.9 g/dL (1.3-3.2); Glucose 86 mg/dl (74-100); HDL Cholesterol 92 mg/dl (40-60); Total Protein,Serum 7.5 g/dl (6.3-8.2); Triglycerides 130 mg/dl (30-150); VLDL Cholesterol 26 mg/dL (0-40)
[2021-05-13 10:12] LABS: Direct LDL Cholesterol 85.55 mg/dL (100-129)
[2021-05-13 10:34] LABS: Thyroid Stimulating Hormone 2.32 uIU/mL (0.465-4.68)
== END ==
PROVIDERS: Visit Provider Internal Medicine Adolescent Medicine
DX: E78.5 Hyperlipidemia, unspecified (principal); I10 Essential (primary) hypertension; E03.9 Hypothyroidism, unspecified
CPT/HCPCS: 36415; 80053; 80061; 84443; 85025

== ENCOUNTER → 2021-10-18 09:03 | Outpatient (CLI) | payer MEDICARE, OTHER, SELFPAY ==
[2021-10-18 09:52] LABS: Basophils # 0.2 K/mm3 (0-0.2); Basophils % 2.8 % (0.1-2.0); Eosinophils # 0.1 K/mm3 (0.0-0.4); Eosinophils % 2.3 % (0.1-12.0); Hematocrit 42.2 % (37.0-47.0); Hemoglobin 13.3 g/dL (12.2-16.2); Lymphocytes # 2.2 K/mm3 (0.7-4.5); Lymphocytes % 43.1 % (10-50); Mean Corpuscular HGB Conc 31.4 g/dL (31.8-35.4); Mean Corpuscular Volume 98.6 fl (81-99); Mean Platelet Volume 8.1 fl (7.4-10.4); Monocytes # 0.3 K/mm3 (0.1-1.0); Monocytes % 6.2 % (1.7-9.3); Neutrophils # 2.4 K/mm3 (1.8-7.8); Neutrophils % 45.6 % (37.0-80.0); Platelet Count 298 K/mm3 (142-424); Red Blood Count 4.28 M/mm3 (4.20-5.40); Red Cell Distribution Width 14.7 % (11.5-17.5); White Blood Count 5.2 K/mm3 (4.8-10.8)
[2021-10-18 10:32] LABS: Alanine Aminotransferase 18 U/L (12-78); Albumin Level 4.7 g/dl (3.5-5.0); Albumin/Globulin Ratio 1.9 (1.1-1.8); Alkaline Phosphatase 66 U/L (38-126); Anion Gap 12.8 mEq/L (5-15); Aspartate Amino Transferase 27 U/L (14-36); Bilirubin,Total 0.6 mg/dl (0.2-1.3); Blood Urea Nitrogen 22 mg/dl (7-17); Calcium 9.5 mg/dl (8.4-10.2); Carbon Dioxide 27 mmol/L (22.0-30.0); Chloride 101 mmol/L (98-107); Chol/HDL Ratio 2.4 (1-3.5); Cholesterol 222 mg/dl (140-200); Estimated Glomerular Filt Rate 68 ml/min (>60); GFR (African American) 82 ML/MIN (>60); Globulin 2.5 g/dL (1.3-3.2); Glucose 85 mg/dl (74-100); HDL Cholesterol 92 mg/dl (40-60); Potassium 4.8 mmoL/L (3.5-5.1); Sodium 136 mmol/L (136-145); Total Protein,Serum 7.2 g/dl (6.3-8.2); Triglycerides 118 mg/dl (30-150); VLDL Cholesterol 24 mg/dL (0-40)
[2021-10-18 10:43] LABS: Direct LDL Cholesterol 76.61 mg/dL (100-129)
[2021-10-18 14:05] LABS: Triiodothryronine (T3) Uptake 29 % (23.5-40.5)
[2021-10-18 14:06] LABS: Free Thyroxine Index 3.2 ug/dL (5.93-13.13); T4 (Thyroxine) 11.2 ug/dl (5.53-11.0)
[2021-10-18 14:19] LABS: Thyroid Stimulating Hormone 1.19 uIU/mL (0.465-4.68)
== END ==
PROVIDERS: Visit Provider Internal Medicine Adolescent Medicine
DX: E03.9 Hypothyroidism, unspecified (principal); E78.5 Hyperlipidemia, unspecified
CPT/HCPCS: 36415; 80053; 80061; 84436; 84443; 84479; 85025

== ENCOUNTER → 2021-12-03 13:40 | Outpatient (POV) | payer MEDICARE, OTHER, SELFPAY | PROVIDERS: Visit Provider Dermatology | DX: Z00.00 Encounter for general adult medical examination without abnormal findings (principal) ==

== ENCOUNTER → 2021-12-24 14:02 | Outpatient (POV) | payer MEDICARE, OTHER, SELFPAY | PROVIDERS: Visit Provider Dermatology | DX: Z00.00 Encounter for general adult medical examination without abnormal findings (principal) ==

== ENCOUNTER → 2022-05-09 10:00 | Outpatient (CLI) | payer MEDICARE, OTHER, SELFPAY ==
[2022-05-09 10:44] LABS: Basophils % 0.6 % (0.1-2.0); Eosinophils # 0.1 K/mm3 (0.0-0.4); Eosinophils % 2.3 % (0.1-12.0); Hematocrit 40.2 % (37.0-47.0); Hemoglobin 13.1 g/dL (12.2-16.2); Lymphocytes # 2.1 K/mm3 (0.7-4.5); Lymphocytes % 33.5 % (10-50); Mean Corpuscular HGB Conc 32.5 g/dL (31.8-35.4); Mean Corpuscular Hemoglobin 30.1 pg (27.0-31.2); Mean Corpuscular Volume 92.7 fl (81-99); Mean Platelet Volume 7.5 fl (7.4-10.4); Monocytes # 0.5 K/mm3 (0.1-1.0); Monocytes % 7.7 % (1.7-9.3); Neutrophils # 3.5 K/mm3 (1.8-7.8); Neutrophils % 55.8 % (37.0-80.0); Platelet Count 288 K/mm3 (142-424); Red Blood Count 4.34 M/mm3 (4.20-5.40); Red Cell Distribution Width 13.9 % (11.5-17.5); White Blood Count 6.2 K/mm3 (4.8-10.8)
[2022-05-09 11:06] LABS: Alanine Aminotransferase 19 U/L (12-78); Albumin Level 4.3 g/dl (3.5-5.0); Albumin/Globulin Ratio 1.7 (1.1-1.8); Alkaline Phosphatase 118 U/L (38-126); Anion Gap 14.7 mEq/L (5-15); Aspartate Amino Transferase 31 U/L (14-36); Bilirubin,Total 0.5 mg/dl (0.2-1.3); Blood Urea Nitrogen 17 mg/dl (7-17); Calcium 9.3 mg/dl (8.4-10.2); Carbon Dioxide 27 mmol/L (22.0-30.0); Chloride 98 mmol/L (98-107); Chol/HDL Ratio 2.2 (1-3.5); Cholesterol 195 mg/dl (140-200); Estimated Glomerular Filt Rate 59 ml/min (>60); GFR (African American) 72 ML/MIN (>60); Globulin 2.6 g/dL (1.3-3.2); Glucose 80 mg/dl (74-100); HDL Cholesterol 89 mg/dl (40-60); Potassium 4.7 mmoL/L (3.5-5.1); Sodium 135 mmol/L (136-145); Total Protein,Serum 6.9 g/dl (6.3-8.2); Triglycerides 112 mg/dl (30-150); VLDL Cholesterol 22 mg/dL (0-40)
[2022-05-09 11:17] LABS: Direct LDL Cholesterol 71.38 mg/dL (100-129)
[2022-05-09 11:22] LABS: 25-OH Vitamin D, Total 40.3 ng/mL (30-100)
[2022-05-09 11:37] LABS: Thyroid Stimulating Hormone 1.48 uIU/mL (0.465-4.68)
== END ==
PROVIDERS: PCP Internal Medicine Adolescent Medicine; Visit Provider Internal Medicine Adolescent Medicine
DX: I48.0 Paroxysmal atrial fibrillation (principal); E78.00 Pure hypercholesterolemia, unspecified
CPT/HCPCS: 36415; 80053; 80061; 82306; 84443; 85025

== ENCOUNTER → 2022-10-09 08:41 | Outpatient (CLI) | payer MEDICARE, OTHER, SELFPAY ==
[2022-10-09 09:31] LABS: Basophils % 0.9 % (0.1-2.0); Eosinophils # 0.2 K/mm3 (0.0-0.4); Eosinophils % 4.3 % (0.1-12.0); Hematocrit 40.5 % (37.0-47.0); Hemoglobin 12.8 g/dL (12.2-16.2); Lymphocytes # 1.7 K/mm3 (0.7-4.5); Lymphocytes % 37.7 % (10-50); Mean Corpuscular HGB Conc 31.6 g/dL (31.8-35.4); Mean Corpuscular Hemoglobin 29.2 pg (27.0-31.2); Mean Corpuscular Volume 92.3 fl (81-99); Mean Platelet Volume 7.4 fl (7.4-10.4); Monocytes # 0.3 K/mm3 (0.1-1.0); Monocytes % 7.3 % (1.7-9.3); Neutrophils # 2.3 K/mm3 (1.8-7.8); Neutrophils % 49.8 % (37.0-80.0); Platelet Count 284 K/mm3 (142-424); Red Blood Count 4.39 M/mm3 (4.20-5.40); Red Cell Distribution Width 14.9 % (11.5-17.5); White Blood Count 4.5 K/mm3 (4.8-10.8)
[2022-10-09 10:11] LABS: Direct LDL Cholesterol 80.27 mg/dL (100-129)
[2022-10-09 10:15] LABS: 25-OH Vitamin D, Total 58.2 ng/mL (30-100)
[2022-10-09 10:17] LABS: Free Thyroxine Index 2.5 ug/dL (5.93-13.13); T4 (Thyroxine) 9.8 ug/dl (5.53-11.0); Triiodothryronine (T3) Uptake 26 % (23.5-40.5)
[2022-10-09 10:58] LABS: Alanine Aminotransferase 17 U/L (12-78); Albumin Level 4.5 g/dl (3.5-5.0); Albumin/Globulin Ratio 1.9 (1.1-1.8); Alkaline Phosphatase 76 U/L (38-126); Anion Gap 9.9 mEq/L (5-15); Aspartate Amino Transferase 27 U/L (14-36); Bilirubin,Total 0.5 mg/dl (0.2-1.3); Blood Urea Nitrogen 24 mg/dl (7-17); Carbon Dioxide 28 mmol/L (22.0-30.0); Chloride 101 mmol/L (98-107); Chol/HDL Ratio 2.4 (1-3.5); Cholesterol 208 mg/dl (140-200); Estimated Glomerular Filt Rate 47 ml/min (>60); GFR (African American) 57 ML/MIN (>60); Globulin 2.4 g/dL (1.3-3.2); Glucose 86 mg/dl (74-100); HDL Cholesterol 86 mg/dl (40-60); Potassium 4.9 mmoL/L (3.5-5.1); Sodium 134 mmol/L (136-145); Total Protein,Serum 6.9 g/dl (6.3-8.2); Triglycerides 81 mg/dl (30-150); VLDL Cholesterol 16 mg/dL (0-40)
== END ==
PROVIDERS: PCP Internal Medicine Adolescent Medicine; Visit Provider Internal Medicine Adolescent Medicine
DX: E03.9 Hypothyroidism, unspecified (principal); E78.5 Hyperlipidemia, unspecified; I48.0 Paroxysmal atrial fibrillation; M15.9 Polyosteoarthritis, unspecified
CPT/HCPCS: 36415; 80053; 80061; 82306; 84436; 84443; 84479; 85025

== ENCOUNTER → 2023-04-08 11:51 | Outpatient (CLI) | payer MEDICARE, OTHER, SELFPAY ==
[2023-04-08 13:59] LABS: Free T4 (Free Thyroxine) 1.47 ng/dl (0.78-2.19)
[2023-04-08 14:18] LABS: Thyroid Stimulating Hormone 0.14 uIU/mL (0.465-4.68)
[2023-04-08 14:53] LABS: Folate > 20.00 ng/mL; Vitamin B12 975 pg/mL (239-931)
== END ==
PROVIDERS: PCP Internal Medicine Adolescent Medicine; Visit Provider Specialist
DX: E07.9 Disorder of thyroid, unspecified (principal); R53.1 Weakness; E78.5 Hyperlipidemia, unspecified; G20 Parkinson's disease; I10 Essential (primary) hypertension; M54.9 Dorsalgia, unspecified; W19.XXXA Unspecified fall, initial encounter; R79.89 Other specified abnormal findings of blood chemistry
CPT/HCPCS: 36415; 82607; 82746; 84439; 84443; 84481

== ENCOUNTER 2023-05-17 16:14 | Emergency (ER) | payer MEDICARE, OTHER, SELFPAY ==
[2023-05-17 16:16] VITALS: BP 188/64; PULSE 61; RESP 16; TEMP 36.6; O2SAT 97; BMI 27.4
--- NOTE | 2023-05-17 16:34 | XR_ITS ---
PROCEDURE INFORMATION: Exam: XR Chest Exam date and time: 05/17/2023 5:03 PM Age: 88 years old Clinical indication: Dyspnea TECHNIQUE: Imaging protocol: Radiologic exam of the chest. Views: 1 view. COMPARISON: CR XR CHEST PORTABLE 02/17/2021 5:48 PM FINDINGS: Lungs: Hyperlucent changes are demonstrated. Increase in the lung volumes is demonstrated. Pleural spaces: Unremarkable. No pleural effusion. No pneumothorax. Heart/Mediastinum: Unremarkable. No cardiomegaly. Diaphragm: There is flattening of the hemidiaphragms. Bones/joints: Unremarkable. IMPRESSION: No evidence of acute cardiopulmonary disease.
--- NOTE | 2023-05-17 16:40 | HMH.EDGENADL ---
Discharge Plan Disposition Patient Disposition: Home, Self-Care Prescriptions Prescriptions: New cefdinir 300 mg capsule 300 mg PO BID 7 Days Qty: 14 0RF No Action losartan 100 mg tablet 100 mg PO DAILY azelastine 137 mcg (0.1 %) aerosol,spray intranasal Patient Comments: INSTILL 2 SPRAYS IN EACH NOSTRIL TWICE DAILY carbidopa-levodopa 25-100 mg tablet extended release 1 tab PO TID Qty: 90 1RF omeprazole 40 MG capsule,delayed release(DR/EC) 40 mg PO DAILY meloxicam 7.5 MG tablet 7.5 mg PO BID levothyroxine 112 MCG tablet 112 mcg PO DAILY metoprolol tartrate 25 MG tablet 25 mg PO BID escitalopram oxalate 10 MG tablet 10 mg PO DAILY acetaminophen 500 MG tablet 500 mg PO Q4HWA simvastatin 80 MG tablet 80 mg PO DAILY Referrals Follow up/Referrals: Himanshu Escobar MD [Primary Care Provider] - See instructions Activity Restrictions/Add. Instructions Additional Instructions/Restrictions: There is no evidence of emergent medical condition identified today. Your urinalysis was slightly abnormal concerning for possible urinary tract infection and out of abundance of caution we will treat given the fact that you had some chills. Your scalp burning is most likely a side effect from the topical medication you are placing on your scalp and recommend that you stop this medication and to discuss the case further with Dr. Green. Lastly her hypertension without any clinical signs or symptoms of endorgan damage is technically asymptomatic hypertension and no emergent intervention was needed please take a blood pressure log as discussed and discussed the case with Dr. Diaz and is my recommendation that your goal blood pressure based on most up-to-date guidelines is 150/90. There is no evidence of any sepsis or septic shock or other alternative explanation to your symptoms today. Please return with any worsening symptoms or concerns. Clinical Impressions Clinical Impression: Chills, Side effect of drug, UTI (urinary tract infection), Asymptomatic hypertension Discharge ED Provider: Kika Romero General Adult HPI General Chief complaint: Weakness Stated complaint: poss allergic reaction, facial redness,shaky Time Seen by Provider: 05/17/23 16:17 History of Present Illness HPI narrative: Patient is an 88-year-old female with multiple complaints to the emergency department today. Her primary complaint is chills and feeling shaky. Last time she had this complaint she had a urinary tract infection but she denies any dysuria frequency urgency etc. No changes in mental status which she had last time she had a urinary tract infection which was systemic. No fevers or chills. She did recently have a flu vaccine just a few days ago. She denies any respiratory symptoms. 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 She also complains of significant burning associated with this medication on her scalp and her head. Skin on her back has significantly improved recently. Related Data Home Medications Medication Instructions Recorded Confirmed simvastatin 80 mg tablet 80 mg PO DAILY Cholesterol 04/05/18 05/04/23 escitalopram oxalate 10 mg tablet 10 mg PO DAILY anxiety/depression 01/20/21 05/04/23 levothyroxine 112 mcg tablet 112 mcg PO DAILY Hypothyroidism 01/20/21 05/04/23 meloxicam 7.5 mg tablet 7.5 mg PO BID Arhtritis pain 01/20/21 05/04/23 metoprolol tartrate 25 mg tablet 25 mg PO BID Hypertension 01/20/21 05/04/23 omeprazole 40 mg capsule,delayed 40 mg PO DAILY acid reflux 01/20/21 05/04/23 release acetaminophen 500 mg tablet 500 mg PO Q4HWA pain 02/18/21 05/04/23 losartan 100 mg tablet 100 mg PO DAILY 04/08/23 05/04/23 azelastine 137 mcg (0.1 %) nasal intranasal 05/04/23 05/04/23 spray aerosol Previous Rx's Medication Instructio
[2023-05-17 16:52] LABS: Microscopic, Urine URINE MICROSCOPIC (MICROSCOPIC)
--- NOTE | 2023-05-17 16:57 | ECG_ITS ---
APPROVED REPORT Exam: Resting ECG HR:56 bpm ECG Measurements Heart Rate 56 AXES RI 189 P 72 QRSd 93 QRS -10 QT 435 T 65 QTc 427 Conclusion SINUS BRADYCARDIA MINIMAL ST DEPRESSION [0.025+ mV ST DEPRESSION] BORDERLINE ECG UNCONFIRMED REPORT Electronically signed by : Himanshu Escobar MD 05/18/2023 08:31:16
[2023-05-17 17:05] LABS: Appearance,Urine CLEAR (Clear); Bilirubin,Urine Negative (Negative); Blood, Urine Negative (Negative); Color,Urine YELLOW (Yellow); Glucose,Urine (UA) Negative (Negative); Ketones,Urine Negative (Negative); Leukocyte Esterase,Urine TRACE (Negative); Nitrate,Urine Negative (Negative); PH,Urine 6.5 (5.0-8.5); Protein,Urine Negative (Negative); Specific Gravity, Urine 1.015 (1.005-1.030); Urobilinogen,Urine 0.2 EU/dl (0.2)
[2023-05-17 17:31] LABS: WBC,Urine Occasional #/hpf (0-3)
[2023-05-17 17:37] LABS: Lactic Acid 0.9 mmol/L (0.7-2.1)
[2023-05-17 17:38] LABS: Anion Gap 15.6 mEq/L (5-15); Basophils % 0.4 % (0.1-2.0); Blood Urea Nitrogen 15 mg/dl (7-17); Carbon Dioxide 26 mmol/L (22.0-30.0); Chloride 98 mmol/L (98-107); Eosinophils # 0.7 K/mm3 (0.0-0.4); Eosinophils % 10.5 % (0.1-12.0); Hematocrit 37.8 % (37.0-47.0); Hemoglobin 12.5 g/dL (12.2-16.2); Lymphocytes # 1.5 K/mm3 (0.7-4.5); Lymphocytes % 22.6 % (10-50); Mean Corpuscular HGB Conc 33.2 g/dL (31.8-35.4); Mean Corpuscular Hemoglobin 31.6 pg (27.0-31.2); Mean Corpuscular Volume 95.3 fl (81-99); Mean Platelet Volume 7.9 fl (7.4-10.4); Monocytes # 0.5 K/mm3 (0.1-1.0); Monocytes % 7.3 % (1.7-9.3); Neutrophils # 3.8 K/mm3 (1.8-7.8); Neutrophils % 59.2 % (37.0-80.0); Platelet Count 249 K/mm3 (142-424); Potassium 4.6 mmoL/L (3.5-5.1); Red Blood Count 3.97 M/mm3 (4.20-5.40); Red Cell Distribution Width 14.4 % (11.5-17.5); Sodium 135 mmol/L (136-145); White Blood Count 6.5 K/mm3 (4.8-10.8)
[2023-05-17 17:39] LABS: Alanine Aminotransferase 21 U/L (12-78); Albumin Level 4.7 g/dl (3.5-5.0); Albumin/Globulin Ratio 1.6 (1.1-1.8); Alkaline Phosphatase 68 U/L (38-126); Aspartate Amino Transferase 46 U/L (14-36); Bilirubin,Total 0.5 mg/dl (0.2-1.3); Calcium 9.6 mg/dl (8.4-10.2); Creatinine Clearance Estimated 43 mL/min (50-200); Estimated Glomerular Filt Rate 68 ml/min (>60); GFR (African American) 82 ML/MIN (>60); Glucose 98 mg/dl (74-100); Magnesium 1.8 mg/dl (1.6-2.3); Total Protein,Serum 7.7 g/dl (6.3-8.2)
--- NOTE | 2023-05-17 17:52 | PC.NURSE ---
Pt assisted to bed and made comfortable. Provided with pillows for head, arm, and under knees. Visitor remains at BS and call light within reach.
[2023-05-17 18:08] LABS: Thyroid Stimulating Hormone 0.35 uIU/mL (0.465-4.68)
--- NOTE | 2023-05-17 18:10 | PC.NURSE ---
Dr. Romero at BS for pt eval
[2023-05-17 18:18] VITALS: BP 185/67; PULSE 88; RESP 20; TEMP 36.8; O2SAT 98
== END 2023-05-17 18:18 | disposition home or self-care (01) ==
PROVIDERS: Emergency Provider Student in an Organized Health Care Education/Training Program; PCP Internal Medicine Adolescent Medicine
DX: N39.0 Urinary tract infection, site not specified (principal); R00.1 Bradycardia, unspecified; I10 Essential (primary) hypertension; R68.83 Chills (without fever); E78.5 Hyperlipidemia, unspecified; E03.9 Hypothyroidism, unspecified
CPT/HCPCS: 71045; 80053; 81001; 83605; 83735; 84443; 85025; 87040; 93005; 99284

== ENCOUNTER → 2023-06-23 14:14 | Outpatient (POV) | payer MEDICARE, OTHER, SELFPAY | PROVIDERS: PCP Internal Medicine Adolescent Medicine; Visit Provider Dermatology | DX: Z00.00 Encounter for general adult medical examination without abnormal findings (principal) ==

== ENCOUNTER 2023-08-11 14:20 | Outpatient (POV) | payer MEDICARE, OTHER, SELFPAY | END 2023-08-11 23:59 | disposition home or self-care (01) | LOC: SC 14:20 | PROVIDERS: PCP Internal Medicine Adolescent Medicine; Visit Provider Dermatology | DX: Z00.00 Encounter for general adult medical examination without abnormal findings (principal) ==

== ENCOUNTER 2023-11-17 10:00 | Emergency (ER) | payer MEDICARE, OTHER, SELFPAY ==
[2023-11-17] VITALS (11 sets, daily range): BP systolic 172–199; BP diastolic 68–82; PULSE 59–73; RESP 16–18; TEMP 36.5–36.7; O2SAT 95–98; BMI 26.6
--- NOTE | 2023-11-17 10:03 | ED_ITS ---
Discharge Plan Disposition Patient Disposition: Home, Self-Care Condition: Fair Prescriptions Prescriptions: No Action clobetasol 0.05 % solution 1 applic topical PRN Patient Comments: APPLY SOLUTION TOPICALLY TWICE DAILY FOR 14 DAYS hydroxyzine pamoate 25 mg capsule 25 mg PO TID PRN losartan 100 mg tablet 100 mg PO DAILY triamcinolone acetonide 0.1 % cream topical BID Patient Comments: APPLY TOPICALLY TO THE AFFECTED AREA(S) TWICE DAILY fluocinonide 0.05 % solution 1 applic topical BID carbidopa-levodopa 25-100 mg tablet 2 tab PO TID Qty: 180 6RF Rx Instructions: 1.5 tablets p.o. 3 times daily for a week then 2 tablets p.o. 3 times daily omeprazole 40 MG capsule,delayed release(DR/EC) 40 mg PO DAILY levothyroxine 112 MCG tablet 112 mcg PO DAILY metoprolol tartrate 25 MG tablet 25 mg PO BID escitalopram oxalate 10 MG tablet 10 mg PO DAILY acetaminophen 500 MG tablet 500 mg PO Q4HWA Referrals Follow up/Referrals: Himanshu Escobar MD [Primary Care Provider] - See instructions Activity Restrictions/Add. Instructions Additional Instructions/Restrictions: As we discussed today, your workup did not show signs of infection, or acute strain on your heart, UTI, or pneumonia. COVID and flu test were negative as well. It did show that your sodium level is low, 129, which can cause you to feel quite weak and fatigued. This, in conjunction with not eating much, is likely contributing to your fatigue. I recommend you increase your food intake, specifically protein, and make sure you are eating salt in your diet. Too much plain water, especially when you are not eating much, can cause a decrease in your sodium level. You may benefit from seeing a dietitian in the future. Supplement such as boost or other nutritional supplements can help as well and your appetite is low. Your Parkinson's disease likely is playing a role in your symptoms as well. Please follow-up with your neurologist as well as your primary care doctor. Please return with any new or worsening symptoms. Clinical Impressions Clinical Impression: Chronic hyponatremia, Physical deconditioning Instructions Patient Instructions: DI for Muscle Weakness Discharge ED Provider: Misha Morales General Adult HPI General Chief complaint: Weakness Stated complaint: weakness Time Seen by Provider: 11/17/23 10:03 History of Present Illness HPI narrative: Patient reports, and corroboration with family members at bedside, generalized weakness, the absence of any motor motor weakness, gradual in onset over the past 4 days to 1 week. She was recently diagnosed with a URI and prescribed antibiotics as well as antitussive for otitis media. She has completed the course of these antibiotics and has had improvement of symptoms. Patient describes to me flushed feeling in her face and ears, denies any overt pain in her ears, additionally describes some discomfort in her substernal area that has been intermittent, with no acute identifiable exacerbating or alleviating factors, denies palpitations, denies syncope or presyncope, does report nausea however no vomiting. Family members at bedside state patient has had decreased p.o. intake, normally is able to ambulate to bathroom on her own, however is no longer had the energy to do this. Patient reports again that this is due to fatigue, not syncope, presyncope, or motor dysfunction. No overt fevers or chills. She does report pain due to a pressure wound on her bottom. No recent changes in medications or new medications. Denies any respiratory complaints although family members report some concerns in this regard. Patient denies shortness of breath at this time. Please note that above description of symptoms, in this electronic medical record under categorization of recalled from ER triage doctor by RN are reflective of an initial nursing assessment, however, is not reflective of my full history and physical exam that was personally taken and clarified. Consequentially, this preceding description of symptoms, which may include the patient's categorized chief complaint in the EMR, do not reflect my personal clinical impression, and the ultimate description of history of present illness and patient stated complaints should be deferred to this section of the note. Unless stated otherwise or congruent with this section of the note, additional signs, symptoms, or incongruence should be interpreted as inaccurate with my clinical impression. Related Data Home Medications Medication Instructions Recorded Confirmed escitalopram oxalate 10 mg tablet 10 mg PO DAILY anxiety/depression 01/20/21 10/07/23 levothyroxine 112 mcg tablet 112 mcg PO DAILY Hypothyroidism 01/20/21 10/07/23 metoprolol tartrate 25 mg tablet 25 mg PO BID Hypertension 01/20/21 10/07/23 omeprazole 40 mg capsule,delayed 40 mg PO DAILY acid reflux 01/20/21 10/07/23 release acetaminophen 500 mg tablet 500 mg PO Q4HWA pain 02/18/21 10/07/23 losartan 100 mg tablet 100 mg PO DAILY 04/08/23 10/07/23 clobetasol 0.05 % scalp solution 1 applic topical PRN 07/01/23 10/07/23 hydroxyzine pamoate 25 mg capsule 25 mg PO TID PRN 08/03/23 10/07/23 fluocinonide 0.05 % topical 1 applic topical BID 10/07/23 10/07/23 solution triamcinolone acetonide 0.1 % applic topical BID 10/07/23 10/07/23 topical cream Previous Rx's Medication Instructions Recorded carbidopa 25 mg-levodopa 100 mg 2 tab PO TID Parkinsonian syndrome 10/07/23 tablet #180 tabs Allergies Allergy/AdvReac Type Severity Reaction Status Date / Time carbidopa Allergy Rash Verified 10/07/23 13:34 codeine Allergy Rash Verified 10/07/23 13:34 [From Tylenol-Codeine #3] cyclobenzaprine Allergy Unknown Verified 10/07/23 13:34 allergy reaction etodolac Allergy Unknown Verified 10/07/23 13:34 allergy reaction levodopa Allergy Rash Verified 10/07/23 13:34 lisinopril Allergy Rash Verified 10/07/23 13:34 metronidazole Allergy Unknown Verified 10/07/23 13:34 allergy reaction tramadol Allergy Rash Verified 10/07/23 13:34 niacin AdvReac Unknown Verified 10/07/23 13:34 allergy reaction PFSH PFSH Disclaimer: The information contained in this section may have been updated after the patient was seen, as this information can be updated by other users. 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 Bilateral numbness and tingling of arms and legs Suspected underlying neuropathy. Parkinsonian syndrome Gait imbalance present since at least 2020, slowly progressive, associated with tremor for almost a year with worsening of tremors in the last year. Findings on exam suggestive of parkinsonian syndrome, (vascular parkinsonism, Parkinson plus, PSP are in differential diagnosis). Significant improvement of bradykinesia, cogwheel, gait disturbances with carbidopa/levodopa but developed a skin rash. Difficulty tolerating Neuropad above 2 mg. Sciatica Hypertension Thyroid disease Arthritis Osteoporosis Hyperlipidemia Depression Surgical History History of rotator cuff surgery History of radical hysterectomy History of appendectomy History of cataract surgery Family History Other No significant family history Social History Smoking Status: Never smoker second hand exposure: No alcohol intake: never substance use type: denies use current occupational status: retired Travel in the last 8 weeks: None household members: none housing: house current occupational exposures/hazards: No caffeine: No ROS Obtained: Yes other As per HPI Physical Exam General General appearance: alert and in no apparent distress Head Head exam: atraumatic and normocephalic Eye Eye exam: Present normal appearance Neck Neck exam: Present normal inspection Chest Chest inspection: Present normal inspection and symmetric chest wall rise Respiratory Respiratory exam: Present normal lung sounds bilaterally; Absent respiratory distress Cardiovascular Cardiovascular exam: Present regular rate and normal rhythm Abdominal Exam Abdominal exam: Present soft; Absent tenderness Neurological Exam Neurological exam: Present alert and oriented X3 Psychiatric Psychiatric exam: Present normal affect and normal mood Skin Skin exam: Present warm and dry Other Other exam information: Stigmata of Parkinson's disease, including what is reported to be chronic motor disruption. Patient has full strength and sensation in bilateral lower extremities. No focal tenderness to palpation with the exception of wound on left gluteal area that is most consistent with plaque and no acute evidence of cellulitis or pain out of proportion to suggest necrotizing soft tissue infection. Patient is alert and oriented, clinically euvolemic Medical Decision Making Medical Records Medical records reviewed: Yes I reviewed the patient's medical records. Kade Inquiry Pt receiving controlled substance: No Vital Signs: 11/17/23 10:01 11/17/23 10:12 11/17/23 10:30 Temperature 97.7 F Temperature Source Oral Pulse Rate 60 59 L Pulse Rate [Radial] 62 Respiratory Rate 18 Blood Pressure 194/77 H 197/82 H Blood Pressure [Right Arm] 194/77 H Blood Pressure Mean Blood Pressure Mean [Right Arm] 116 Blood Pressure Source Blood Pressure Source [Right Arm] Automatic Cuff Blood Pressure Position Blood Pressure Position [Right Arm] Sitting 02 Sat by Pulse Oximetry 97 96 96 Oxygen Delivery Method Room Air Room Air Room Air 11/17/23 11:00 11/17/23 11:30 11/17/23 12:30 Temperature Temperature Source Pulse Rate 59 L 59 L 60 Pulse Rate [Radial] Respiratory Rate Blood Pressure 199/79 H 192/71 H 180/73 H Blood Pressure [Right Arm] Blood Pressure Mean 80 Blood Pressure Mean [Right Arm] Blood Pressure Source Blood Pressure Source [Right Arm] Blood Pressure Position Blood Pressure Position [Right Arm] 02 Sat by Pulse Oximetry 96 96 95 Oxygen Delivery Method Room Air Room Air Room Air 11/17/23 13:00 11/17/23 13:30 11/17/23 13:34 Temperature Temperature Source Pulse Rate 62 71 69 Pulse Rate [Radial] Respiratory Rate Blood Pressure 184/76 H 189/81 H 175/76 H Blood Pressure [Right Arm] Blood Pressure Mean Blood Pressure Mean [Right Arm] Blood Pressure Source Blood Pressure Source [Right Arm] Blood Pressure Position Blood Pressure Position [Right Arm] 02 Sat by Pulse Oximetry 95 96 96 Oxygen Delivery Method Room Air 11/17/23 14:00 11/17/23 14:59 Temperature 98.0 F Temperature Source Oral Pulse Rate 71 73 Pulse Rate [Radial] Respiratory Rate 16 Blood Pressure 172/68 H 177/79 H Blood Pressure [Right Arm] Blood Pressure Mean Blood Pressure Mean [Right Arm] Blood Pressure Source Automatic Cuff Blood Pressure Source [Right Arm] Blood Pressure Position Sitting Blood Pressure Position [Right Arm] 02 Sat by Pulse Oximetry 96 Oxygen Delivery Method Room Air Lab Data Lab Results 11/17/23 10:10: WBC 5.9, RBC 4.41, Hgb 13.8, Hct 41.8, MCV 94.6, MCH 31.3 H, MCHC 33.1, RDW 14.5, Plt Count 392, MPV 7.5, Neut % (Auto) 55.6, Lymph % (Auto) 33.7, [place] % (Auto) 6.4, Eos % (Auto) 3.7, Baso % (Auto) 0.6, Neut # (Auto) 3.3, Lymph # (Auto) 2.0, [place] # (Auto) 0.4, Eos # (Auto) 0.2, Baso # (Auto) 0.0, S odium 129 L, Potassium 4.4, Chloride 93 L, Carbon Dioxide 31 H, Anion Gap 9.4, BUN 9, Creatinine 0.80, Estimated Creat Clear 41, Estimated GFR 68, Est GFR ( Amer) 82, Glucose 93, Calcium 9.9, Magnesium 2.0, Total Bilirubin 0.6, AST 29, ALT 13, Alkaline Phosphatase 88, Troponin I < 0.01, Total Protein 7.6, Albumin 4.6, Globulin 3.0, Albumin/Globulin Ratio 1.5, TSH 0.81, Free T4 1.19, Urine Color Yellow, Urine Appearance Clear, Urine pH 6.5, Ur Specific [place] 1.010, Urine Protein Negative, Urine Glucose (UA) Negative, Urine Ketones Negative, Urine Blood Negative, Urine Nitrate Negative, Urine Bilirubin Negative, Urine Urobilinogen 0.2, Ur Leukocyte Esterase Negative, Urine RBC None, Urine WBC Occasional, Ur Squamous Epith Cells 3-5, Urine Bacteria Trace 11/17/23 10:50: SARS-CoV-2 (PCR) Not detected, Influenza A Untype (PCR) Not detected, Influenza Type B (PCR) Not detected 11/17/23 13:31: Troponin I < 0.01 11/17/23 10:10 11/17/23 10:10 Orders (Tests/Meds): ED MEDICATIONS Discontinued Medications Generic Name Dose Route Start Last Admin Trade Name Freq PRN Reason Stop Dose Admin Hydroxyzine Pamoate 25 mg 11/17/23 15:03 11/17/23 15:08 Hydroxyzine Pamoate 25mg Capsule PO 11/17/23 15:04 25 mg ONCE ONE Administration Sodium Chloride 1,000 mls @ 999 mls/hr 11/17/23 13:24 11/17/23 13:35 Sod Chlor 0.9% 1000ml Bag IV 11/17/23 14:24 999 mls/hr .Q1H1M ONE Administration ORDERS Category Date Time Status XR chest portable Stat Exams 11/17/23 10:36 Completed CBC w/Auto Diff [Complete Blood Count Auto Diff] Stat Lab 11/17/23 10:10 Completed CMP [Comprehensive Metabolic Panel] Stat Lab 11/17/23 10:10 Completed Free T4 (Free Thyroxine) Stat Lab 11/17/23 10:10 Completed MAG [Magnesium] Stat Lab 11/17/23 10:10 Completed Rapid PCR Covid and Flu A/B Stat Lab 11/17/23 10:50 Completed TSH [Thyroid Stimulating Hormone] Stat Lab 11/17/23 10:10 Completed Troponin I Q3H Lab 11/17/23 10:10 Completed Troponin I Q3H Lab 11/17/23 13:31 Completed Urinalysis and Microscopic Stat Lab 11/17/23 10:10 Completed Urine Culture Stat Micro 11/17/23 10:10 Received Medical Decision Narrative: Patient with history and exam per above presenting for evaluation of generalized weakness, most consistent after detailed history with malaise, fatigue, in the setting of decreased p.o. intake and Parkinson's disease Diagnoses considered include electrolyte abnormality, acute kidney injury, infection, deconditioning, Parkinson's disease, there is no clinical evidence at this time of confusion or focal neurologic deficit to warrant further workup for evaluation of stroke, intracranial hemorrhage, or other acute intracranial pathology ED workup and treatment included: ED MEDICATIONS Discontinued Medications Generic Name Dose Route Start Last Admin Trade Name Freq PRN Reason Stop Dose Admin Hydroxyzine Pamoate 25 mg 11/17/23 15:03 11/17/23 15:08 Hydroxyzine Pamoate 25mg Capsule PO 11/17/23 15:04 25 mg ONCE ONE Administration Sodium Chloride 1,000 mls @ 999 mls/hr 11/17/23 13:24 11/17/23 13:35 Sod Chlor 0.9% 1000ml Bag IV 11/17/23 14:24 999 mls/hr .Q1H1M ONE Administration ORDERS Category Date Time Status XR chest portable Stat Exams 11/17/23 10:36 Completed CBC w/Auto Diff [Complete Blood Count Auto Diff] Stat Lab 11/17/23 10:10 Completed CMP [Comprehensive Metabolic Panel] Stat Lab 11/17/23 10:10 Completed Free T4 (Free Thyroxine) Stat Lab 11/17/23 10:10 Completed MAG [Magnesium] Stat Lab 11/17/23 10:10 Completed Rapid PCR Covid and Flu A/B Stat Lab 11/17/23 10:50 Completed TSH [Thyroid Stimulating Hormone] Stat Lab 11/17/23 10:10 Completed Troponin I Q3H Lab 11/17/23 10:10 Completed Troponin I Q3H Lab 11/17/23 13:31 Completed Urinalysis and Microscopic Stat Lab 11/17/23 10:10 Completed Urine Culture Stat Micro 11/17/23 10:10 Received Labs were independently interpreted by me, significant for sodium 129, urinalysis without convincing evidence of cystitis in the absence of symptoms, no leukocytosis, creatinine within normal limits Imaging was independently visualized and interpreted by me, significant for no acute findings. Please refer to radiology report for full details. Patient reports her symptoms are overall similar upon repeat evaluation. Additional family members present at bedside and I had a lengthy discussion with them as well as patient. I believe, as patient did report to me herself, that many of her symptoms are chronic in nature. Family has noticed decreased p.o. intake and upon further questioning in light of hyponatremia, patient does drink plenty of liquids but does admit to not eating much. I believe her symptoms are multifactorial, likely due to poor nutrition, deconditioning, as well as her known history of Parkinson's disease, which many of her parkinsonian symptoms she describes to me. My impression is that she has appropriate care at home and family reports to me she does have good follow-up arranged. She asked for Vistaril for anxiety while in the emergency department which was administered. Regarding her appetite, she stated at one time to me that she has no motivation to eat, another time she stated she does not feel like she has the strength to lift her hand up to feed herself although she states that another time she is able to drink plenty of liquids and I did not clinically appreciate a degree of dysfunction that would overtly impair her from doing so. I discussed my clinical impression with patient and answered all questions. At this time, the evidence for any other entities in the differential is insufficient to warrant any further testing or ED observation. This was explained to the patient. The patient was advised that persistent or worsening symptoms require further evaluation. I confirmed the patient's understanding of this discussion. Critical Care Critical Care Time Critical Care Time: No
--- NOTE | 2023-11-17 10:36 | XR_ITS ---
FINAL REPORT CLINICAL HISTORY: weakness, feeling of lump in chest causing pain COMPARISON: 05/17/2023 FINDINGS: The heart size is at the upper limits of normal. The mediastinum is normal. There are mild chronic changes in both lungs. There are no pleural effusions. There is no pneumothorax. There is no osseous abnormality. IMPRESSION: Chronic changes without acute cardiopulmonary process Reviewed, Interpreted and Dictated by Agustín Doe MD Transcribed by Catherine Rosenthal Authenticated and [facility]
[2023-11-17 10:42] LABS: Microscopic, Urine URINE MICROSCOPIC (MICROSCOPIC)
--- NOTE | 2023-11-17 10:44 | ECG_ITS ---
APPROVED REPORT Exam: Resting ECG HR:58 bpm ECG Measurements Heart Rate 58 AXES VA 199 P 141 QRSd 98 QRS -3 QT 437 T 122 QTc 434 Conclusion SINUS BRADYCARDIA WITH OCCASIONAL VENTRICULAR PREMATURE COMPLEXES POSSIBLE LATERAL MYOCARDIAL INFARCTION , OF INDETERMINATE AGE [30 ms Q WAVE IN I/aVL/V5/V6] Lateral T wave inversions without reciprocal change Electronically signed by : NIMO BOX, 11/19/2023 19:32:13
[2023-11-17 10:47] LABS: Appearance,Urine CLEAR (Clear); Bilirubin,Urine Negative (Negative); Blood, Urine Negative (Negative); Color,Urine YELLOW (Yellow); Glucose,Urine (UA) Negative (Negative); Ketones,Urine Negative (Negative); Leukocyte Esterase,Urine Negative (Negative); Nitrate,Urine Negative (Negative); PH,Urine 6.5 (5.0-8.5); Protein,Urine Negative (Negative); Urobilinogen,Urine 0.2 EU/dl (0.2)
[2023-11-17 10:52] LABS: Chloride 93 mmol/L (98-107); Potassium 4.4 mmoL/L (3.5-5.1); Sodium 129 mmol/L (136-145)
[2023-11-17 10:54] LABS: Coronavirus 19, PCR Not Detected (NotDetected); Influenza A, PCR Not Detected (NotDetected); Influenza B, PCR Not Detected (NotDetected)
[2023-11-17 10:55] LABS: Alanine Aminotransferase 13 U/L (12-78); Albumin Level 4.6 g/dl (3.5-5.0); Albumin/Globulin Ratio 1.5 (1.1-1.8); Alkaline Phosphatase 88 U/L (38-126); Anion Gap 9.4 mEq/L (5-15); Aspartate Amino Transferase 29 U/L (14-36); Bilirubin,Total 0.6 mg/dl (0.2-1.3); Blood Urea Nitrogen 9 mg/dl (7-17); Calcium 9.9 mg/dl (8.4-10.2); Carbon Dioxide 31 mmol/L (22.0-30.0); Creatinine Clearance Estimated 41 mL/min (50-200); Estimated Glomerular Filt Rate 68 ml/min (>60); GFR (African American) 82 ML/MIN (>60); Glucose 93 mg/dl (74-100); Total Protein,Serum 7.6 g/dl (6.3-8.2)
[2023-11-17 11:01] LABS: Basophils % 0.6 % (0.1-2.0); Eosinophils # 0.2 K/mm3 (0.0-0.4); Eosinophils % 3.7 % (0.1-12.0); Hematocrit 41.8 % (37.0-47.0); Hemoglobin 13.8 g/dL (12.2-16.2); Lymphocytes % 33.7 % (10-50); Mean Corpuscular HGB Conc 33.1 g/dL (31.8-35.4); Mean Corpuscular Hemoglobin 31.3 pg (27.0-31.2); Mean Corpuscular Volume 94.6 fl (81-99); Mean Platelet Volume 7.5 fl (7.4-10.4); Monocytes # 0.4 K/mm3 (0.1-1.0); Monocytes % 6.4 % (1.7-9.3); Neutrophils # 3.3 K/mm3 (1.8-7.8); Neutrophils % 55.6 % (37.0-80.0); Platelet Count 392 K/mm3 (142-424); Red Blood Count 4.41 M/mm3 (4.20-5.40); Red Cell Distribution Width 14.5 % (11.5-17.5); White Blood Count 5.9 K/mm3 (4.8-10.8)
[2023-11-17 11:12] LABS: Free T4 (Free Thyroxine) 1.19 ng/dl (0.78-2.19)
[2023-11-17 11:17] LABS: Troponin I < 0.01 ng/ml (0.00-0.034)
[2023-11-17 11:19] LABS: WBC,Urine Occasional #/hpf (0-3)
[2023-11-17 11:20] LABS: Bacteria,Urine Trace /lpf
[2023-11-17 11:33] LABS: Thyroid Stimulating Hormone 0.81 uIU/mL (0.465-4.68)
--- NOTE | 2023-11-17 12:28 | PC.NURSE ---
PT PROVIDED WITH WATER
[2023-11-17] MEDS: 0.9 % SODIUM CHLORIDE 1000ML 1,000 ML 999 ML IV (13:35)
[2023-11-17 14:13] LABS: Troponin I < 0.01 ng/ml (0.00-0.034)
[2023-11-17] MEDS: hydrOXYzine pamoate 25MG CAPSULE 25 MG PO (15:08)
== END 2023-11-17 15:00 | disposition home or self-care (01) ==
PROVIDERS: Emergency Provider Emergency Medicine; PCP Internal Medicine Adolescent Medicine
DX: E87.1 Hypo-osmolality and hyponatremia (principal); R00.1 Bradycardia, unspecified; R53.83 Other fatigue; B96.89 Other specified bacterial agents as the cause of diseases classified elsewhere; G20.C Parkinsonism, unspecified; E03.9 Hypothyroidism, unspecified; I10 Essential (primary) hypertension; E78.5 Hyperlipidemia, unspecified
CPT/HCPCS: 71045; 80053; 81001; 83735; 84439; 84443; 84484; 85025; 87086; 87636; 93005; 96360; 99284

== ENCOUNTER 2023-11-17 15:33 | Outpatient (POV) | payer MEDICARE, OTHER, SELFPAY | END 2023-11-17 23:59 | disposition home or self-care (01) | LOC: SC 15:33 | PROVIDERS: PCP Internal Medicine Adolescent Medicine; Visit Provider Dermatology | DX: Z00.00 Encounter for general adult medical examination without abnormal findings (principal) ==

== ENCOUNTER 2023-12-19 18:35 | Observation (INO) | payer MEDICARE, OTHER, SELFPAY ==
[2023-12-19] VITALS (10 sets, daily range): BP systolic 162–201; BP diastolic 55–94; PULSE 56–75; RESP 16–18; TEMP 36.6; O2SAT 95–98; BMI 24.9
--- NOTE | 2023-12-19 19:16 | PC.NURSE ---
Updated patient and family on plan of care. No needs or concerns at this time.
[2023-12-19 19:24] LABS: Basophils % 0.3 % (0.1-2.0); Eosinophils # 0.2 K/mm3 (0.0-0.4); Hematocrit 39.5 % (37.0-47.0); Lymphocytes # 1.6 K/mm3 (0.7-4.5); Lymphocytes % 23.5 % (10-50); Mean Corpuscular HGB Conc 32.9 g/dL (31.8-35.4); Mean Corpuscular Hemoglobin 31.1 pg (27.0-31.2); Mean Corpuscular Volume 94.6 fl (81-99); Mean Platelet Volume 7.5 fl (7.4-10.4); Monocytes # 0.5 K/mm3 (0.1-1.0); Monocytes % 7.4 % (1.7-9.3); Neutrophils # 4.5 K/mm3 (1.8-7.8); Neutrophils % 65.8 % (37.0-80.0); Platelet Count 328 K/mm3 (142-424); Red Blood Count 4.18 M/mm3 (4.20-5.40); Red Cell Distribution Width 14.5 % (11.5-17.5); White Blood Count 6.9 K/mm3 (4.8-10.8)
--- NOTE | 2023-12-19 19:29 | ECG_ITS ---
APPROVED REPORT Exam: Resting ECG HR:67 bpm ECG Measurements Heart Rate 67 AXES VA 216 P 68 QRSd 99 QRS 5 QT 415 T 51 QTc 430 Conclusion SINUS RHYTHM WITH FIRST DEGREE AV BLOCK ABNORMAL ECG Electronically signed by : SANDRA FISHER, 12/20/2023 00:53:09
[2023-12-19 19:30] LABS: Alanine Aminotransferase 12 U/L (12-78); Albumin Level 4.5 g/dl (3.5-5.0); Albumin/Globulin Ratio 1.5 (1.1-1.8); Alkaline Phosphatase 81 U/L (38-126); Anion Gap 11.3 mEq/L (5-15); Aspartate Amino Transferase 30 U/L (14-36); Bilirubin,Total 0.5 mg/dl (0.2-1.3); Blood Urea Nitrogen 10 mg/dl (7-17); Calcium 9.7 mg/dl (8.4-10.2); Carbon Dioxide 27 mmol/L (22.0-30.0); Chloride 92 mmol/L (98-107); Creatine Kinase 46 U/L (30-135); Creatinine Clearance Estimated 41 mL/min (50-200); Estimated Glomerular Filt Rate 79 ml/min (>60); GFR (African American) 96 ML/MIN (>60); Globulin 3.1 g/dL (1.3-3.2); Glucose 97 mg/dl (74-100); Magnesium 1.7 mg/dl (1.6-2.3); Potassium 4.3 mmoL/L (3.5-5.1); Sodium 126 mmol/L (136-145); Total Protein,Serum 7.6 g/dl (6.3-8.2)
[2023-12-19 19:31] LABS: Adenovirus,PCR Not Detected (NotDetected); Bordetella Pertussis Not Detected (NotDetected); Chlamydophila Pneumoniae, PCR Not Detected (NotDetected); Coronavirus 19, PCR Not Detected (NotDetected); Coronavirus 229E Not Detected (NotDetected); Coronavirus NL63 Not Detected (NotDetected); Coronavirus OC43 Not Detected (NotDetected); Coronovirus HKU1,PCR Not Detected (NotDetected); Human Metapneumovirus Not Detected (NotDetected); Influenza A, PCR Not Detected (NotDetected); Influenza AH1, 2009 Not Detected (NotDetected); Influenza AH1, PCR Not Detected (NotDetected); Influenza AH3,PCR Not Detected (NotDetected); Influenza B, PCR Not Detected (NotDetected); Lactate Venous 1.4 mmol/L (0.4-2.0); Mycoplasma Pneumoniae, PCR Not Detected (NotDetected); Parainfluenza 1, PCR Not Detected (NotDetected); Parainfluenza 2, PCR Not Detected (NotDetected); Parainfluenza 3, PCR Not Detected (NotDetected); Parainfluenza 4, PCR Not Detected (NotDetected); Respiratory Syncytial Virus Not Detected (NotDetected); Rhinovirus/Enterovirus Not Detected (NotDetected); VBG Base Excess -0.6 mmol/L (-2.4-2.3); VBG HCO3 24.1 mmol/L (23-30); VBG Oxygen Saturation 94.1 % (50-70); VBG PCO2 39.1 mmol/L (35-51); VBG PH 7.41 mmol/L (7.31-7.41); VBG PO2 67.9 mmol/L (28-40); VBG Total CO2 25.3 mmol/L (23-27)
[2023-12-19 19:47] LABS: T4 (Thyroxine) 9.4 ug/dl (5.53-11.0)
[2023-12-19 20:01] LABS: Thyroid Stimulating Hormone 7.65 uIU/mL (0.465-4.68)
[2023-12-19 20:15] LABS: Microscopic, Urine URINE MICROSCOPIC (MICROSCOPIC)
--- NOTE | 2023-12-19 20:18 | [facility].EDGENADL ---
Discharge Plan Disposition Patient Disposition: Admitted Clinical Impressions Clinical Impression: Chronic hyponatremia, General weakness, Decubitus ulcer of sacral area, Urinary frequency Discharge ED Provider: Sharyn Sanchez General Adult HPI General Chief complaint: Urogenital-Female Stated complaint: POSS UTI Time Seen by Provider: 12/19/23 18:52 Mode of Arrival: EMS Source of Information: Patient Limitations: No Limitations Description of Symptoms (Recalled from ER Triage Doc. by RN): urinary symptoms, feels flushed History of Present Illness HPI narrative: This patient is an 88-year-old female with a history of parkinsonian syndrome, peripheral neuropathy, prior thyroidectomy, hypertension, hyperlipidemia, and depression presenting to the emergency department for evaluation with concern for multiple complaints. Patient states that she is having burning when she pees. She also states that she feels flushed and like she is burning all over. She states that her eyes are burning, her ears burning, her throat is burning, and feels like her arms and legs are burning. She notes that this has been going on for a while now, at least a month. She is been following up with neurology who has been progressively increasing carbidopa/levodopa and recently added a new medication as well. No fevers, chest pain, abdominal pain, vomiting, changes bowel movements, or other concerns. Related Data Home Medications Medication Instructions Recorded Confirmed escitalopram oxalate 10 mg tablet 10 mg PO DAILY anxiety/depression 01/20/21 11/23/23 levothyroxine 112 mcg tablet 112 mcg PO DAILY Hypothyroidism 01/20/21 11/23/23 metoprolol tartrate 25 mg tablet 25 mg PO BID Hypertension 01/20/21 11/23/23 omeprazole 40 mg capsule,delayed 40 mg PO DAILY acid reflux 01/20/21 11/23/23 release acetaminophen 500 mg tablet 500 mg PO Q4HWA pain 02/18/21 11/23/23 losartan 100 mg tablet 100 mg PO DAILY 04/08/23 11/23/23 clobetasol 0.05 % scalp solution 1 applic topical PRN 07/01/23 11/23/23 hydroxyzine pamoate 25 mg capsule 25 mg PO TID PRN 08/03/23 11/23/23 fluocinonide 0.05 % topical 1 applic topical BID 10/07/23 11/23/23 solution triamcinolone acetonide 0.1 % applic topical BID 10/07/23 11/23/23 topical cream Previous Rx's Medication Instructions Recorded carbidopa 25 mg-levodopa 100 mg 2 tab PO TID Parkinsonian syndrome 10/07/23 tablet #180 tabs entacapone 200 mg tablet 200 mg PO TID Parkinsonian 11/23/23 syndrome #90 tabs Allergies Allergy/AdvReac Type Severity Reaction Status Date / Time carbidopa Allergy Rash Verified 11/23/23 15:13 codeine Allergy Rash Verified 11/23/23 15:13 [From Tylenol-Codeine #3] cyclobenzaprine Allergy Unknown Verified 11/23/23 15:13 allergy reaction etodolac Allergy Unknown Verified 11/23/23 15:13 allergy reaction levodopa Allergy Rash Verified 11/23/23 15:13 lisinopril Allergy Rash Verified 11/23/23 15:13 metronidazole Allergy Unknown Verified 11/23/23 15:13 allergy reaction tramadol Allergy Rash Verified 11/23/23 15:13 niacin AdvReac Unknown Verified 11/23/23 15:13 allergy reaction PFSH PFSH Disclaimer: The information contained in this section may have been updated after the patient was seen, as this information can be updated by other users. Medical History (Updated 12/20/23 @ 00:23 by Luiz Lock MD) Hypothyroidism Weakness of both lower extremities Weakness of both upper extremities Bilateral numbness and tingling of arms and legs Parkinsonian syndrome Sciatica Hypertension Thyroid disease Arthritis Osteoporosis Hyperlipidemia Depression Surgical History History of rotator cuff surgery History of radical hysterectomy History of appendectomy History of cataract surgery Family History Other No significant family history Social History Smoking Status: Never smoker second hand exposure: No alcohol intake: never substance use type: denies use current occupational status: retired Travel in the last 8 weeks: None household members: none housing: house current occupational exposures/hazards: No caffeine: No ROS Obtained: Yes All systems reviewed & no additional complaints except as documented Physical Exam General General appearance: alert and in no apparent distress Head Head exam: atraumatic and normocephalic Eye Eye exam: Present normal appearance, PERRL and EOMI ENT ENT exam: Present normal exam, normal oropharynx, mucous membranes moist, TM's normal bilaterally and normal external ear exam Neck Neck exam: Present normal inspection, full ROM and trachea midline; Absent tenderness Chest Chest inspection: Present normal inspection and symmetric chest wall rise; Absent tenderness Respiratory Respiratory exam: Present normal lung sounds bilaterally; Absent respiratory distress, wheezes, stridor or accessory muscle use Cardiovascular Cardiovascular exam: Present regular rate and normal rhythm Abdominal Exam Abdominal exam: Present soft; Absent distention, tenderness or guarding Extremities Exam Extremities exam: Present normal inspection, full ROM and normal capillary refill; Absent tenderness or edema Back Exam Back exam: Present normal inspection and full ROM; Absent tenderness Neurological Exam Neurological exam: Present alert, oriented X3, CN II-XII intact and normal gait; Absent motor sensory deficit Psychiatric Psychiatric exam: Present normal affect and normal mood Skin Skin exam: Present warm and dry Medical Decision Making Medical Records Medical records reviewed: Yes I reviewed the patient's medical records. Kade Inquiry Pt receiving controlled substance: No Vital Signs: 12/19/23 18:35 12/19/23 19:03 12/19/23 19:30 Temperature 97.9 F Temperature Source Oral Pulse Rate 65 60 Pulse Rate [Right] 61 Respiratory Rate 16 18 Blood Pressure 162/55 H 173/68 H Blood Pressure [Right Arm] 162/55 H Blood Pressure Mean 60 138 Blood Pressure Mean [Right Arm] 90 Blood Pressure Source Blood Pressure Position 02 Sat by Pulse Oximetry 97 95 96 Oxygen Delivery Method Room Air Room Air Room Air 12/19/23 20:00 12/19/23 20:30 12/19/23 21:00 Temperature Temperature Source Pulse Rate 56 L 62 70 Pulse Rate [Right] Respiratory Rate Blood Pressure 175/67 H 190/94 H 201/90 H Blood Pressure [Right Arm] Blood Pressure Mean 146 130 127 Blood Pressure Mean [Right Arm] Blood Pressure Source Blood Pressure Position 02 Sat by Pulse Oximetry 96 96 97 Oxygen Delivery Method Room Air Room Air Room Air 12/19/23 21:30 12/19/23 22:50 12/19/23 23:00 Temperature Temperature Source Pulse Rate 70 75 75 Pulse Rate [Right] Respiratory Rate Blood Pressure 185/78 H 192/81 H 181/80 H Blood Pressure [Right Arm] Blood Pressure Mean 141 98 113 Blood Pressure Mean [Right Arm] Blood Pressure Source Blood Pressure Position 02 Sat by Pulse Oximetry 97 95 97 Oxygen Delivery Method Room Air Room Air Room Air 12/19/23 23:30 12/20/23 00:18 Temperature 97.9 F Temperature Source Oral Pulse Rate 75 65 Pulse Rate [Right] Respiratory Rate 16 Blood Pressure 179/80 H 179/69 H Blood Pressure [Right Arm] Blood Pressure Mean 113 Blood Pressure Mean [Right Arm] Blood Pressure Source Automatic Cuff Blood Pressure Position Sitting 02 Sat by Pulse Oximetry 98 Oxygen Delivery Method Room Air Room Air Lab Data Lab results reviewed: Yes I reviewed the patient's lab results. Lab Results 12/19/23 18:55: WBC 6.9, RBC 4.18 L, Hgb 13.0, Hct 39.5, MCV 94.6, MCH 31.1, MCHC 32.9, RDW 14.5, Plt Count 328, MPV 7.5, Neut % (Auto) 65.8, Lymph % (Auto) 23.5, [place] % (Auto) 7.4, Eos % (Auto) 3.0, Baso % (Auto) 0.3, Neut # (Auto) 4.5, Lymph # (Auto) 1.6, [place] # (Auto) 0.5, Eos # (Auto) 0.2, Baso # (Auto) 0.0, Sodium 126 L, Potassium 4.3, Chloride 92 L, Carbon Dioxide 27, Anion Gap 11.3, BUN 10, Creatinine 0.70, Estimated Creat Clear 41, Estimated GFR 79, Est GFR ( Amer) 96, Glucose 97, Calcium 9.7, Magnesium 1.7, Total Bilirubin 0.5, AST 30, ALT 12, Alkaline Phosphatase 81, Total Creatine Kinase 46, Total Protein 7.6, Albumin 4.5, Globulin 3.1, Albumin/Globulin Ratio 1.5, Vitamin B12 979 H, TSH 7.65 H, Thyroxine (T4) 9.4 12/19/23 19:26: VBG pH 7.41, VBG pCO2 39.1, VBG pO2 67.9 H, VBG HCO3 24.1, VBG Total CO2 25.3, VBG O2 Saturation 94.1 H, VBG Base Excess -0.6, VBG Lactic Acid 1.4, Chlamy pneumoniae PCR Not detected, Adenovirus (PCR) Not detected, B. pertussis DNA (PCR) Not detected, Coronavirus OC43 (PCR) Not detected, Coronavirus HKU1 (PCR) Not detected, Coronavirus 229E (PCR) Not detected, SARS-CoV-2 (PCR) Not detected, Coronavirus NL63 (PCR) Not detected, Human Metapneumovir PCR Not detected, Influenza A (H1) PCR Not detected, Influ A (H1N1/09) PCR Not detected, Influenza A (H3) PCR Not detected, Influenza Type A (PCR) Not detected, Influenza Type B (PCR) Not detected, M. pneumoniae (PCR) Not detected, Parainfluenza 1 (PCR) Not detected, Parainfluenza 2 (PCR) Not detected, Parainfluenza 3 (PCR) Not detected, Parainfluenza 4 (PCR) Not detected, RSV (PCR) Not detected, Entero/Rhino (PCR) Not detected 12/19/23 20:05: Urine Color Yellow, Urine Appearance Clear, Urine pH 7.5, Ur Specific [place] 1.010, Urine Protein Negative, Urine Glucose (UA) Negative, Urine Ketones Negative, Urine Blood Negative, Urine Nitrate Negative, Urine Bilirubin Negative, Urine Urobilinogen 0.2, Ur Leukocyte Esterase Negative, Urine RBC None, Urine WBC None, Ur Squamous Epith Cells None, Urine Bacteria None 12/19/23 18:55 12/19/23 18:55 Orders (Tests/Meds): ED MEDICATIONS Generic Name Dose Route Start Last Admin Trade Name Freq PRN Reason Stop Dose Admin Acetaminophen 1,000 mg 12/20/23 00:04 Acetaminophen 325mg Tab PO 01/19/24 00:03 Q4HP PRN Fever or Mild Pain (1-3) Carbidopa/Levodopa 2 each 12/20/23 09:00 Carbidopa/Levodopa 25/100mg Tablet PO 01/19/24 08:59 TID SHANEL Citalopram Hydrobromide 20 mg 12/20/23 09:00 Citalopram 20mg Tablet PO 01/19/24 08:59 DAILY SHANEL Heparin Sodium (Porcine) 5,000 unit 12/20/23 00:15 Heparin Sodium 5,000 Unit/Ml Vial SQ 01/19/24 00:14 Q8H SHANEL Hydroxyzine Pamoate 25 mg 12/20/23 00:09 Hydroxyzine Pamoate 25mg Capsule PO 01/19/24 00:08 Q8HP PRN Itching Magnesium Sulfate 2 gm in 50 mls @ 50 mls/hr 12/20/23 00:04 Magnesium Sulfate 2gm/50ml Premix IV 12/20/23 01:03 ONCE ONE Irbesartan 75 mg 12/20/23 09:00 Irbesartan 75mg Tablet PO 01/19/24 08:59 DAILY SHANEL Levothyroxine Sodium 112 mcg 12/20/23 07:00 Levothyroxine 112mcg (0.112mg) Tab PO 01/19/24 06:59 DAILYDM SHANEL Metoprolol Tartrate 25 mg 12/20/23 09:00 Metoprolol Tartrate 50mg Tablet PO 01/19/24 08:59 BID SHANEL Ondansetron HCl 4 mg 12/20/23 00:04 Ondansetron 4mg/2ml Vial IV 01/19/24 00:03 Q8HP PRN Nausea Pantoprazole Sodium 40 mg 12/20/23 09:00 Pantoprazole 40mg Tablet PO 01/19/24 08:59 DAILY SHANEL Sodium Chloride 10 ml 12/19/23 22:35 12/19/23 22:36 Sodium Chloride 0.9% 10ml Syr (Rad Only) IV 01/18/24 22:34 10 ml NEEDED PRN Administration Maintain IV Site Sodium Chloride 10 ml 12/20/23 00:04 Sodium Chloride 0.9% 10ml Flush Syringe IV 01/19/24 00:03 NEEDED PRN Maintain IV Site Discontinued Medications Generic Name Dose Route Start Last Admin Trade Name Freq PRN Reason Stop Dose Admin Acetaminophen 1,000 mg 12/19/23 21:14 12/19/23 21:19 Acetaminophen 1,000mg/100ml Vial IV 12/19/23 21:15 1,000 mg ONCE ONE Administration Sodium Chloride 1,000 mls @ 999 mls/hr 12/19/23 19:57 12/19/23 20:20 Sod Chlor 0.9% 1000ml Bag IV 12/19/23 20:57 999 mls/hr .Q1H1M ONE Administration Iopamidol 100 ml 12/19/23 22:35 12/19/23 22:36 Iopamidol-370 (76%);100ml Bottle IV 12/19/23 22:36 100 ml ONCE ONE Administration Ketorolac Tromethamine 15 mg 12/19/23 21:14 12/19/23 21:19 Ketorolac 30mg/Ml Vial IV 12/19/23 21:15 15 mg ONCE ONE Administration Nystatin 30 gm 12/19/23 21:54 12/19/23 22:00 Nystatin Cream 30gm/Tube TP 12/19/23 21:55 Not Given ONCE ONE Prochlorperazine Edisylate 5 mg 12/19/23 21:14 12/19/23 21:19 Prochlorperazine 10mg/2ml Vial IV 12/19/23 21:15 5 mg ONCE ONE Administration ORDERS Category Date Time Status CT head/brain wo/w con Stat Cat Scan 12/19/23 21:22 Completed Consult to Case Management [CONS] Routine Cons 12/20/23 00:04 Active Basic Metabolic Panel [facility] Lab 12/20/23 06:00 Ordered Basic Metabolic Panel AMLAB Lab 12/21/23 06:00 Ordered Basic Metabolic Panel AMLAB Lab 12/22/23 06:00 Ordered Complete Blood Count Auto Diff Stat Lab 12/19/23 18:55 Completed Comprehensive Metabolic Panel Stat Lab 12/19/23 18:55 Completed Creatine Kinase Stat Lab 12/19/23 18:55 Completed Full Resp Panel w/COVID ([facility]) Routine Lab 12/19/23 19:26 Completed Magnesium AMLAB Lab 12/20/23 06:00 Ordered Magnesium Stat Lab 12/19/23 18:55 Completed Osmolality Routine Lab 12/20/23 00:04 Ordered Sodium,Urine Random Routine Lab 12/20/23 00:04 Ordered T4 (Thyroxine) Stat Lab 12/19/23 18:55 Completed Thyroid Stimulating Hormone Stat Lab 12/19/23 18:55 Completed UA [Urinalysis and Microscopic] Stat Lab 12/19/23 20:05 Completed Vitamin B12 Stat Lab 12/19/23 18:55 Completed Urine Culture Stat Micro 12/19/23 21:54 Received Venous Blood Gas Stat RT 12/19/23 19:26 Completed ECG Data Tracing #1: I reviewed this ECG and interpreted as documented below: Normal sinus rhythm with first-degree AV block. ND interval of 260 ms. Ventricular rate of [address] changes concerning for ischemia. ECG initial impression date: 12/19/23 ECG initial impression time: 20:26 Medical Decision Narrative: In summary, this patient is a 88-year-old female presenting to the Emergency Department for evaluation of burning all over and dysuria. Differential diagnoses considered include but are not limited to cystitis, pyelonephritis, electrolyte derangements, vitamin deficiency, peripheral neuropathy, medication adverse reaction. Ruling out the most morbid conditions drove assessment. It should be noted patient's history includes parkinsonian syndrome which may or may not be at goal therapy. This complicates all aspects of care by increasing patient's risk for morbidity. I reviewed patient's past medical records and noted previous evaluations with downward trending sodium. On exam, the patient is alert and oriented GCS of 15. She has reassuring vital signs on cardiac telemetry and is in no acute distress. Workup included CBC, CMP, VBG, lactic acid, CK, B12, TSH, T4, urinalysis, viral swab, and EKG. EKG obtained is reassuring. Labs obtained that demonstrated further downward trending sodium with a new sodium of 126. This is barely lower than previous. No significant leukocytosis. CK, lactic acid, VBG are normal. Urinalysis is not concerning for infection. She has mildly elevated TSH, but free T4 is reassuring. Overall, I am unsure what at this time what is causing the patient's chronic burning all over. I do feel she would benefit from further follow-up with neurology with regards to this. I feel we have ruled out life-threatening/emergent pathology. Her sodium is trending downward, but this is not acute. She then started to complain of a headache, so CT head with and without contrast were ordered. No acute pathology on the CT scan. Overall, I had a long discussion with the patient and her family and they do not feel comfortable with taking the patient home given her general weakness. Given this, I had an interactive discussion with the hospitalist who admitted the patient for progressive general weakness and hyponatremia. Critical Care Critical Care Time Critical Care Time: No
[2023-12-19 20:20] LABS: Vitamin B12 979 pg/mL (239-931)
[2023-12-19] MEDS: 0.9 % SODIUM CHLORIDE 1000ML 1,000 ML 999 ML IV (20:20)
[2023-12-19 20:21] LABS: Appearance,Urine CLEAR (Clear); Bilirubin,Urine Negative (Negative); Blood, Urine Negative (Negative); Color,Urine YELLOW (Yellow); Glucose,Urine (UA) Negative (Negative); Ketones,Urine Negative (Negative); Leukocyte Esterase,Urine Negative (Negative); Nitrate,Urine Negative (Negative); PH,Urine 7.5 (5.0-8.5); Protein,Urine Negative (Negative); Urobilinogen,Urine 0.2 EU/dl (0.2)
--- NOTE | 2023-12-19 20:33 | PC.NURSE ---
Patient assisted to bedside commode. Family at bedside and updated on plan of care. Patient voicing concerns of pain in her right forearm IV. Removed and new IV started to left hand. NAD, VSS. No needs voiced otherwise
[2023-12-19] MEDS: ACETAMINOPHEN 1,000MG/100ML VIAL 1000 MG IV (21:19)
[2023-12-19] MEDS: PROCHLORPERAZINE 10MG/2ML VIAL 5 MG IV (21:19)
[2023-12-19] MEDS: KETOROLAC 30MG/ML VIAL 15 MG IV (21:19)
--- NOTE | 2023-12-19 21:22 | CT_ITS ---
PROCEDURE INFORMATION: Exam: CT Head Without And With Contrast Exam date and time: 12/19/2023 10:23 PM Age: 88 years old Clinical indication: Other: Worsening chronic head pain; Additional info: Worsening chronic head pain, ear/eye pain TECHNIQUE: Imaging protocol: Computed tomography of the head without and with contrast. Radiation optimization: All CT scans at this facility use at least one of these dose optimization techniques: automated exposure control; mA and/or kV adjustment per patient size (includes targeted exams where dose is matched to clinical indication); or iterative reconstruction. Contrast material: ISOVUE; Contrast volume: 100 ml; Contrast route: IV; COMPARISON: MR HEAD/BRAIN WO CON 02/18/2021 3:33 PM FINDINGS: Brain: There is age related atrophy. No hemorrhage. There is mild to moderate periventricular white matter hypodensity consistent with chronic small vessel disease. No mass effect. No abnormal enhancement. No large vessel occlusive disease. Cerebral ventricles: Ventricular enlargement secondary to parenchymal atrophy. Paranasal sinuses: Visualized sinuses are unremarkable. No fluid levels. Mastoid air cells: Visualized mastoid air cells are well aerated. Orbital cavities: There has been bilateral lens extraction. Bones: Unremarkable. No acute fracture. Soft tissues: Unremarkable. IMPRESSION: No acute intracranial abnormality.
--- NOTE | 2023-12-19 21:34 | PC.NURSE ---
Patient and family asking for update regarding test results. Family voices concerns of why they're waiting so long for things. Concerns addressed by documenting RN. Questions answered and updated. Family and patient content at this time.
--- NOTE | 2023-12-19 22:13 | PC.NURSE ---
Family asking for update on CT scan read. No update per radiology. Documenting RN will call [facility] at 2300. Family agreeable to plan.
[2023-12-19] MEDS: SODIUM CHLORIDE 0.9% 10ML SYR (RAD ONLY) 10 ML IV (22:36)
[2023-12-19] MEDS: IOPAMIDOL-370 (76%);100ML BOTTLE 100 ML IV (22:36)
[2023-12-19] MEDS: NYSTATIN TRIAMC 15 GM TP (22:43)
--- NOTE | 2023-12-19 23:00 | PC.NURSE ---
Called [facility] for update. They state the CT is currently being ready by radiologist and should be released within 10 minutes. Family and patient updated on this as well as the Attending
--- NOTE | 2023-12-19 23:37 | PC.NURSE ---
Attending speaking to family regarding negative CT reads. Family voice frustrations of returning home if patient can't do for herself. Family discussing options with attending. RN to check back.
--- NOTE | 2023-12-20 00:12 | P.HP_ITS ---
History of Present Illness *Admission Date: 12/20/23 *Reason for visit:: Weakness *History of present illness: This is an 88-year-old female that presents to [facility] emergency department with concerns of weakness. She is accompanied by her son. Her past medical history is significant for Parkinson's disease with neurological evaluation on November 23, 2023 by her local neurologist. She also has a chronic history of chronic multilevel polyradiculopathy, low back pain with previous pain pump, multilevel lumbosacral spondylosis, spinal stenosis and neurogenic claudication. She suffered a left hip fracture in 2020 and has identified difficulty with ambulation since then. Family is concerned with progressive weakness. In the ED her sodium is 126 and her creatinine is normal. CT of the head identifies age-related changes with no acute disease. [facility] Medical History Hypothyroidism Weakness of both lower extremities Weakness of both upper extremities Bilateral numbness and tingling of arms and legs Parkinsonian syndrome Sciatica Hypertension Thyroid disease Arthritis Osteoporosis Hyperlipidemia Depression Surgical History (Updated 12/20/23 @ 00:58 by Dinorah Ferguson RN) History of hip surgery History of back surgery History of rotator cuff surgery History of radical hysterectomy History of appendectomy History of cataract surgery Family History Other No significant family history Social History (Updated 12/20/23 @ 00:57 by Dinorah Ferguson RN) Smoking Status: Never smoker second hand exposure: No alcohol intake: never substance use type: denies use current occupational status: retired Travel in the last 8 weeks: None household members: none housing: house current occupational exposures/hazards: No caffeine: No Review of Systems Review of Systems Review of systems:: pertinent systems reviewed and negative unless documented below Meds Home Medications and Allergies Home Medications Medication Instructions Recorded Confirmed Type escitalopram oxalate 10 mg tablet 20 mg PO DAILY anxiety/depression 01/20/21 12/20/23 History levothyroxine 112 mcg tablet 112 mcg PO DAILY Hypothyroidism 01/20/21 12/20/23 History metoprolol tartrate 25 mg tablet 25 mg PO BID Hypertension 01/20/21 12/20/23 History omeprazole 40 mg capsule,delayed 40 mg PO DAILY acid reflux 01/20/21 12/20/23 History release acetaminophen 500 mg tablet 500 mg PO Q4HWA pain 02/18/21 12/20/23 History losartan 100 mg tablet 100 mg PO DAILY 04/08/23 12/20/23 History clobetasol 0.05 % scalp solution 1 applic topical DAILY 07/01/23 12/20/23 History hydroxyzine pamoate 25 mg capsule 25 mg PO TID PRN Anxiety 08/03/23 12/20/23 History fluocinonide 0.05 % topical 1 applic topical BID 10/07/23 12/20/23 History solution triamcinolone acetonide 0.1 % 1 applic topical BID 10/07/23 12/20/23 History topical cream entacapone 200 mg tablet 200 mg PO TID Parkinsonian 11/23/23 12/20/23 Rx syndrome #90 tabs carbidopa 25 mg-levodopa 100 mg 1.5 tab PO TID Parkinsonian 12/20/23 12/20/23 History tablet syndrome meloxicam 7.5 mg tablet 7.5 mg PO BID 12/20/23 12/20/23 History New Prescriptions to Start Prescriptions: Allergies Allergy/AdvReac Type Severity Reaction Status Date / Time carbidopa Allergy Rash Verified 11/23/23 15:13 codeine Allergy Rash Verified 11/23/23 15:13 [From Tylenol-Codeine #3] cyclobenzaprine Allergy Unknown Verified 11/23/23 15:13 allergy reaction etodolac Allergy Unknown Verified 11/23/23 15:13 allergy reaction levodopa Allergy Rash Verified 11/23/23 15:13 lisinopril Allergy Rash Verified 11/23/23 15:13 metronidazole Allergy Unknown Verified 11/23/23 15:13 allergy reaction tramadol Allergy Rash Verified 11/23/23 15:13 niacin AdvReac Unknown Verified 11/23/23 15:13 allergy reaction Exam Data for Last 24 hours Vital signs and Labs for Last 24 Hours: Temp Pulse Resp BP Pulse Ox O2 Del Method 97.9 F 75 18 179/80 H 98 Room Air 12/19/23 18:35 12/19/23 23:30 12/19/23 19:03 12/19/23 23:30 12/19/23 23:30 12/19/23 23:30 Laboratory Results - last 24 hr 12/19/23 18:55: WBC 6.9, RBC 4.18 L, Hgb 13.0, Hct 39.5, MCV 94.6, MCH 31.1, MCHC 32.9, RDW 14.5, Plt Count 328, MPV 7.5, Neut % (Auto) 65.8, Lymph % (Auto) 23.5, Williamson % (Auto) 7.4, Eos % (Auto) 3.0, Baso % (Auto) 0.3, Neut # (Auto) 4.5, Lymph # (Auto) 1.6, Williamson # (Auto) 0.5, Eos # (Auto) 0.2, Baso # (Auto) 0.0, Sodium 126 L, Potassium 4.3, Chloride 92 L, Carbon Dioxide 27, Anion Gap 11.3, BUN 10, Creatinine 0.70, Estimated Creat Clear 41, Estimated GFR 79, Est GFR ( Amer) 96, Glucose 97, Calcium 9.7, Magnesium 1.7, Total Bilirubin 0.5, AST 30, ALT 12, Alkaline Phosphatase 81, Total Creatine Kinase 46, Total Protein 7.6, Albumin 4.5, Globulin 3.1, Albumin/Globulin Ratio 1.5, Vitamin B12 979 H, TSH 7.65 H, Thyroxine (T4) 9.4 12/19/23 19:26: VBG pH 7.41, VBG pCO2 39.1, VBG pO2 67.9 H, VBG HCO3 24.1, VBG Total CO2 25.3, VBG O2 Saturation 94.1 H, VBG Base Excess -0.6, VBG Lactic Acid 1.4, Chlamy pneumoniae PCR Not detected, Adenovirus (PCR) Not detected, B. pertussis DNA (PCR) Not detected, Coronavirus OC43 (PCR) Not detected, Coronavirus HKU1 (PCR) Not detected, Coronavirus 229E (PCR) Not detected, SARS-CoV-2 (PCR) Not detected, Coronavirus NL63 (PCR) Not detected, Human Metapneumovir PCR Not detected, Influenza A (H1) PCR Not detected, Influ A (H1N1 /09) PCR Not detected, Influenza A (H3) PCR Not detected, Influenza Type A (PCR) Not detected, Influenza Type B (PCR) Not detected, M. pneumoniae (PCR) Not detected, Parainfluenza 1 (PCR) Not detected, Parainfluenza 2 (PCR) Not detected, Parainfluenza 3 (PCR) Not detected, Parainfluenza 4 (PCR) Not detected, RSV (PCR) Not detected, Entero/Rhino (PCR) Not detected 12/19/23 20:05: Urine Color Yellow, Urine Appearance Clear, Urine pH 7.5, Ur Specific Tucker 1.010, Urine Protein Negative, Urine Glucose (UA) Negative, Urine Ketones Negative, Urine Blood Negative, Urine Nitrate Negative, Urine Bilirubin Negative, Urine Urobilinogen 0.2, Ur Leukocyte Esterase Negative, Urine RBC None, Urine WBC None, Ur Squamous Epith Cells None, Urine Bacteria None I & O for Last 24 hours: Intake & Output 12/17/23 12/18/23 12/19/23 12/20/23 23:59 23:59 23:59 23:59 Weight 65.771 kg Constitutional Constitutional: no acute distress, chronically ill appearing and cooperative *Routine HEENT Exam Head: Present normocephalic and atraumatic Eye: Present EOMI and PERRL ENT: Present mucous membranes moist *Routine Neck Exam Neck: Present supple; Absent lymphadenopathy *Routine Respiratory Exam Respiratory: Present CTA bilaterally and normal respiratory effort *Routine Cardiovascular Exam Cardiovascular: Present RRR and murmur *Routine Abdominal Exam Abdominal: Present soft and normoactive bowel sounds; Absent tenderness *Routine Rectal Exam Rectal:: deferred *Routine Genitalia Exam Genitalia:: deferred *Routine Extremities Exam Extremities: Present full ROM and pulses intact *Routine Skin Exam Skin: Present intact; Absent rash *Routine Neurological Exam Neurological: Present alert, oriented X3, CN II-XII intact, moving all extremities, vision grossly intact, hearing grossly intact and normal speech; Absent sensory deficit or motor deficit Routine Psychiatric Exam Psychiatric: Present normal affect, normal thought process, cooperative, good insight and good judgment Assessment and Plan *Assessment and plan (1) General weakness: Status: Acute Category: Medical Code(s): R53.1 - Weakness (2) Chronic hyponatremia: Status: Acute Category: Medical Code(s): E87.1 - Hypo-osmolality and hyponatremia (3) Parkinsonian syndrome: Problem Comment: Gait imbalance present since at least 2020, slowly progressive, associated with tremor for almost a year with worsening of tremors in the last year. Findings on exam suggestive of parkinsonian syndrome, (vascular parkinsonism, Parkinson plus, PSP are in differential diagnosis). Significant improvement of bradykinesia, cogwheel, gait disturbances with carbidopa/levodopa but developed a skin rash. Difficulty tolerating Neupro above 2 mg. Status: Chronic Qualifiers: Parkinsonism type: unspecified Qualified Code(s): G20 - Parkinson's disease Category: Medical Code(s): G20 - Parkinson's disease (4) Gait abnormality: Problem Comment: Multifactorial including parkinsonian syndrome, sensory ataxia. Ambulatory with a walker Status: Chronic Category: Medical Code(s): R26.9 - Unspecified abnormalities of gait and mobility (5) Hypertension: Status: Acute Category: Medical Code(s): I10 - Essential (primary) hypertension (6) Hypothyroidism: Status: Acute Category: Medical Code(s): E03.9 - Hypothyroidism, unspecified Plan The patient is an 88-year-old female with Parkinson's disease and chronic neuropathy with weakness who is under the care of a local neurologist. She was hyponatremic in the ED and is currently on no thiazide diuretic therapy at home. Problems addressed as follows: General weakness Chronic hyponatremia Parkinson's disease Gait abnormality Fall precautions PT OT evaluations Case management consult for next site of care Trending electrolytes and creatinine Fluid restriction Urine sodium and osmolality Magnesium replacement Carbidopa?levodopa therapy SSRI therapy Hypertension Routine blood pressure monitoring Beta-ekaterina therapy ARB therapy Hypothyroidism Levothyroxine replacement therapy VTE prophylaxis: Heparin CODE STATUS: Full code POA: Yoan-son
--- NOTE | 2023-12-20 00:17 | PC.NURSE ---
Report given to OTTONIEL Palma
[2023-12-20 00:18] VITALS: BP 179/69; PULSE 65; RESP 16; TEMP 36.6; O2SAT 97
[2023-12-20] MEDS: HEPARIN SODIUM 5,000 UNIT/ML VIAL 5000 UNIT SQ ×3 (00:31→16:24)
[2023-12-20] MEDS: MAGNESIUM SULFATE IN WATER 2 GM/50 ML PIGGYBACK IV (00:32)
[2023-12-20] MEDS: hydrOXYzine pamoate 25MG CAPSULE 25 MG PO (01:08)
[2023-12-20 01:18] VITALS: BP 163/73; PULSE 75; RESP 18; TEMP 36.9; O2SAT 95; BMI 25.3
[2023-12-20 04:00] VITALS: BP 147/77; PULSE 66; RESP 16; TEMP 36.8; O2SAT 93; BMI 25.3
--- NOTE | 2023-12-20 04:58 | PC.NURSE ---
Since arriving to the floor the patient was anxious at first but calmed down after awhile. patient has done well ambulating with her walker with minimal assistance. No other issues
[2023-12-20 07:26] LABS: Blood Urea Nitrogen 9 mg/dl (7-17); Calcium 9.2 mg/dl (8.4-10.2); Carbon Dioxide 27 mmol/L (22.0-30.0); Chloride 94 mmol/L (98-107); Creatinine Clearance Estimated 42 mL/min (50-200); Estimated Glomerular Filt Rate 68 ml/min (>60); GFR (African American) 82 ML/MIN (>60); Glucose 83 mg/dl (74-100); Magnesium 2.3 mg/dl (1.6-2.3); Sodium 127 mmol/L (136-145)
[2023-12-20 07:46] VITALS: BP 156/69; PULSE 68; RESP 16; TEMP 37.2; O2SAT 97
--- NOTE | 2023-12-20 09:21 | PC.NURSE ---
All documentation and care provided by Tete THOMAS was completed under my direct supervision. Darlene Blancas RN
[2023-12-20] MEDS: LEVOTHYROXINE 137MCG (0.137MG) TAB 137 MCG PO (10:21)
[2023-12-20] MEDS: PANTOPRAZOLE 40MG TABLET 40 MG PO (10:21)
[2023-12-20] MEDS: CARBIDOPA/LEVODOPA 25/100MG TABLET 2 EACH PO ×3 (10:21→20:18)
[2023-12-20] MEDS: IRBESARTAN 75MG TABLET 75 MG PO (10:21)
[2023-12-20] MEDS: METOPROLOL TARTRATE 25MG TABLET 25 MG PO ×2 (10:21→20:17)
[2023-12-20] MEDS: SENNOSIDES 8.6MG/DOCUSATE 50MG TABLET 1 TAB PO ×2 (10:33→20:17)
[2023-12-20] MEDS: CITALOPRAM 40MG TABLET 40 MG PO (10:34)
--- NOTE | 2023-12-20 10:34 | EXP.EVENT.NO ---
Advance care planning note: Active diagnosis: Parkinson's, progressive debility, rash, tremor, paresthesia, hypothyroid The patient's active diagnoses are of sufficient risk that focused discussion on advanced care planning is indicated in order to allow the patient to thoughtfully consider personal goals of care; and, if situations arise that prevent the ability to personally give input, to ensure appropriate representation of their personal desires through documentation or informed surrogate decision makers. Discussion: Persons present and participating in discussion: Patient, son, [id number] Discussion: Extensive discussion about patient's current condition his progress over the past 6 months (most specifically past month). Goals moving forward with keeping her at home, no desire to pursue halfway or long-term care at this time. Symptoms that have evolved since making adjustments to medications. It appears the patient has developed worse tremor in the morning, and has developed paresthesia/neuropathy diffusely since initiating and advancing medications. Symptoms most prominent over the past 3 weeks. This correlates to when entacapone was added to her regimen. Side effects of her medications including in a component carbidopa can include neuropathy, constipation, dyskinesia which correlates to what she describes for her symptoms. Discussed medication changes today. Will stop her entacapone. Continue carbidopa/levodopa. Patient otherwise appears fairly well. Does have mild hyponatremia. Discussed this correlation to some of her meds including her SSRI (escitalopram). Appears to have suboptimally controlled hypothyroid, will increase her levothyroxine. 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 Will fluid restrict to 1500 cc today. Family concerned because of patient's symptoms that we cannot put a finger on. Extensive discussion about the positive findings with her labs, clinical stability, and need for time to help identify and address the complaints/symptoms she has at this time. Family seems understanding. Will monitor overnight. Patient still quite functional. Will continue to keep patient full code. Time spent: Total time spent [id number] in education and discussion directly related to advance care plannin minutes Matt Barron 12/20/2023 9:30-10am
[2023-12-20] MEDS: NYSTATIN OINT 100,000 UNITS/GM 15GM TP ×2 (10:35→20:18)
--- NOTE | 2023-12-20 14:29 | HMH.PTEV ---
Physical Therapy Evaluation Rehab PT IP Evaluation Start: 12/20/23 08:00 Freq: ONCE Status: Active Protocol: Document 12/20/23 14:21 HWADE (Rec: 12/20/23 14:29 HWADE [id number]) Subjective/History History History Pt is an 88 year old female that presented to [facility] ED with concerns of increasing weakness. Pt was found to be hyponatremic in the ED and was admitted for IP management and further evaluation. PMH: Parkinson's disease, chronic multilevel polyradiculopathy, low back pain with previous pain pump, multilevel lumbosacral spondylosis, spinal stenosis and neurogenic claudication. Subjective Subjective Pt present seated in bedside chair upon PT arrival, AOX4. Pt denies reports of pain at rest. Pt reports at baseline, she lives at home with her son and DIL in a [facility] w/ 1 MARI. Pt denies reports of recent falls at home. Pt reports she ambulates household distances with a rollator and has been sleeping in a lift chair for ~ 6 months. Pt performed sit to stand transfer with use of a RW and CGA for safety, required increased time and effort. Pt ambulated x50' with RW and CGA for safety. Pt demonstrates wide MADIHA, decreased emily, shuffling step and increased WBing through UE's onto RW. Pt performed sit on EOB to supine with min A. Following evaluation, pt left supine in bed with call light and all needs within reach. New diagnosis of cancer in past 12 No months? Rehab PT IP Eval Objective Appearance Patient Behavior Appropriate,Cooperative Patient Orientation Person,Place,Time,Situation Difficulty following instructions none Speech Pattern Clear,Appropriate Ambulation Patient Able to Ambulate Yes Ambulation Observation IP General Gait Pattern Observation Wide Based Gait,Shuffling Step Ambulation Distance (feet) 50 Ambulation Assistive Device Rolling Walker Ambulation Ability Contact Guard/Hand Hold Balance Ability to Arise Able, uses arms to help Sitting Balance Leans or slides in chair Standing Balance Steady, wide stance Dynamic Sitting Balance Ability Good Dynamic Standing Balance Ability Fair Transfers Bed Transfer Ability Minimal x 1 (25% assist) Chair Transfer Ability Contact Guard/Hand Hold Sit to Stand Chair Transfer Ability Contact Guard/Hand Hold ROM RLE PT ROM Status ABN Abnormal ROM Comment MMT grossly 4-/5 LLE PT ROM Status ABN Abnormal ROM Comment MMT grossly 4-/5 All Extremities PT ROM Status WFL Rehab PT IP prob,goals,plan Problems Date of Evaluation: 12/20/23 PT IP Problems Bed Mobility,Transfers,Gait, Balance,Self care,Safety Rehab Potential Rehab Potential Good Equipment Needs Assistive Devices Rolling / Wheeled Walker Plan PT Intervention Plan Bed Mobility,Transfers,Gait, Balance,Self care,Safety, Therapeutic Exercise PT Plan Frequency Daily Duration LOS Discharge Goals Bed Transfer Ability Contact Guard/Hand Hold Sit to Stand Chair Transfer Ability Supervision/Stand by Ambulation Assistive Device Rolling Walker Ambulation Distance (feet) 100 Discharge Plan PT Discharge Plan At this time, pt would benefit from skilled PT intervention during IP admission to address the identified impairments, reduce risk of falls, prevent functional decline and allow pt to return to [facility]. Once medically stable, recommend pt to d/c home with support from family and HHPT to address remaining impairments. Eval Complexity Eval Charge Codes 41660 - Moderate Complexity PHYSICIAN CERTIFICATION: I certify the specified therapy services for Citlali Marroquin are required, authorized, and reviewed every 30 days.
--- NOTE | 2023-12-20 14:47 | PC.NURSE ---
Pt up to bedside chair for lunch and is tolerating it well at this time.
[2023-12-20 16:00] VITALS: BP 151/74; PULSE 64; RESP 18; TEMP 36.7; O2SAT 93
--- NOTE | 2023-12-20 16:44 | PC.NURSE ---
A&Ox3. Lungs sounds diminished bilaterally, pulses 1+ in lower extremities, murmur noted during auscultation of heart sounds pt states hx of murmur. Dressing applied to stage 1 pressure area on coccyx. Pt ambulating well to and from restroom, standby assist. Pt in bedside chair for meals.
[2023-12-20 18:15] LABS: Chloride 95 mmol/L (98-107); Potassium 4.4 mmoL/L (3.5-5.1); Sodium 125 mmol/L (136-145)
[2023-12-20 18:18] LABS: Anion Gap 9.4 mEq/L (5-15); Blood Urea Nitrogen 12 mg/dl (7-17); Calcium 9.2 mg/dl (8.4-10.2); Carbon Dioxide 25 mmol/L (22.0-30.0); Creatinine Clearance Estimated 42 mL/min (50-200); Estimated Glomerular Filt Rate 68 ml/min (>60); GFR (African American) 82 ML/MIN (>60); Glucose 114 mg/dl (74-100)
[2023-12-20 19:31] VITALS: BP 164/66; PULSE 65; RESP 17; TEMP 36.9; O2SAT 97
[2023-12-21] MEDS: HEPARIN SODIUM 5,000 UNIT/ML VIAL 5000 UNIT SQ ×2 (00:51→08:26)
[2023-12-21 04:00] VITALS: BP 165/79; PULSE 69; RESP 17; TEMP 36.6; O2SAT 94; BMI 25.8
--- NOTE | 2023-12-21 05:12 | PC.NURSE ---
Patient has had a good night. Has been able to rest more tonight than last. Patient has been up to the bathroom with her walker and done great. No other issues this shift. Patient dressing on her coccyx was changed
[2023-12-21] MEDS: LEVOTHYROXINE 137MCG (0.137MG) TAB 137 MCG PO (06:04)
[2023-12-21 06:42] LABS: Basophils % 0.4 % (0.1-2.0); Eosinophils # 0.3 K/mm3 (0.0-0.4); Eosinophils % 4.8 % (0.1-12.0); Hematocrit 36.5 % (37.0-47.0); Hemoglobin 12.1 g/dL (12.2-16.2); Lymphocytes # 1.4 K/mm3 (0.7-4.5); Lymphocytes % 24.7 % (10-50); Mean Corpuscular Hemoglobin 30.9 pg (27.0-31.2); Mean Corpuscular Volume 93.5 fl (81-99); Mean Platelet Volume 7.3 fl (7.4-10.4); Monocytes # 0.4 K/mm3 (0.1-1.0); Monocytes % 7.8 % (1.7-9.3); Neutrophils # 3.5 K/mm3 (1.8-7.8); Neutrophils % 62.3 % (37.0-80.0); Platelet Count 300 K/mm3 (142-424); Red Cell Distribution Width 14.3 % (11.5-17.5); White Blood Count 5.7 K/mm3 (4.8-10.8)
[2023-12-21 06:50] LABS: Albumin Level 3.8 g/dl (3.5-5.0); Albumin/Globulin Ratio 1.5 (1.1-1.8); Alkaline Phosphatase 70 U/L (38-126); Anion Gap 9.2 mEq/L (5-15); Aspartate Amino Transferase 25 U/L (14-36); Bilirubin,Total 0.5 mg/dl (0.2-1.3); Blood Urea Nitrogen 10 mg/dl (7-17); Carbon Dioxide 28 mmol/L (22.0-30.0); Chloride 94 mmol/L (98-107); Creatinine Clearance Estimated 43 mL/min (50-200); Estimated Glomerular Filt Rate 59 ml/min (>60); GFR (African American) 72 ML/MIN (>60); Globulin 2.5 g/dL (1.3-3.2); Glucose 77 mg/dl (74-100); Magnesium 1.9 mg/dl (1.6-2.3); Potassium 4.2 mmoL/L (3.5-5.1); Sodium 127 mmol/L (136-145); Total Protein,Serum 6.3 g/dl (6.3-8.2)
[2023-12-21 07:01] LABS: Alanine Aminotransferase < 4 U/L (12-78)
--- NOTE | 2023-12-21 07:30 | EXP.DC.SUM ---
General Admission date:: 12/20/23 Discharge date: 12/21/23 HPI HPI HPI: This is an 88-year-old female that presents to [facility] emergency department with concerns of weakness. She is accompanied by her son. Her past medical history is significant for Parkinson's disease with neurological evaluation on November 23, 2023 by her local neurologist. She also has a chronic history of chronic multilevel polyradiculopathy, low back pain with previous pain pump, multilevel lumbosacral spondylosis, spinal stenosis and neurogenic claudication. She suffered a left hip fracture in 2020 and has identified difficulty with ambulation since then. Family is concerned with progressive weakness. In the ED her sodium is 126 and her creatinine is normal. CT of the head identifies age-related changes with no acute disease. Hospital Course Hospital Course Hospital Course: The patient is an 88-year-old female with Parkinson's disease and chronic neuropathy with weakness who is under the care of a local neurologist. She was hyponatremic in the ED and is currently on no thiazide diuretic therapy at home. Medication adjustments made during admission. Some improvement in her paresthesia. Sodium stable. Tolerating p.o. intake. Given improvement, meeting criteria to discharge home with home health care family. Problems addressed as follows: General weakness Chronic hyponatremia Parkinson's disease Gait abnormality Paresthesia/neuropathy Extensive discussion about patient's current condition his progress over the past 6 months (most specifically past month). Goals moving forward with keeping her at home, no desire to pursue nursing home or long-term care at this time. Symptoms that have evolved since making adjustments to medications. It appears the patient has developed worse tremor in the morning, and has developed paresthesia/neuropathy diffusely since initiating and advancing medications. Symptoms most prominent over the past 3 weeks. This correlates to when entacapone was added to her regimen. Side effects of her medications including entacapone and carbidopa/levodopa can include neuropathy, constipation, dyskinesia which correlates to what she describes for her symptoms. Discussed medication changes during admission. Will stop her entacapone. Continue carbidopa/levodopa. Patient otherwise appears fairly well. Does have mild hyponatremia. Discussed this correlation to some of her meds including her SSRI (escitalopram). 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 Will fluid restrict to 1500 cc. Patient stated she was feeling much better by morning of discharge. No longer having tingling all over her body. Will continue with medication adjustments as initiated in the hospital. Stable to discharge home. Close follow-up with PCP and neurology. Hypertension Routine blood pressure monitoring during admission. Will resume home regimen at discharge including losartan 100 mg daily and metoprolol 25 mg twice daily Hypothyroidism: TSH elevated at 7.6, will increase levothyroxine to 137 mcg daily. Needs repeat TSH in 6 weeks Total time spent on discharge 35 minutes in counseling, documentation, chart review, and direct care with patient. Exam Data for Last 24 hours Vital signs and Labs for Last 24 Hours: Temp Pulse Resp BP Pulse Ox O2 Del Method 97.9 F 69 17 165/79 H 94 L Room Air 12/21/23 04:00 12/21/23 04:00 12/21/23 04:00 12/21/23 04:00 12/21/23 04:00 12/21/23 06:55 Laboratory Results - last 24 hr 12/20/23 18:00: Sodium 125 L, Potassium 4.4, Chloride 95 L, Carbon Dioxide 25, Anion Gap 9.4, BUN 12 D, Creatinine 0.80, Estimated Creat Clear 42, Estimated GFR 68, Est GFR ( Amer) 82, Glucose 114 H D, Calcium 9.2 12/21/23 05:43: WBC 5.7, RBC 3.90 L, Hgb 12.1 L, Hct 36.5 L, MCV 93.5, MCH 30.9, MCHC 33.0, RDW 14.3, Plt Count 300, MPV 7.3 L, Neut % (Auto) 62.3, Lymph % (Auto) 24.7, Quay % (Auto) 7.8, Eos % (Auto) 4.8, Baso % (Auto) 0.4, Neut # (Auto) 3.5, Lymph # (Auto) 1.4, Quay # (Auto) 0.4, Eos # (Auto) 0.3, Baso # (Auto) 0.0, Sodium 127 L, Potassium 4.2, Chloride 94 L, Carbon Dioxide 28, Anion Gap 9.2, BUN 10, Creatinine 0.90, Estimated Creat Clear 43, Estimated GFR 59, Est GFR ( Amer) 72, Glucose 77 D, Calcium 9.0, Magnesium 1.9 D, Total Bilirubin 0.5, AST 25, ALT < 4 L D, Alkaline Phosphatase 70, Total Protein 6.3, Albumin 3.8 D, Globulin 2.5, Albumin/Globulin Ratio 1.5 I & O for Last 24 hours: Intake & Output 12/18/23 12/19/23 12/20/23 12/21/23 23:59 23:59 23:59 23:59 Intake Total 720 / 1020 300 / 300 Output Total 0 / 0 0 / 0 Balance 720 / 1020 300 / 300 Weight 65.771 kg 67.358 kg 68.583 kg Constitutional Constitutional: no acute distress, average body habitus, chronically ill appearing and cooperative *Routine HEENT Exam Head: Present normocephalic Eye: Present EOMI and PERRL ENT: Present mucous membranes moist *Routine Neck Exam Neck: Present supple; Absent lymphadenopathy *Routine Respiratory Exam Respiratory: Present CTA bilaterally; Absent rhonchi, wheezes or crackles *Routine Cardiovascular Exam Cardiovascular: Present RRR *Routine Abdominal Exam Abdominal: Present soft and normoactive bowel sounds; Absent tenderness *Routine Rectal Exam Patient deferred: visual exam *Routine Exam Patient deferred: external exam *Routine Extremities Exam Extremities: Absent cyanosis, clubbing or edema *Routine Skin Exam Skin: Present intact, pallor and warm; Absent rash *Routine Neurological Exam Neurological: Present alert, oriented X3 and moving all extremities; Absent altered mental status Results Data Completed and Pending Labs on day of discharge: Labs from last 24 hours 12/21/23 12/20/23 05:43 18:00 WBC 5.7 RBC 3.90 L Hgb 12.1 L Hct 36.5 L MCV 93.5 MCH 30.9 MCHC 33.0 RDW 14.3 Plt Count 300 MPV 7.3 L Neut % (Auto) 62.3 Lymph % (Auto) 24.7 Quay % (Auto) 7.8 Eos % (Auto) 4.8 Baso % (Auto) 0.4 Neut # (Auto) 3.5 Lymph # (Auto) 1.4 Quay # (Auto) 0.4 Eos # (Auto) 0.3 Baso # (Auto) 0.0 Sodium 127 L 125 L Potassium 4.2 4.4 Chloride 94 L 95 L Carbon Dioxide 28 25 Anion Gap 9.2 9.4 BUN 10 12 D Creatinine 0.90 0.80 Estimated Creat Clear 43 42 Estimated GFR 59 68 Est GFR ( Amer) 72 82 Glucose 77 D 114 H D Calcium 9.0 9.2 Magnesium 1.9 D Total Bilirubin 0.5 AST 25 ALT < 4 L D Alkaline Phosphatase 70 Total Protein 6.3 Albumin 3.8 D Globulin 2.5 Albumin/Globulin Ratio 1.5 DS: Diagnosis Discharge Diagnosis (1) General weakness: Status: Acute Code(s): R53.1 - Weakness (2) Chronic hyponatremia: Status: Acute Code(s): E87.1 - Hypo-osmolality and hyponatremia (3) Parkinsonian syndrome: Status: Chronic Code(s): G20 - Parkinson's disease Qualifiers: Parkinsonism type: unspecified Qualified Code(s): G20 - Parkinson's disease Problem details: Gait imbalance present since at least 2020, slowly progressive, associated with tremor for almost a year with worsening of tremors in the last year. Findings on exam suggestive of parkinsonian syndrome, (vascular parkinsonism, Parkinson plus, PSP are in differential diagnosis). Significant improvement of bradykinesia, cogwheel, gait disturbances with carbidopa/levodopa but developed a skin rash. Difficulty tolerating Neupro above 2 mg. (4) Gait abnormality: Status: Chronic Code(s): R26.9 - Unspecified abnormalities of gait and mobility Problem details: Multifactorial including parkinsonian syndrome, sensory ataxia. Ambulatory with a walker (5) Hypertension: Status: Acute Code(s): I10 - Essential (primary) hypertension (6) Hypothyroidism: Status: Acute Code(s): E03.9 - Hypothyroidism, unspecified Meds Home Medications and Allergies Home Medications Medication Instructions Recorded Confirmed Type metoprolol tartrate 25 mg tablet 25 mg PO BID 01/20/21 12/20/23 History omeprazole 40 mg capsule,delayed 40 mg PO DAILY 01/20/21 12/20/23 History release acetaminophen 500 mg tablet 500 mg PO Q4HP PRN Mild Pain 02/18/21 12/20/23 History (Scale Score 1-4) losartan 100 mg tablet 100 mg PO DAILY 04/08/23 12/20/23 History hydroxyzine pamoate 25 mg capsule 25 mg PO TIDP PRN Anxiety 08/03/23 12/20/23 History carbidopa 25 mg-levodopa 100 mg 2 tab PO TID 12/20/23 12/20/23 History tablet escitalopram oxalate 20 mg tablet 20 mg PO DAILY 12/20/23 12/20/23 History meloxicam 7.5 mg tablet 7.5 mg PO BID 12/20/23 12/20/23 History levothyroxine 137 mcg tablet 137 mcg PO DAILYDM 30 days #30 tabs 12/21/23 Rx (Synthroid) nystatin 100,000 unit/gram topical 1 applic topical BID 10 days #30 12/21/23 Rx ointment grams New Prescriptions to Start Prescriptions: levothyroxine [Synthroid] Matt Barron James Allergies Allergy/AdvReac Type Severity Reaction Status Date / Time carbidopa Allergy Rash Verified 11/23/23 15:13 codeine Allergy Rash Verified 11/23/23 15:13 [From Tylenol-Codeine #3] cyclobenzaprine Allergy Unknown Verified 11/23/23 15:13 allergy reaction etodolac Allergy Unknown Verified 11/23/23 15:13 allergy reaction levodopa Allergy Rash Verified 11/23/23 15:13 lisinopril Allergy Rash Verified 11/23/23 15:13 metronidazole Allergy Unknown Verified 11/23/23 15:13 allergy reaction tramadol Allergy Rash Verified 11/23/23 15:13 niacin AdvReac Unknown Verified 11/23/23 15:13 allergy reaction Discharge Plan Disposition Patient Disposition: Home Health Service Condition: Fair Discharge Order Discharge Orders: Discharge Order (Routine); Ordered 12/21/23 Ordered By: Matt Barron Follow up Plan Follow up with: Concepción Frias MD [Staff Physician] - Enter time for follow up (please call for appointment) Himanshu Escobar MD [Primary Care Provider] - Enter time for follow up (please call for appointment) Prescriptions/Medication Reconciliation: New levothyroxine [Synthroid] 137 mcg Tablet 137 mcg PO DAILYDM 30 Days Qty: 30 0RF nystatin 100,000 unit/gram Ointment 1 applic topical BID 10 Days Qty: 30 0RF Continued hydroxyzine pamoate 25 mg capsule 25 mg PO TIDP PRN (Reason: Anxiety) losartan 100 mg tablet 100 mg PO DAILY omeprazole 40 MG capsule,delayed release(DR/EC) 40 mg PO DAILY metoprolol tartrate 25 MG tablet 25 mg PO BID acetaminophen 500 MG tablet 500 mg PO Q4HP PRN (Reason: Mild Pain (Scale Score 1-4)) meloxicam 7.5 mg tablet 7.5 mg PO BID carbidopa-levodopa 25-100 mg tablet 2 tab PO TID escitalopram oxalate 20 mg tablet 20 mg PO DAILY Discontinued levothyroxine 112 MCG tablet 112 mcg PO DAILY entacapone 200 mg tablet 200 mg PO TID Rx Instructions: administer at the same time as l-dopa/carbidopa dose 3 times/daily Problem Reconciliation Problems Reviewed?: Yes Patient Discharge Instructions ACTIVITY: Continue current activity DIET: continue same diet Patient Instructions: DI for Muscle Weakness, Hyponatremia-Adult Providers Primary Care Provider: Himanshu Escobar Admit Provider: Luiz Lock Attending Provider: Luiz Lock
[2023-12-21 08:00] VITALS: BP 142/72; PULSE 67; RESP 16; TEMP 36.9; O2SAT 93
[2023-12-21] MEDS: METOPROLOL TARTRATE 25MG TABLET 25 MG PO (08:23)
[2023-12-21] MEDS: CITALOPRAM 40MG TABLET 40 MG PO (08:23)
[2023-12-21] MEDS: PANTOPRAZOLE 40MG TABLET 40 MG PO (08:23)
[2023-12-21] MEDS: CARBIDOPA/LEVODOPA 25/100MG TABLET 2 EACH PO ×2 (08:23→13:00)
[2023-12-21] MEDS: IRBESARTAN 75MG TABLET 75 MG PO (08:23)
[2023-12-21] MEDS: SENNOSIDES 8.6MG/DOCUSATE 50MG TABLET 1 TAB PO (08:23)
[2023-12-21] MEDS: NYSTATIN OINT 100,000 UNITS/GM 15GM TP (08:24)
--- NOTE | 2023-12-21 12:03 | CARE MANAGER ---
Addendum entered by Abbie Marroquin RN 12/22/23 06:55: Cassandra from [facility] called to confirm they will admit patient. Original Note: Patient will require HH services at home and requests [facility]. Information sent.
--- NOTE | 2023-12-22 15:07 | SW/DCPLANNER ---
Follow up phone call w/ this patient: patient's son stated that patient is doing okay at home. Son stated that [facility] reached out regarding start of services and he is fixing to call them back. Patient/son do not have any further needs/questions at this time.
[2023-12-23 02:12] LABS: Osmolality, Urine 220 mOsmol/kg (.)
== END 2023-12-21 14:00 | disposition home health service (06) ==
LOC: ER 18:44 → 2ND 12-20 00:11
PROVIDERS: Internal Medicine Adolescent Medicine; Admitting Provider Family Medicine; Emergency Provider Emergency Medicine; PCP Internal Medicine Adolescent Medicine; Visit Provider Family Medicine
DX: E87.1 Hypo-osmolality and hyponatremia (principal); R26.9 Unspecified abnormalities of gait and mobility; I10 Essential (primary) hypertension; E03.9 Hypothyroidism, unspecified; G20.A1 Parkinson's disease without dyskinesia, without mention of fluctuations; G62.9 Polyneuropathy, unspecified
CPT/HCPCS: 36415; 70470; 80048; 80053; 81001; 82550; 82607; 82803; 83735; 83930; 83935; 84436; 84443; 84540; 85025; 87086; 87581; 87632; 87635; 87798; 93005; 97162; 99285; G0378; J0131; J3475; Q9967

== ENCOUNTER 2024-01-18 09:27 | Emergency (ER) | payer MEDICARE, OTHER, SELFPAY ==
[2024-01-18] VITALS (14 sets, daily range): BP systolic 151–190; BP diastolic 62–85; PULSE 60–75; RESP 16–17; TEMP 36.5–36.7; O2SAT 93–98; BMI 26.2
--- NOTE | 2024-01-18 10:33 | CT_ITS ---
FINAL REPORT TECHNIQUE: Axial imaging of the lumbar spine was obtained without contrast. Reformatted images were also obtained and reviewed.This study was performed with techniques to keep radiation doses as low as reasonably achievable, (ALARA). Individualized dose reduction techniques using automated exposure control or adjustment of mA and/or kV according to the patient's size were employed. CLINICAL HISTORY: fall, midline lumbar spine FINDINGS: There is no acute fracture or subluxation. There is mild S-shaped scoliosis. Severe degenerative disc disease is seen diffusely. The vertebra are normal height. There is no malalignment. Facets are properly aligned. Prevertebral soft tissues unremarkable. IMPRESSION: No acute bony abnormality. Reviewed, Interpreted and Dictated by Val Stubbs MD Transcribed by Catie Lennon Authenticated and [facility]
--- NOTE | 2024-01-18 10:33 | CT_ITS ---
FINAL REPORT TECHNIQUE: Axial imaging of the pelvis was obtained without contrast.This study was performed with techniques to keep radiation doses as low as reasonably achievable, (ALARA). Individualized dose reduction technique using automated exposure control or adjustment of mA and/or kV according to the patient's size were employed. CLINICAL HISTORY: fall, L hip pain after fall 3w FINDINGS: There is no acute fracture or dislocation. Femoral heads are located bilaterally. Soft tissues demonstrate no acute abnormality. Sacral ala are intact. There is post-ORIF of the left proximal femur. Moderate fecal impaction is noted. IMPRESSION: No acute bony abnormality of the pelvis. Reviewed, Interpreted and Dictated by Val Stubbs MD Transcribed by Catie Lennon Authenticated and [facility]
[2024-01-18 10:35] LABS: Microscopic, Urine URINE MICROSCOPIC (MICROSCOPIC)
--- NOTE | 2024-01-18 10:38 | PC.NURSE ---
assisted pt onto bsc for bm and assisted pt back to bed. collected urine sample and hooked pt back up to pw system. Dr King came to bed side.
[2024-01-18 10:50] LABS: Appearance,Urine CLEAR (Clear); Bilirubin,Urine Negative (Negative); Blood, Urine Negative (Negative); Color,Urine YELLOW (Yellow); Glucose,Urine (UA) Negative (Negative); Ketones,Urine Negative (Negative); Leukocyte Esterase,Urine Negative (Negative); Nitrate,Urine Negative (Negative); PH,Urine 7.5 (5.0-8.5); Protein,Urine Negative (Negative); Specific Gravity, Urine 1.015 (1.005-1.030); Urobilinogen,Urine 0.2 EU/dl (0.2)
--- NOTE | 2024-01-18 10:50 | ED_ITS ---
Discharge Plan Disposition Patient Disposition: Home, Self-Care Condition: Good Prescriptions Prescriptions: New prednisone 50 mg tablet 50 mg PO DAILY 5 Days Qty: 5 0RF No Action hydroxyzine pamoate 25 mg capsule 25 mg PO TIDP PRN (Reason: Anxiety) losartan 100 mg tablet 100 mg PO DAILY omeprazole 40 MG capsule,delayed release(DR/EC) 40 mg PO DAILY metoprolol tartrate 25 MG tablet 25 mg PO BID acetaminophen 500 MG tablet 500 mg PO Q4HP PRN (Reason: Mild Pain (Scale Score 1-4)) meloxicam 7.5 mg tablet 7.5 mg PO BID carbidopa-levodopa 25-100 mg tablet 2 tab PO TID escitalopram oxalate 20 mg tablet 20 mg PO DAILY levothyroxine [Synthroid] 137 mcg Tablet 137 mcg PO DAILYDM 30 Days Qty: 30 0RF nystatin 100,000 unit/gram Ointment 1 applic topical BID 10 Days Qty: 30 0RF Referrals Follow up/Referrals: Himanshu Escobar MD [Primary Care Provider] - See instructions Activity Restrictions/Add. Instructions Additional Instructions/Restrictions: You were evaluated in the emergency department today. Please follow-up very closely with your primary care provider for further evaluation and management and for help setting up physical therapy/Occupational Therapy and/for placement as appropriate. Return to the emergency department for new or worsening symptoms. Clinical Impressions Clinical Impression: Physical deconditioning, General weakness Instructions Patient Instructions: DI for Acute Pain -- Adult, DI for Muscle Weakness Discharge ED Provider: Sharyn Sanchez General Adult HPI <Jose King MD - Last Filed: 01/18/24 16:05> General Chief complaint: PAIN Stated complaint: Extremity pain Time Seen by Provider: 01/18/24 09:29 Mode of Arrival: EMS Source of Information: Patient, EMS and Medical Record Limitations: Physical Limitations Description of Symptoms (Recalled from ER Triage Doc. by RN): Pt c/o low back pain that radiates down her LLE to her ankle. States she fell earlier this month and was seen for this fall, no fractures noted. States she has been seeing PT and has been walking with a walker and doing well. Denies any any new falls or trauma. She was able tolerate PT on Thursday and has not walked since. She has been having urinary incontinence at night, but now it happens during the day. She reports she knows when she needs to go to the bathroom but has great dificulty controlling it. Denies any saddle numbness. History of Present Illness HPI narrative: Please note that above description of symptoms, in this electronic medical record under categorization of recalled from ER triage doctor by RN are reflective of an initial nursing assessment, however, is not reflective of my full history and physical exam that was personally taken and clarified. Consequentially, this preceding description of symptoms, which may include the patient's categorized chief complaint in the EMR, do not reflect my personal clinical impression, and the ultimate description of history of present illness and patient stated complaints should be deferred to this section of the note. Unless stated otherwise or congruent with this section of the note, additional signs, symptoms, or incongruence should be interpreted as inaccurate with my clinical impression. Related Data Home Medications Medication Instructions Recorded Confirmed metoprolol tartrate 25 mg tablet 25 mg PO BID 01/20/21 01/13/24 omeprazole 40 mg capsule,delayed 40 mg PO DAILY 01/20/21 01/13/24 release acetaminophen 500 mg tablet 500 mg PO Q4HP PRN Mild Pain 02/18/21 01/13/24 (Scale Score 1-4) losartan 100 mg tablet 100 mg PO DAILY 04/08/23 01/13/24 hydroxyzine pamoate 25 mg capsule 25 mg PO TIDP PRN Anxiety 08/03/23 01/13/24 carbidopa 25 mg-levodopa 100 mg 2 tab PO TID 12/20/23 01/13/24 tablet escitalopram oxalate 20 mg tablet 20 mg PO DAILY 12/20/23 01/13/24 meloxicam 7.5 mg tablet 7.5 mg PO BID 12/20/23 01/13/24 Previous Rx's Medication Instructions Recorded levothyroxine 137 mcg tablet 137 mcg PO DAILYDM 30 days #30 tabs 12/21/23 (Synthroid) nystatin 100,000 unit/gram topical 1 applic topical BID 10 days #30 12/21/23 ointment grams prednisone 50 mg tablet 50 mg PO DAILY 5 days #5 tabs 01/18/24 Allergies Allergy/AdvReac Type Severity Reaction Status Date / Time carbidopa Allergy Rash Verified 01/13/24 15:30 codeine Allergy Rash Verified 01/13/24 15:30 [From Tylenol-Codeine #3] cyclobenzaprine Allergy Unknown Verified 01/13/24 15:30 allergy reaction etodolac Allergy Unknown Verified 01/13/24 15:30 allergy reaction levodopa Allergy Rash Verified 01/13/24 15:30 lisinopril Allergy Rash Verified 01/13/24 15:30 metronidazole Allergy Unknown Verified 01/13/24 15:30 allergy reaction tramadol Allergy Rash Verified 01/13/24 15:30 niacin AdvReac Unknown Verified 01/13/24 15:30 allergy reaction PFSH <Jose King MD - Last Filed: 01/18/24 16:05> FORMERLY [facility] Disclaimer: The information contained in this section may have been updated after the patient was seen, as this information can be updated by other users. 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 Bilateral numbness and tingling of arms and legs Suspected underlying neuropathy. Parkinsonian syndrome Gait imbalance present since at least 2020, slowly progressive, associated with tremor for almost a year with worsening of tremors in the last year. Findings on exam suggestive of parkinsonian syndrome, (vascular parkinsonism, Parkinson plus, PSP are in differential diagnosis). Significant improvement of bradykinesia, cogwheel, gait disturbances with carbidopa/levodopa but developed a skin rash. Difficulty tolerating Neupro above 2 mg. Sciatica Hypertension Thyroid disease Arthritis Osteoporosis Hyperlipidemia Depression Surgical History History of hip surgery History of back surgery History of rotator cuff surgery History of radical hysterectomy History of appendectomy History of cataract surgery Family History Other No significant family history Social History Smoking Status: Never smoker second hand exposure: No alcohol intake: never substance use type: denies use current occupational status: retired Travel in the last 8 weeks: None household members: none housing: house current occupational exposures/hazards: No caffeine: No <Jose King MD - Last Filed: 01/18/24 16:05> ROS Obtained: Yes All systems reviewed & no additional complaints except as documented Physical Exam <Jose King MD - Last Filed: 01/18/24 16:05> General General appearance: alert and in no apparent distress Head Head exam: atraumatic and normocephalic Eye Eye exam: Present normal appearance, PERRL and EOMI ENT ENT exam: Present mucous membranes moist Neck Neck exam: Present normal inspection, full ROM and trachea midline Respiratory Respiratory exam: Absent respiratory distress, wheezes, stridor, accessory muscle use or prolonged expiratory phase Cardiovascular Cardiovascular exam: Present normal rhythm Abdominal Exam Abdominal exam: Present soft; Absent distention, tenderness, guarding, rebound or rigidity Extremities Exam Extremities exam: Present tenderness (Left hip laterally and in groin. Range of motion intact, ambulatory); Absent edema Neurological Exam Neurological exam: Present alert, oriented X3, CN II-XII intact and normal gait; Absent motor sensory deficit Skin Skin exam: Present warm and dry; Absent diaphoresis or erythema Medical Decision Making <Jose King MD - Last Filed: 01/18/24 16:05> Medical Records Medical records reviewed: Yes I reviewed the patient's medical records. Kade Inquiry Pt receiving controlled substance: No Kade was queried for this patient: No Vital Signs: 01/18/24 09:27 01/18/24 10:00 01/18/24 10:31 Temperature 98.1 F Temperature Source Oral Pulse Rate 66 Pulse Rate [Right] 65 Respiratory Rate 17 Blood Pressure 175/79 H 151/70 H Blood Pressure [Right Arm] 182/73 H Blood Pressure Mean 97 Blood Pressure Mean [Right Arm] 109 Blood Pressure Source [Right Arm] Automatic Cuff 02 Sat by Pulse Oximetry 96 94 L Oxygen Delivery Method Room Air Room Air 01/18/24 11:12 01/18/24 11:31 01/18/24 12:00 Temperature Temperature Source Pulse Rate 64 60 61 Pulse Rate [Right] Respiratory Rate Blood Pressure 156/67 H 155/67 H 170/81 H Blood Pressure [Right Arm] Blood Pressure Mean Blood Pressure Mean [Right Arm] Blood Pressure Source [Right Arm] 02 Sat by Pulse Oximetry 96 94 L 95 Oxygen Delivery Method Room Air Room Air Room Air 01/18/24 12:30 01/18/24 13:00 01/18/24 13:31 Temperature Temperature Source Pulse Rate 65 65 Pulse Rate [Right] Respiratory Rate Blood Pressure 168/73 H 181/82 H 190/85 H Blood Pressure [Right Arm] Blood Pressure Mean 89 94 103 Blood Pressure Mean [Right Arm] Blood Pressure Source [Right Arm] 02 Sat by Pulse Oximetry 95 93 L Oxygen Delivery Method 01/18/24 14:49 01/18/24 15:00 01/18/24 15:30 Temperature Temperature Source Pulse Rate 63 65 60 Pulse Rate [Right] Respiratory Rate Blood Pressure 163/65 H 161/69 H 159/65 H Blood Pressure [Right Arm] Blood Pressure Mean Blood Pressure Mean [Right Arm] Blood Pressure Source [Right Arm] 02 Sat by Pulse Oximetry 94 L 95 95 Oxygen Delivery Method Room Air 01/18/24 16:00 01/18/24 16:30 Temperature 97.7 F Temperature Source Oral Pulse Rate 61 75 Pulse Rate [Right] Respiratory Rate 16 Blood Pressure 158/62 H 160/75 H Blood Pressure [Right Arm] Blood Pressure Mean Blood Pressure Mean [Right Arm] Blood Pressure Source [Right Arm] 02 Sat by Pulse Oximetry 95 Oxygen Delivery Method Room Air Lab Data Lab Results 01/18/24 10:20: Urine Color Yellow, Urine Appearance Clear, Urine pH 7.5, Ur Specific Raymond 1.015, Urine Protein Negative, Urine Glucose (UA) Negative, Urine Ketones Negative, Urine Blood Negative, Urine Nitrate Negative, Urine Bilirubin Negative, Urine Urobilinogen 0.2, Ur Leukocyte Esterase Negative, Urine RBC None, Urine WBC Occasional, Ur Squamous Epith Cells Occasional, Urine Bacteria Trace Orders (Tests/Meds): ED MEDICATIONS Discontinued Medications Generic Name Dose Route Start Last Admin Trade Name Freq PRN Reason Stop Dose Admin Ketorolac Tromethamine 15 mg 01/18/24 10:50 01/18/24 11:21 Ketorolac 30mg/Ml Vial IV 01/18/24 10:51 15 mg ONCE ONE Administration Morphine Sulfate 4 mg 01/18/24 10:50 01/18/24 11:21 Morphine 4mg/Ml Syringe IV 01/18/24 10:51 4 mg ONCE ONE Administration Prednisone 40 mg 01/18/24 14:34 01/18/24 14:45 Prednisone 20mg Tab PO 01/18/24 14:35 40 mg ONCE ONE Administration ORDERS Category Date Time Status CT bony pelvis Stat Cat Scan 01/18/24 10:[address] hip LT wo con Stat Cat Scan 01/18/24 11:[address] lumbar spine wo con Stat Cat Scan 01/18/24 10:33 Completed Consult to Case Management [CONS] Routine Cons 01/18/24 14:31 Active UA [Urinalysis and Microscopic] Stat Lab 01/18/24 10:20 Completed Medical Decision Narrative: 88-year-old female history of hypertension, hyperlipidemia, sacral decubitus ulcer, left hip fracture status post arthroplasty, Parkinson's presenting with left lower extremity pain after fall. Patient states that she fell 3 weeks ago. Landed directly on her buttocks. Did not have immediate pain, but over the past few days has had progressively worsening pain. It is lateral aspect of her left hip, as well as groin. History was obtained via conversation with patient. On arrival, patient hemodynamically stable, alert, oriented x4, appropriate, GCS 15, moving all extremities spontaneously, pupils equal and reactive to light. Full physical exam performed and significant for well-appearing 88-year-old female no acute distress. She is able to stand, transfer, ambulated few steps with significant assist, but able to do so. Patient states this is not far from her baseline. Usually has family at home. Neurovascularly intact. No midline back tenderness, range of motion of hip is limited secondary to pain, but intact. Neurovascular intact lower extremities. Differential includes fracture, sprain, dislocation, fracture hardware among others. Patient was given Toradol, morphine for symptomatic management and correction of underlying abnormalities. Workup independently interpreted and significant for no bony abnormalities of the spine, pelvis, or hip. See radiology read for full review of final results. Son at bedside says it is not nearly what she should be able to to go home. Son says he lives with her, unable to help as much is he thinks he should be able to. On reevaluation, patient states that she still having pain, able to transfer and move, but not sure he is able to get her into the house afebrile her home. I tried to explain that patient has no acute injuries and it is likely radiculopathy versus neuropathy causing these pains after fall and now that she is in PT. Both patient and son are unable to decide if they want to try to go home and trial steroids, versus trying inpatient therapy if possible. Case management was contacted and case was discussed at length. Prior to ase management disposition, care handed off to oncoming physician. Transcript disclaimer Much of this encounter note is an electronic senior principal architect spoken language to printed text. Electronic senior principal architect of the spoken language may permit errors. Although I have reviewed the note, some errors may still exist. <Sharyn Sanchez, DO - Last Filed: 01/18/24 23:52> Vital Signs: 01/18/24 09:27 01/18/24 10:00 01/18/24 10:31 Temperature 98.1 F Temperature Source Oral Pulse Rate 66 Pulse Rate [Right] 65 Respiratory Rate 17 Blood Pressure 175/79 H 151/70 H Blood Pressure [Right Arm] 182/73 H Blood Pressure Mean 97 Blood Pressure Mean [Right Arm] 109 Blood Pressure Source [Right Arm] Automatic Cuff 02 Sat by Pulse Oximetry 96 94 L Oxygen Delivery Method Room Air Room Air 01/18/24 11:12 01/18/24 11:31 01/18/24 12:00 Temperature Temperature Source Pulse Rate 64 60 61 Pulse Rate [Right] Respiratory Rate Blood Pressure 156/67 H 155/67 H 170/81 H Blood Pressure [Right Arm] Blood Pressure Mean Blood Pressure Mean [Right Arm] Blood Pressure Source [Right Arm] 02 Sat by Pulse Oximetry 96 94 L 95 Oxygen Delivery Method Room Air Room Air Room Air 01/18/24 12:30 01/18/24 13:00 01/18/24 13:31 Temperature Temperature Source Pulse Rate 65 65 Pulse Rate [Right] Respiratory Rate Blood Pressure 168/73 H 181/82 H 190/85 H Blood Pressure [Right Arm] Blood Pressure Mean 89 94 103 Blood Pressure Mean [Right Arm] Blood Pressure Source [Right Arm] 02 Sat by Pulse Oximetry 95 93 L Oxygen Delivery Method 01/18/24 14:49 01/18/24 15:00 01/18/24 15:30 Temperature Temperature Source Pulse Rate 63 65 60 Pulse Rate [Right] Respiratory Rate Blood Pressure 163/65 H 161/69 H 159/65 H Blood Pressure [Right Arm] Blood Pressure Mean Blood Pressure Mean [Right Arm] Blood Pressure Source [Right Arm] 02 Sat by Pulse Oximetry 94 L 95 95 Oxygen Delivery Method Room Air 01/18/24 16:00 01/18/24 16:30 Temperature 97.7 F Temperature Source Oral Pulse Rate 61 75 Pulse Rate [Right] Respiratory Rate 16 Blood Pressure 158/62 H 160/75 H Blood Pressure [Right Arm] Blood Pressure Mean Blood Pressure Mean [Right Arm] Blood Pressure Source [Right Arm] 02 Sat by Pulse Oximetry 95 Oxygen Delivery Method Room Air Lab Data Lab Results 01/18/24 10:20: Urine Color Yellow, Urine Appearance Clear, Urine pH 7.5, Ur Specific Raymond 1.015, Urine Protein Negative, Urine Glucose (UA) Negative, Urine Ketones Negative, Urine Blood Negative, Urine Nitrate Negative, Urine Bilirubin Negative, Urine Urobilinogen 0.2, Ur Leukocyte Esterase Negative, Urine RBC None, Urine WBC Occasional, Ur Squamous Epith Cells Occasional, Urine Bacteria Trace Orders (Tests/Meds): ED MEDICATIONS Discontinued Medications Generic Name Dose Route Start Last Admin Trade Name Freq PRN Reason Stop Dose Admin Ketorolac Tromethamine 15 mg 01/18/24 10:50 01/18/24 11:21 Ketorolac 30mg/Ml Vial IV 01/18/24 10:51 15 mg ONCE ONE Administration Morphine Sulfate 4 mg 01/18/24 10:50 01/18/24 11:21 Morphine 4mg/Ml Syringe IV 01/18/24 10:51 4 mg ONCE ONE Administration Prednisone 40 mg 01/18/24 14:34 01/18/24 14:45 Prednisone 20mg Tab PO 01/18/24 14:35 40 mg ONCE ONE Administration ORDERS Category Date Time Status CT bony pelvis Stat Cat Scan 01/18/24 10:[address] hip LT wo con Stat Cat Scan 01/18/24 11:[address] lumbar spine wo con Stat Cat Scan 01/18/24 10:33 Completed Consult to Case Management [CONS] Routine Cons 01/18/24 14:31 Active UA [Urinalysis and Microscopic] Stat Lab 01/18/24 10:20 Completed Medical Decision Narrative: 88-year-old female history of hypertension, hyperlipidemia, sacral decubitus ulcer, left hip fracture status post arthroplasty, Parkinson's presenting with left lower extremity pain after fall. Patient states that she fell 3 weeks ago. Landed directly on her buttocks. Did not have immediate pain, but over the past few days has had progressively worsening pain. It is lateral aspect of her left hip, as well as groin. History was obtained via conversation with patient. On arrival, patient hemodynamically stable, alert, oriented x4, appropriate, GCS 15, moving all extremities spontaneously, pupils equal and reactive to light. Full physical exam performed and significant for well-appearing 88-year-old female no acute distress. She is able to stand, transfer, ambulated few steps with significant assist, but able to do so. Patient states this is not far from her baseline. Usually has family at home. Neurovascularly intact. No midline back tenderness, range of motion of hip is limited secondary to pain, but intact. Neurovascular intact lower extremities. Differential includes fracture, sprain, dislocation, fracture hardware among others. Patient was given Toradol, morphine for symptomatic management and correction of underlying abnormalities. Workup independently interpreted and significant for no bony abnormalities of the spine, pelvis, or hip. See radiology read for full review of final results. Son at bedside says it is not nearly what she should be able to to go home. Son says he lives with her, unable to help as much is he thinks he should be able to. On reevaluation, patient states that she still having pain, able to transfer and move, but not sure he is able to get her into the house afebrile her home. I tried to explain that patient has no acute injuries and it is likely radiculopathy versus neuropathy causing these pains after fall and now that she is in PT. Both patient and son are unable to decide if they want to try to go home and trial steroids, versus trying inpatient therapy if possible. Case management was contacted and case was discussed at length. Prior to ase management disposition, care handed off to oncoming physician. Transcript disclaimer Much of this encounter note is an electronic senior principal architect spoken language to printed text. Electronic senior principal architect of the spoken language may permit errors. Although I have reviewed the note, some errors may still exist. DO Daniel: I assumed care of the patient. Care management found potential placement for the patient, but family did not want to pursue at this time as they did not want to have to self-pay. Given this, family ok to take patient home and follow up with PCP. Strict return precautions given Critical Care <Jose King MD - Last Filed: 01/18/24 16:05> Critical Care Time Critical Care Time: No
[2024-01-18] MEDS: KETOROLAC 30MG/ML VIAL 15 MG IV (11:21)
[2024-01-18] MEDS: MORPHINE 4MG/ML SYRINGE 4 MG IV (11:21)
--- NOTE | 2024-01-18 11:33 | CT_ITS ---
FINAL REPORT TECHNIQUE: Thin section axial CT images with coronal and sagittal reformats were performed. This study was performed with techniques to keep radiation doses as low as reasonably achievable (ALARA). Individualized dose reduction techniques using automated exposure control or adjustment of mA and/or kV according to the patient''s size were employed. CLINICAL HISTORY: pain, previous fall, hx hip surgery FINDINGS: There are no fractures. There are no masses or fluid collections. There are no soft tissue abnormalities. There are postoperative changes of the left femur. IMPRESSION: No acute bony abnormality of the left hip. Reviewed, Interpreted and Dictated by Val Stubbs MD Transcribed by Catie Lennon Authenticated and [facility]
--- NOTE | 2024-01-18 11:35 | PC.NURSE ---
pt to ct scan via stretcher
[2024-01-18 11:39] LABS: Bacteria,Urine Trace /lpf; Squamous Epithelial Cell,Urine Occasional #/hpf (0-5); WBC,Urine Occasional #/hpf (0-3)
--- NOTE | 2024-01-18 14:34 | PC.NURSE ---
Called Case Management for a consult for possible placement
[2024-01-18] MEDS: predniSONE 20MG TAB 40 MG PO (14:45)
--- NOTE | 2024-01-18 15:23 | SW/DCPLANNER ---
Addendum entered by Antonieta Ness 01/18/24 16:23: Per Elias hodges/ [facility] patient will require a qualifying stay for both Medicare and [facility]. Original Note: I spoke w/ this patient regarding discharge planning. Patient arrived to ED due to lower extremity pain. After ED workup per nursing staff patient does not meet criteria for hospital admission. Patient is interested in placement at [facility] (or [facility] if [facility] can NOT accept) if insurance will cover. Elias hodges/ [facility] Jacinto is currently reviewing information and insurance policy. Patient stated that if insurance will not cover she prefers to return home w/ family and resume home health services. I will follow up w/ Elias once information is reviewed.
== END 2024-01-18 17:00 | disposition home or self-care (01) ==
PROVIDERS: Emergency Medicine; Emergency Provider Emergency Medicine; PCP Internal Medicine Adolescent Medicine
DX: M54.59 Other low back pain (principal); M79.605 Pain in left leg; R53.1 Weakness; G20.C Parkinsonism, unspecified; I10 Essential (primary) hypertension; E78.5 Hyperlipidemia, unspecified; E03.9 Hypothyroidism, unspecified
CPT/HCPCS: 72131; 72192; 73700; 81001; 96374; 96375; 99285; J1885; J2270

== ENCOUNTER 2024-02-03 17:06 | Outpatient (CLI) | payer MEDICARE, OTHER, SELFPAY ==
[2024-02-03 17:15] LABS: MANUAL DIFFERENTIAL MANUAL DIFFERENTIAL (MANUAL DIFF)
[2024-02-03 17:46] LABS: Basophils % 0.3 % (0.1-2.0); Eosinophils # 0.2 K/mm3 (0.0-0.4); Eosinophils % 3.2 % (0.1-12.0); Hematocrit 36.5 % (37.0-47.0); Hemoglobin 11.8 g/dL (12.2-16.2); Lymphocytes # 1.3 K/mm3 (0.7-4.5); Lymphocytes % 16.7 % (10-50); Mean Corpuscular HGB Conc 32.3 g/dL (31.8-35.4); Mean Corpuscular Hemoglobin 30.6 pg (27.0-31.2); Mean Corpuscular Volume 94.6 fl (81-99); Mean Platelet Volume 7.1 fl (7.4-10.4); Monocytes # 0.4 K/mm3 (0.1-1.0); Monocytes % 5.9 % (1.7-9.3); Neutrophils # 5.6 K/mm3 (1.8-7.8); Neutrophils % 73.9 % (37.0-80.0); Platelet Count 368 K/mm3 (142-424); Red Blood Count 3.86 M/mm3 (4.20-5.40); Red Cell Distribution Width 14.9 % (11.5-17.5); White Blood Count 7.5 K/mm3 (4.8-10.8)
[2024-02-03 18:26] LABS: Albumin Level 4.1 g/dl (3.5-5.0); Albumin/Globulin Ratio 1.5 (1.1-1.8); Alkaline Phosphatase 159 U/L (38-126); Anion Gap 11.8 mEq/L (5-15); Aspartate Amino Transferase 20 U/L (14-36); Bilirubin,Total 0.6 mg/dl (0.2-1.3); Blood Urea Nitrogen 15 mg/dl (7-17); Calcium 9.6 mg/dl (8.4-10.2); Carbon Dioxide 27 mmol/L (22.0-30.0); Chloride 101 mmol/L (98-107); Estimated Glomerular Filt Rate 79 ml/min (>60); GFR (African American) 96 ML/MIN (>60); Globulin 2.7 g/dL (1.3-3.2); Glucose 93 mg/dl (74-100); Potassium 4.8 mmoL/L (3.5-5.1); Sodium 135 mmol/L (136-145); Total Protein,Serum 6.8 g/dl (6.3-8.2)
[2024-02-03 18:28] LABS: Alanine Aminotransferase < 4 U/L (12-78)
[2024-02-03 18:31] LABS: Free T4 (Free Thyroxine) 1.92 ng/dl (0.78-2.19)
[2024-02-03 18:41] LABS: Eosinophils % 3 % (0-3); Lymphocytes % 22 % (10-50); Monocytes % 4 % (2-9); Neutrophils % 71 % (42-76); Platelet Estimate Normal; RBC Morphology Normal; Total Cells Counted 100
[2024-02-03 18:56] LABS: Thyroid Stimulating Hormone < 0.02 uIU/mL (0.465-4.68)
[2024-02-03 19:55] LABS: Iron 47 ug/dL (37-170)
[2024-02-03 20:07] LABS: Total Iron Binding Capacity 245 ug/dL (265-497)
[2024-02-03 20:32] LABS: Ferritin 115 ng/ml (11.1-264)
== END 2024-02-03 23:59 | disposition home or self-care (01) ==
PROVIDERS: PCP Internal Medicine Adolescent Medicine; Visit Provider Specialist
DX: E87.1 Hypo-osmolality and hyponatremia (principal); R53.1 Weakness; E83.10 Disorder of iron metabolism, unspecified
CPT/HCPCS: 36415; 80053; 82728; 83540; 83550; 84439; 84443; 85007; 85014; 85018; 85048; 85049

== ENCOUNTER 2024-02-13 11:07 | Observation (INO) | payer MEDICARE, OTHER, SELFPAY ==
[2024-02-13] VITALS (11 sets, daily range): BP systolic 153–199; BP diastolic 65–89; PULSE 58–67; RESP 16–20; TEMP 36.5–36.8; O2SAT 95–98; BMI 25.7
--- NOTE | 2024-02-13 11:09 | PC.NURSE ---
pt at ct
--- NOTE | 2024-02-13 11:15 | XR_ITS ---
PROCEDURE INFORMATION: Exam: XR Right Femur Exam date and time: 02/13/2024 11:45 AM Age: 88 years old Clinical indication: Pain; Hip; Right; Additional info: R hip pain, unable to bear weight TECHNIQUE: Imaging protocol: Radiologic exam of the right femur. Views: 2 views. COMPARISON: [facility] XR HIP RT 2-3V W/PELVIS 02/13/2024 11:45 AM FINDINGS: Bones/joints: Generalized osteopenia. Mild-moderate patellofemoral degenerative changes. Soft tissues: Unremarkable. IMPRESSION: No evidence of acute osseous injury.
--- NOTE | 2024-02-13 11:15 | CT_ITS ---
PROCEDURE INFORMATION: Exam: CT Pelvis Without Contrast; Skeletal Exam date and time: 02/13/2024 12:54 PM Age: 88 years old Clinical indication: Hip pain; Right hip; Additional info: Hip/abdominal pain, constipation TECHNIQUE: Imaging protocol: Computed tomography of the pelvis without contrast. Exam focused on the skeleton. Radiation optimization: All CT scans at this facility use at least one of these dose optimization techniques: automated exposure control; mA and/or kV adjustment per patient size (includes targeted exams where dose is matched to clinical indication); or iterative reconstruction. COMPARISON: CT BONY PELVIS 01/18/2024 11:39 AM FINDINGS: Bones/joints: Nondisplaced fracture traversing the left sacral ala. Findings new since 01/18/2024. Soft tissues: Moderate stool burden Other findings: Regions of sclerosis compatible with healing. IMPRESSION: Nondisplaced fracture traversing the left sacral ala. Findings new since 01/18/2024.
--- NOTE | 2024-02-13 11:15 | CT_ITS ---
PROCEDURE INFORMATION: Exam: CT Lumbar Spine Without Contrast Exam date and time: 02/13/2024 12:51 PM Age: 88 years old Clinical indication: Low back pain; Additional info: Pain rad to R hip/down R leg TECHNIQUE: Imaging protocol: Computed tomography of the lumbar spine without contrast. Radiation optimization: All CT scans at this facility use at least one of these dose optimization techniques: automated exposure control; mA and/or kV adjustment per patient size (includes targeted exams where dose is matched to clinical indication); or iterative reconstruction. COMPARISON: CT LUMBAR SPINE WO CON 01/18/2024 11:36 AM FINDINGS: Bones/joints: Lumbar spondylosis with multilevel disc degeneration. Nondisplaced fracture left lateral aspect of the sacrum. Faint sclerosis suggesting subacute time frame. Clinically correlate. Soft tissues: Unremarkable. Other findings: Findings demonstrated on series 1001 image number [id number]. IMPRESSION: Nondisplaced fracture left lateral aspect of the sacrum. Faint sclerosis suggesting subacute time frame. Clinically correlate.
--- NOTE | 2024-02-13 11:15 | CT_ITS ---
PROCEDURE INFORMATION: Exam: CT Abdomen And Pelvis With Contrast Exam date and time: 02/13/2024 12:57 PM Age: 88 years old Clinical indication: Constipation; Additional info: Abdominal pain, constipation TECHNIQUE: Imaging protocol: Computed tomography of the abdomen and pelvis with contrast. Radiation optimization: All CT scans at this facility use at least one of these dose optimization techniques: automated exposure control; mA and/or kV adjustment per patient size (includes targeted exams where dose is matched to clinical indication); or iterative reconstruction. Contrast material: ISOVUE; Contrast volume: 75 ml; Contrast route: IV; COMPARISON: CT BONY PELVIS 02/13/2024 12:54 PM FINDINGS: Lungs: Bibasilar atelectasis versus parenchymal scarring. Liver: The liver is unremarkable. Gallbladder and biliary ducts: Gallbladder unremarkable Pancreas: Pancreas unremarkable Spleen: Splenic granulomas Adrenal glands: Adrenal glands unremarkable. Kidneys and ureters: No hydronephrosis. Stomach and bowel: Moderate stool burden. Colonic diverticulosis. Mild colonic wall thickening with mild pericolonic edema and inflamed diverticulum involving the sigmoid colon compatible with acute diverticulitis. Appendix: No evidence of appendicitis. Intraperitoneal space: Unremarkable. No free air. No significant fluid collection. Vasculature: Moderate regions of atherosclerotic vascular calcification are demonstrated within the abdominal aorta and common iliac arteries. Lymph nodes: Unremarkable. No enlarged lymph nodes. Urinary bladder: Unremarkable as visualized. Reproductive: Unremarkable as visualized. Bones/joints: Lumbar spondylosis with multilevel disc degeneration. sclerosis involving the left lateral aspect of the sacrum. Findings suggestive of previous insufficiency fracture. Incomplete visualization of fixation device left femur. Soft tissues: Fat filled inguinal hernias. IMPRESSION: 1. Moderate stool burden. 2. Colonic diverticulosis. Mild colonic wall thickening with mild pericolonic edema and inflamed diverticulum involving the sigmoid colon compatible with acute diverticulitis.
--- NOTE | 2024-02-13 11:15 | XR_ITS ---
PROCEDURE INFORMATION: Exam: XR Right Knee Exam date and time: 02/13/2024 11:45 AM Age: 88 years old Clinical indication: Pain; Knee; Right; Additional info: R hip pain, unable to bear weight TECHNIQUE: Imaging protocol: Radiologic exam of the right knee. Views: 3 views. 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 Changes of chondrocalcinosis demonstrated involving the medial knee compartment Soft tissues: Soft tissue swelling in the expected region of the lateral collateral ligament. IMPRESSION: 1. 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 2. No evidence of acute osseous injury.
--- NOTE | 2024-02-13 11:15 | XR_ITS ---
PROCEDURE INFORMATION: Exam: XR Right Hip Exam date and time: 02/13/2024 11:45 AM Age: 88 years old Clinical indication: Hip pain; Right hip; Additional info: R hip pain, unable to bear weight TECHNIQUE: Imaging protocol: Radiologic exam of the right hip. Views: 2 or 3 views hip with pelvis when performed. COMPARISON: CR XR HIP RT 2-3V W/PELVIS 02/13/2024 11:45 AM FINDINGS: Bones/joints: Generalized osteopenia.Incomplete visualization of fixation device. Left proximal femur. Soft tissues: Unremarkable. IMPRESSION: No evidence of acute osseous injury.
--- NOTE | 2024-02-13 11:17 | PC.NURSE ---
pt back to room
--- NOTE | 2024-02-13 11:22 | ED_ITS ---
Discharge Plan Disposition Chief Complaint: PAIN Clinical Impressions Clinical Impression: Sciatica, Diverticulitis, Closed sacral fracture, Immobility Discharge ED Provider: Sharyn Sanchez General Adult HPI General Chief complaint: PAIN Stated complaint: pain Time Seen by Provider: 02/13/24 11:14 History of Present Illness HPI narrative: This patient is an 88-year-old female with a history of hypertension, hyperlipidemia, thyroid disease, arthritis, deconditioning, Parkinson's disease, and multiple recent ED evaluations with concern for difficulty with ADLs at home presenting with concern for right hip pain radiating down her right leg. She arrives by EMS who noted that that was her main complaint, however she also did complain to them of upper abdominal pain, nausea, and constipation. No fevers. No recent falls or traumatic injuries, but she did fall at the beginning of December. She notes that she has been evaluated here since then. She states that the pain is in her right hip going down all the way to her right foot and it is her entire right leg. No numbness, tingling, or other concerns. She states she is not able to walk secondary to the pain. Her son takes care of her at home. On medical record review, case management saw the patient previously with concern for potential placement, however family declined. I reviewed patient's past medical records and noted her evaluation at the end of December, at which point CT scans were obtained for similar pain on the left side. They were negative at that time. Of note, the son states that she has had injections done on the left side of her dipilumab previously, and they recently switched to the right. He is not sure if this is related. Related Data Home Medications Medication Instructions Recorded Confirmed metoprolol tartrate 25 mg tablet 25 mg PO BID 01/20/21 02/03/24 omeprazole 40 mg capsule,delayed 40 mg PO DAILY 01/20/21 02/03/24 release acetaminophen 500 mg tablet 500 mg PO Q4HP PRN Mild Pain 02/18/21 02/03/24 (Scale Score 1-4) losartan 100 mg tablet 100 mg PO DAILY 04/08/23 02/03/24 hydroxyzine pamoate 25 mg capsule 25 mg PO TIDP PRN Anxiety 08/03/23 02/03/24 carbidopa 25 mg-levodopa 100 mg 2 tab PO TID 12/20/23 02/03/24 tablet escitalopram oxalate 20 mg tablet 20 mg PO DAILY 12/20/23 02/03/24 meloxicam 7.5 mg tablet 7.5 mg PO BID 12/20/23 02/03/24 diazepam 2 mg tablet 2 mg PO DAILY 02/03/24 02/03/24 dupilumab 300 mg/2 mL subcutaneous mg SQ 02/03/24 02/03/24 pen injector ([employer]) gabapentin 100 mg capsule 100 mg feeding tube TID 02/03/24 02/03/24 Previous Rx's Medication Instructions Recorded levothyroxine 137 mcg tablet 137 mcg PO DAILYDM 30 days #30 tabs 12/21/23 (Synthroid) nystatin 100,000 unit/gram topical 1 applic topical BID 10 days #30 12/21/23 ointment grams Allergies Allergy/AdvReac Type Severity Reaction Status Date / Time carbidopa Allergy Rash Verified 02/03/24 15:49 codeine Allergy Rash Verified 02/03/24 15:49 [From Tylenol-Codeine #3] cyclobenzaprine Allergy Unknown Verified 02/03/24 15:49 allergy reaction etodolac Allergy Unknown Verified 02/03/24 15:49 allergy reaction levodopa Allergy Rash Verified 02/03/24 15:49 lisinopril Allergy Rash Verified 02/03/24 15:49 metronidazole Allergy Unknown Verified 02/03/24 15:49 allergy reaction tramadol Allergy Rash Verified 02/03/24 15:49 niacin AdvReac Unknown Verified 02/03/24 15:49 allergy reaction PFSH PFSH Disclaimer: The information contained in this section may have been updated after the patient was seen, as this information can be updated by other users. Medical History Hypothyroidism Weakness of both lower extremities Weakness of both upper extremities Bilateral numbness and tingling of arms and legs Parkinsonian syndrome Sciatica Hypertension Thyroid disease Arthritis Osteoporosis Hyperlipidemia Depression Surgical History History of hip surgery History of back surgery History of rotator cuff surgery History of radical hysterectomy History of appendectomy History of cataract surgery Family History Other No significant family history Social History (Reviewed 02/13/24 @ 11:24 by DARLEEN Bentley Smoking Status: Never smoker second hand exposure: No alcohol intake: never substance use type: denies use current occupational status: retired Travel in the last 8 weeks: None household members: none housing: house current occupational exposures/hazards: No caffeine: No ROS Obtained: Yes All systems reviewed & no additional complaints except as documented Physical Exam General General appearance: alert and in no apparent distress Head Head exam: atraumatic and normocephalic Eye Eye exam: Present normal appearance, PERRL and EOMI ENT ENT exam: Present normal exam, normal oropharynx, mucous membranes moist and normal external ear exam Neck Neck exam: Present normal inspection, full ROM and trachea midline; Absent tenderness Chest Chest inspection: Present normal inspection and symmetric chest wall rise; Absent tenderness Respiratory Respiratory exam: Present normal lung sounds bilaterally; Absent respiratory distress, wheezes, stridor or accessory muscle use Cardiovascular Cardiovascular exam: Present regular rate and normal rhythm Abdominal Exam Abdominal exam: Present soft and tenderness (Epigastric); Absent distention, guarding, rebound or rigidity Extremities Exam Extremities exam: Present normal inspection, full ROM and normal capillary refill; Absent tenderness or edema Back Exam Back exam: Present full ROM and straight leg raise (R); Absent tenderness Neurological Exam Neurological exam: Present alert, oriented X3 and CN II-XII intact; Absent motor sensory deficit Psychiatric Psychiatric exam: Present normal affect and normal mood Skin Skin exam: Present warm and dry Medical Decision Making Medical Records Medical records reviewed: Yes I reviewed the patient's medical records. Kade Inquiry Pt receiving controlled substance: No Vital Signs: 02/13/24 11:11 02/13/24 11:30 02/13/24 11:33 Temperature 98.2 F Temperature Source Oral Pulse Rate 62 62 Pulse Rate [Left Radial] 67 Respiratory Rate 18 Blood Pressure 153/65 H 166/75 H Blood Pressure [Right Arm] 199/86 H Blood Pressure Mean Blood Pressure Mean [Right Arm] 123 02 Sat by Pulse Oximetry 96 96 95 Oxygen Delivery Method Room Air Room Air 02/13/24 12:30 02/13/24 13:30 02/13/24 14:01 Temperature Temperature Source Pulse Rate 58 L 64 66 Pulse Rate [Left Radial] Respiratory Rate Blood Pressure 156/68 H 170/75 H 180/84 H Blood Pressure [Right Arm] Blood Pressure Mean 90 Blood Pressure Mean [Right Arm] 02 Sat by Pulse Oximetry 97 95 95 Oxygen Delivery Method Room Air Lab Data Lab results reviewed: Yes I reviewed the patient's lab results. Lab Results 02/13/24 11:30: WBC 5.0, RBC 3.42 L, Hgb 12.1 L, Hct 33.1 L, MCV 97.0, MCH 35.5 H, MCHC 36.6 H, RDW 15.0, Plt Count 411, MPV 7.9, Neut % (Auto) 65.6, Lymph % (Auto) 19.2, [place] % (Auto) 7.6, Eos % (Auto) 6.7, Baso % (Auto) 0.9, Neut # (Auto) 3.3, Lymph # (Auto) 1.0, [place] # (Auto) 0.4, Eos # (Auto) 0.3, Baso # (Auto) 0.0, Sodium 137, Potassium 4.0, Chloride 101, Carbon Dioxide 29, Anion Gap 11.0, BUN 15, Creatinine 0.80, Estimated Creat Clear 41, Estimated GFR 68, Est GFR ( Amer) 82, Glucose 123 H, Calcium 9.8, Total Bilirubin 0.4, AST 25, ALT 14, Alkaline Phosphatase 127 H, Troponin I < 0.01, Total Protein 7.3, Albumin 4.0, Globulin 3.3 H, Albumin/Globulin Ratio 1.2, Lipase 89 02/13/24 13:10: Urine Color Yellow, Urine Appearance Clear, Urine pH 6.5, Ur Specific Whick 1.010, Urine Protein Negative, Urine Glucose (UA) Negative, Urine Ketones Negative, Urine Blood Negative, Urine Nitrate Negative, Urine Bilirubin Negative, Urine Urobilinogen 0.2, Ur Leukocyte Esterase Negative, Urine WBC Occasional, Urine Bacteria Trace 02/13/24 11:30 02/13/24 11:30 Orders (Tests/Meds): ED MEDICATIONS Discontinued Medications Generic Name Dose Route Start Last Admin Trade Name Asher PRN Reason Stop Dose Admin Acetaminophen 1,000 mg 02/13/24 11:16 02/13/24 11:44 Acetaminophen 500mg Tab PO 02/13/24 11:17 Not Given ONCE ONE Acetaminophen 1,000 mg 02/13/24 11:39 02/13/24 11:45 Acetaminophen 1,000mg/100ml Vial IV 02/13/24 11:40 1,000 mg ONCE ONE Administration Iopamidol 75 ml 02/13/24 12:53 02/13/24 12:53 Iopamidol-370 (76%);100ml Bottle IV 02/13/24 12:54 75 ml ONCE ONE Administration Ketorolac Tromethamine 15 mg 02/13/24 11:16 02/13/24 11:29 Ketorolac 30mg/Ml Vial IV 02/13/24 11:17 15 mg ONCE ONE Administration Lidocaine 1 each 02/13/24 11:16 02/13/24 11:29 Lidocaine 5% Transdermal Patch TP 02/13/24 11:17 1 each ONCE ONE Administration Methocarbamol 500 mg 02/13/24 11:17 02/13/24 11:29 Methocarbamol 500mg Tablet PO 02/13/24 11:18 500 mg ONCE ONE Administration Sodium Chloride 10 ml 02/13/24 12:53 02/13/24 12:53 Sodium Chloride 0.9% 10ml Syr (Rad Only) IV 02/13/24 12:54 10 ml ONCE ONE Administration ORDERS Category Date Time Status CT abdomen pelvis w con Stat Cat Scan 02/13/24 11:[address] bony pelvis Stat Cat Scan 02/13/24 11:[address] lumbar spine wo con Stat Cat Scan 02/13/24 11:15 Completed XR femur RT 2V Stat Exams 02/13/24 11:15 Completed XR hip RT 2-3V w/pelvis Stat Exams 02/13/24 11:15 Completed XR knee RT 3V Stat Exams 02/13/24 11:15 Completed Complete Blood Count Auto Diff Stat Lab 02/13/24 11:30 Completed Comprehensive Metabolic Panel Stat Lab 02/13/24 11:30 Completed Lipase Stat Lab 02/13/24 11:30 Completed Trop I [Troponin I] Stat Lab 02/13/24 11:30 Completed Troponin I Q3H Lab 02/13/24 14:15 Ordered Troponin I Q3H Lab 02/13/24 17:15 Ordered UA [Urinalysis and Microscopic] Stat Lab 02/13/24 13:10 Completed ECG Data Tracing #1: I reviewed this ECG and interpreted as documented below: Normal sinus rhythm with a ventricular rate of [address] changes concerning for ischemia. Motion artifact noted. Normal intervals. ECG initial impression date: 02/13/24 ECG initial impression time: 11:25 Medical Decision Narrative: In summary, this patient is a 88 year old female presenting to the Emergency Department for evaluation of right hip pain radiating down to her right foot as well as abdominal pain. Differential diagnoses considered include but are not limited to pancreatitis, ACS, constipation, GERD, sciatica, lumbar disc herniation, pain from injections, hip fracture, strain/sprain. Ruling out the most morbid conditions drove assessment. It should be noted patient's history includes chronic hyponatremia, deconditioning, chronic pain, Parkinson's disease, thyroid disease, hypertension, and hyperlipidemia which may or may not be at goal therapy. This complicates all aspects of care by increasing patient's risk for morbidity. I reviewed patient's past medical records and noted previous evaluations as per HPI. On exam, the patient is resting comfortably in bed in no acute distress. She is hypertensive but otherwise vitals are reassuring on cardiac telemetry. She is neurologically intact. She has mild epigastric tenderness to palpation otherwise, abdominal exam is benign. She is neurovascularly intact in her right lower extremity but does have pain with straight leg raise. Workup included CBC, CMP, lipase, troponin, EKG, CT abdomen pelvis with IV contrast, CT lumbar spine, CT bony pelvis, and x-rays of the right hip, pelvis, femur, and knee. She was given IV Toradol, oral Tylenol, oral Robaxin, and a topical Lidoderm patch for symptomatic improvement of pain. I independently interpreted CT scans and x-rays prior to the radiologist read and noted concerns for diverticulitis. Radiology also notes that the patient has a subacute sacral fracture that is nondisplaced. This was not present on read from prior imaging, however patient denies any falls since the beginning of December. please see their read for final interpretation. Labs were obtained that demonstrated no acutely concerning abnormalities with negative troponin, no concerns for urinary tract infection, and no significant leukocytosis. On reassessment, patient had good improvement after administration of interventions above, but she states she still cannot walk. Complicating the patient's care is the fact the family does not feel comfortable with discharge. Given this in combination with diverticulitis and subacute sacral fracture, I had an interactive discussion with the hospitalist for further evaluation and management, as I feel the patient would likely benefit from admission. Dr. Barron agreed to admit the patient under observation status. Patient was admitted in stable condition Critical Care Critical Care Time Critical Care Time: No
--- NOTE | 2024-02-13 11:23 | ECG_ITS ---
APPROVED REPORT Exam: Resting ECG HR:63 bpm ECG Measurements Heart Rate 63 AXES DE 204 P 74 QRSd 102 QRS -3 QT 427 T 62 QTc 435 Conclusion SINUS RHYTHM Motion artifact No acute ST changes Electronically signed by : SANDRA FISHER, 02/13/2024 14:17:00
[2024-02-13] MEDS: LIDOCAINE 5% TRANSDERMAL PATCH 1 EACH TP (11:29)
[2024-02-13] MEDS: METHOCARBAMOL 500MG TABLET 500 MG PO (11:29)
[2024-02-13] MEDS: KETOROLAC 30MG/ML VIAL 15 MG IV ×2 (11:29→20:12)
[2024-02-13 11:38] LABS: Basophils % 0.9 % (0.1-2.0); Eosinophils # 0.3 K/mm3 (0.0-0.4); Eosinophils % 6.7 % (0.1-12.0); Hematocrit 33.1 % (37.0-47.0); Hemoglobin 12.1 g/dL (12.2-16.2); Lymphocytes % 19.2 % (10-50); Mean Corpuscular HGB Conc 36.6 g/dL (31.8-35.4); Mean Corpuscular Hemoglobin 35.5 pg (27.0-31.2); Mean Platelet Volume 7.9 fl (7.4-10.4); Monocytes # 0.4 K/mm3 (0.1-1.0); Monocytes % 7.6 % (1.7-9.3); Neutrophils # 3.3 K/mm3 (1.8-7.8); Neutrophils % 65.6 % (37.0-80.0); Platelet Count 411 K/mm3 (142-424); Red Blood Count 3.42 M/mm3 (4.20-5.40)
[2024-02-13] MEDS: ACETAMINOPHEN 1,000MG/100ML VIAL 1000 MG IV (11:45)
[2024-02-13 11:46] LABS: Chloride 101 mmol/L (98-107); Sodium 137 mmol/L (136-145)
[2024-02-13 11:48] LABS: Blood Urea Nitrogen 15 mg/dl (7-17); Creatinine Clearance Estimated 41 mL/min (50-200); Estimated Glomerular Filt Rate 68 ml/min (>60); GFR (African American) 82 ML/MIN (>60)
[2024-02-13 11:49] LABS: Alanine Aminotransferase 14 U/L (12-78); Albumin/Globulin Ratio 1.2 (1.1-1.8); Alkaline Phosphatase 127 U/L (38-126); Aspartate Amino Transferase 25 U/L (14-36); Bilirubin,Total 0.4 mg/dl (0.2-1.3); Calcium 9.8 mg/dl (8.4-10.2); Carbon Dioxide 29 mmol/L (22.0-30.0); Globulin 3.3 g/dL (1.3-3.2); Glucose 123 mg/dl (74-100); Lipase 89 U/L (23-300); Total Protein,Serum 7.3 g/dl (6.3-8.2)
[2024-02-13 12:15] LABS: Troponin I < 0.01 ng/ml (0.00-0.034)
--- NOTE | 2024-02-13 12:15 | PC.NURSE ---
pt is resting in the bed no needs at this time call light in reach
[2024-02-13] MEDS: SODIUM CHLORIDE 0.9% 10ML SYR (RAD ONLY) 10 ML IV (12:53)
[2024-02-13] MEDS: IOPAMIDOL-370 (76%);100ML BOTTLE 75 ML IV (12:53)
--- NOTE | 2024-02-13 13:41 | PC.NURSE ---
pt gone to ct
--- NOTE | 2024-02-13 13:43 | PC.NURSE ---
pt asleep at this time call light in reach visitor at bs
[2024-02-13 13:53] LABS: Microscopic, Urine URINE MICROSCOPIC (MICROSCOPIC)
[2024-02-13 13:59] LABS: Appearance,Urine CLEAR (Clear); Bilirubin,Urine Negative (Negative); Blood, Urine Negative (Negative); Color,Urine YELLOW (Yellow); Glucose,Urine (UA) Negative (Negative); Ketones,Urine Negative (Negative); Leukocyte Esterase,Urine Negative (Negative); Nitrate,Urine Negative (Negative); PH,Urine 6.5 (5.0-8.5); Protein,Urine Negative (Negative); Urobilinogen,Urine 0.2 EU/dl (0.2)
[2024-02-13 14:07] LABS: Bacteria,Urine Trace /lpf; WBC,Urine Occasional #/hpf (0-3)
--- NOTE | 2024-02-13 14:31 | PC.NURSE ---
HS notified of pt admission
--- NOTE | 2024-02-13 14:42 | EXP.HP ---
History of Present Illness *Admission Date: 02/13/24 *Reason for visit:: diverticulitis *History of present illness: Ms. Marroquin is an 88-year-old female with history of parkinsonism, diverticulosis, who presented to the ER with worsening weakness over the past month. Was admitted 2 months ago for similar condition. On presentation today, she complains of pain in her lower back. It is transferred around her abdomen over the past few days. Denies any fever, nausea, vomiting. Due to weakness and pain, workup initiated in the ER. Found to have cervical fracture. Last fall was the beginning of December. Labs nonactionable. CT of abdomen pelvis with finding of sigmoid diverticulitis. Medicine consulted for admission and further treatment with evaluation for possible placement. On arrival to the floor, patient appears at baseline health. Complaining of abdominal pain. Stable on room air. Responded well to Toradol with improvement in pain. Initiated on Levaquin upon arrival to the floor for sigmoid diverticulitis. Worsening deconditioning. Family having a hard time caring for her at home. Has been seen previously by case management with concern for placement need, ultimately family elected to take her home. [facility] Disclaimer: The information contained in this section may have been updated after the patient was seen, as this information can be updated by other users. Medical History Hypothyroidism Weakness of both lower extremities Weakness of both upper extremities Bilateral numbness and tingling of arms and legs Parkinsonian syndrome Sciatica Hypertension Thyroid disease Arthritis Osteoporosis Hyperlipidemia Depression Surgical History History of hip surgery History of back surgery History of rotator cuff surgery History of radical hysterectomy History of appendectomy History of cataract surgery Family History Other No significant family history Social History Smoking Status: Never smoker second hand exposure: No alcohol intake: never substance use type: denies use current occupational status: retired Travel in the last 8 weeks: None household members: none housing: house current occupational exposures/hazards: No caffeine: No Review of Systems Review of Systems Review of systems (narrative): 14 point review of systems performed, pertinent positives and negatives as per HPI Meds Home Medications and Allergies Home Medications Medication Instructions Recorded Confirmed Type metoprolol tartrate 25 mg tablet 25 mg PO BID 01/20/21 02/13/24 History omeprazole 40 mg capsule,delayed 40 mg PO DAILY 01/20/21 02/13/24 History release acetaminophen 500 mg tablet 500 mg PO Q4HP PRN Mild Pain 02/18/21 02/13/24 History (Scale Score 1-4) losartan 100 mg tablet 100 mg PO DAILY 04/08/23 02/13/24 History hydroxyzine pamoate 25 mg capsule 25 mg PO TIDP PRN Anxiety 08/03/23 02/13/24 History carbidopa 25 mg-levodopa 100 mg 2 tab PO TID 12/20/23 02/13/24 History tablet meloxicam 7.5 mg tablet 7.5 mg PO BID 12/20/23 02/13/24 History levothyroxine 137 mcg tablet 137 mcg PO DAILYDM 30 days #30 tabs 12/21/23 02/13/24 Rx (Synthroid) nystatin 100,000 unit/gram topical 1 applic topical BID 10 days #30 12/21/23 02/13/24 Rx ointment grams diazepam 2 mg tablet 2 mg PO DAILY 02/03/24 02/13/24 History gabapentin 100 mg capsule 100 mg feeding tube TID 02/03/24 02/13/24 History dupilumab 300 mg/2 mL subcutaneous 300 mg SQ NEEDED PRN excema 02/13/24 02/13/24 History pen injector (Dupixent) escitalopram oxalate 20 mg tablet 10 mg PO DAILY 02/13/24 02/13/24 History gabapentin 100 mg capsule 100 mg PO DAILY 02/13/24 02/13/24 History New Prescriptions to Start Prescriptions: Allergies Allergy/AdvReac Type Severity Reaction Status Date / Time codeine Allergy Rash Verified 02/03/24 15:49 [From Tylenol-Codeine #3] cyclobenzaprine Allergy Unknown Verified 02/03/24 15:49 allergy reaction etodolac Allergy Unknown Verified 02/03/24 15:49 allergy reaction lisinopril Allergy Rash Verified 02/03/24 15:49 metronidazole Allergy Unknown Verified 02/03/24 15:49 allergy reaction tramadol Allergy Rash Verified 02/03/24 15:49 adhesive tape AdvReac Rash Verified 02/13/24 16:06 niacin AdvReac Unknown Verified 02/03/24 15:49 allergy reaction Exam Data for Last 24 hours Vital signs and Labs for Last 24 Hours: Temp Pulse Resp BP Pulse Ox O2 Del Method 98.2 F 66 18 180/84 H 95 Room Air 02/13/24 11:11 02/13/24 14:01 02/13/24 11:11 02/13/24 14:01 02/13/24 14:01 02/13/24 12:30 Laboratory Results - last 24 hr 02/13/24 11:30: WBC 5.0, RBC 3.42 L, Hgb 12.1 L, Hct 33.1 L, MCV 97.0, MCH 35.5 H, MCHC 36.6 H, RDW 15.0, Plt Count 411, MPV 7.9, Neut % (Auto) 65.6, Lymph % (Auto) 19.2, [place] % (Auto) 7.6, Eos % (Auto) 6.7, Baso % (Auto) 0.9, Neut # (Auto) 3.3, Lymph # (Auto) 1.0, [place] # (Auto) 0.4, Eos # (Auto) 0.3, Baso # (Auto) 0.0, Sodium 137, Potassium 4.0, Chloride 101, Carbon Dioxide 29, Anion Gap 11.0, BUN 15, Creatinine 0.80, Estimated Creat Clear 41, Estimated GFR 68, Est GFR ( Amer) 82, Glucose 123 H, Calcium 9.8, Total Bilirubin 0.4, AST 25, ALT 14, Alkaline Phosphatase 127 H, Troponin I < 0.01, Total Protein 7.3, Albumin 4.0, Globulin 3.3 H, Albumin/Globulin Ratio 1.2, Lipase 89 02/13/24 13:10: Urine Color Yellow, Urine Appearance Clear, Urine pH 6.5, Ur Specific [place] 1.010, Urine Protein Negative, Urine Glucose (UA) Negative, Urine Ketones Negative, Urine Blood Negative, Urine Nitrate Negative, Urine Bilirubin Negative, Urine Urobilinogen 0.2, Ur Leukocyte Esterase Negative, Urine WBC Occasional, Urine Bacteria Trace I & O for Last 24 hours: Intake & Output 02/10/24 02/11/24 02/12/24 02/13/24 23:59 23:59 23:59 23:59 Weight 65.771 kg Constitutional Constitutional: no acute distress, chronically ill appearing and cooperative *Routine HEENT Exam Head: Present normocephalic and atraumatic Eye: Present EOMI and PERRL ENT: Present mucous membranes moist *Routine Neck Exam Neck: Present supple; Absent lymphadenopathy *Routine Respiratory Exam Respiratory: Present CTA bilaterally and normal respiratory effort *Routine Cardiovascular Exam Cardiovascular: Present RRR and murmur *Routine Abdominal Exam Abdominal: Present soft, normoactive bowel sounds and tenderness (Nonfocal, no rebound or guarding); Absent distended *Routine Rectal Exam Rectal:: deferred *Routine Genitalia Exam Genitalia:: deferred *Routine Extremities Exam Extremities: Present full ROM and pulses intact *Routine Skin Exam Skin: Present intact; Absent rash *Routine Neurological Exam Neurological: Present alert, oriented X3, CN II-XII intact, moving all extremities, vision grossly intact, hearing grossly intact and normal speech; Absent sensory deficit or motor deficit Routine Psychiatric Exam Psychiatric: Present normal affect, normal thought process, cooperative, good insight and good judgment Assessment and Plan *Assessment and plan (1) Diverticulitis: Status: Acute Category: Medical Code(s): K57.92 - Diverticulitis of intestine, part unspecified, without perforation or abscess without bleeding (2) Closed sacral fracture: Status: Acute Category: Medical Code(s): S32.10XA - Unspecified fracture of sacrum, initial encounter for closed fracture (3) Immobility: Status: Acute Category: Medical Code(s): Z74.09 - Other reduced mobility (4) Sciatica: Status: Acute Category: Medical Code(s): M54.30 - Sciatica, unspecified side (5) General weakness: Status: Acute Category: Medical Code(s): R53.1 - Weakness (6) Parkinsonian syndrome: Problem Comment: Symptomatic improvement with carbidopa/levodopa Status: Chronic Qualifiers: Parkinsonism type: unspecified Qualified Code(s): G20.C - Parkinsonism, unspecified Category: Medical Code(s): G20.C - Parkinsonism, unspecified (7) Hypothyroidism: Status: Acute Category: Medical Code(s): E03.9 - Hypothyroidism, unspecified Plan The patient is an 88-year-old female with Parkinson's disease and chronic neuropathy with weakness who is under the care of a local neurologist. Presented with persistent weakness. Having some abdominal pain. CT imaging showing diverticulitis in the sigmoid region. Discussed case with ER physician, request admission for management given weakness and difficulty going home. I agreed to admit for observation. Will administer IV levofloxacin for ease of transitioning to oral therapy. Labs normal with normal white count, normal kidney function and electrolytes. Problems addressed as follows: Diverticulitis Per my review of CT, has some inflammation and edema around sigmoid colon. Transition to clear liquid diet. Monitor for improvement. White cell count normal at 5; repeat CBC, CMP, magnesium ordered for the morning. Initiate Levaquin 750 mg daily for total 7 days 15 mg Toradol as needed every 6 hours for breakthrough pain General weakness Parkinson's disease Gait abnormality Paresthesia/neuropathy -Worsening weakness, progressive over the past 6 to 8 months. Extensive discussion last visit about her condition and need for possible placement. -Family would like to pursue evaluation for rehab - Continue carbidopa/levodopa. Continue Valium 2 mg daily as needed for anxiety Continue Lexapro 10 mg daily Continue gabapentin 100 mg 3 times a day Hypertension Routine blood pressure monitoring during admission. Will resume home regimen at discharge including losartan 100 mg daily and metoprolol 25 mg twice daily Hypothyroidism: TSH less than 0.02 earlier this month. Repeat TSH 0.04. Continue levothyroxine 137 mcg daily DNR Clear liquid diet Prophylactic Lovenox
--- NOTE | 2024-02-13 15:33 | PC.NURSE ---
patient arrived by stretcher from ed.
[2024-02-13 15:43] LABS: Thyroid Stimulating Hormone 0.04 uIU/mL (0.465-4.68)
[2024-02-13] MEDS: LEVOFLOXACIN/D5W 750 MG/150 ML 750 MG/150 ML PIGGYBACK 100 MG IV (16:49)
[2024-02-13] MEDS: GABAPENTIN 100MG CAPSULE 100 MG PO (20:12)
[2024-02-13] MEDS: CARBIDOPA/LEVODOPA 25/100MG TABLET 2 EACH PO (20:12)
[2024-02-13] MEDS: diazePAM 2MG TABLET 2 MG PO (20:12)
[2024-02-13] MEDS: PANTOPRAZOLE 40MG TABLET 40 MG PO (20:12)
[2024-02-13] MEDS: METOPROLOL TARTRATE 25MG TABLET 25 MG PO (20:19)
[2024-02-14 04:00] VITALS: BP 143/60; PULSE 67; RESP 16; TEMP 36.8; O2SAT 91; BMI 25.7
--- NOTE | 2024-02-14 04:24 | PC.NURSE ---
Addendum entered by Marifer Mack RN 02/14/24 04:29: Patient also has redness/ulceration noted to sacral area. Picture uploaded under nursing wound note. Dressing is currently C/D/I. Original Note: Patient alert and oriented x4 this shift. Tolerating room air well with O2 stats >90%. Patient has used bedside commode with x2 assist and tolerated fairly. Bowel sounds active. Abdomen flat, soft, and tender upon palpation in upper quadrants. Pain treated with Toradol per SEP. No needs or complaints expressed from patient. VSS. Bed alarm on for patient safety. Call light within reach.
[2024-02-14] MEDS: KETOROLAC 30MG/ML VIAL 15 MG IV (05:24)
[2024-02-14 08:00] VITALS: BP 189/79; PULSE 64; RESP 21; TEMP 36.7; O2SAT 96
[2024-02-14 08:19] LABS: Basophils # 0.1 K/mm3 (0-0.2); Basophils % 1.2 % (0.1-2.0); Eosinophils # 0.3 K/mm3 (0.0-0.4); Eosinophils % 6.7 % (0.1-12.0); Hematocrit 38.7 % (37.0-47.0); Lymphocytes # 1.2 K/mm3 (0.7-4.5); Lymphocytes % 29.8 % (10-50); Mean Corpuscular HGB Conc 31.1 g/dL (31.8-35.4); Mean Corpuscular Hemoglobin 31.4 pg (27.0-31.2); Mean Corpuscular Volume 101.1 fl (81-99); Mean Platelet Volume 7.3 fl (7.4-10.4); Monocytes # 0.4 K/mm3 (0.1-1.0); Monocytes % 9.9 % (1.7-9.3); Neutrophils # 2.1 K/mm3 (1.8-7.8); Neutrophils % 52.4 % (37.0-80.0); Platelet Count 359 K/mm3 (142-424); Red Blood Count 3.83 M/mm3 (4.20-5.40); Red Cell Distribution Width 14.5 % (11.5-17.5); White Blood Count 4.1 K/mm3 (4.8-10.8)
[2024-02-14 08:24] LABS: Chloride 99 mmol/L (98-107); Potassium 3.8 mmoL/L (3.5-5.1); Sodium 130 mmol/L (136-145)
[2024-02-14 08:27] LABS: Alanine Aminotransferase 5 U/L (12-78); Albumin Level 3.8 g/dl (3.5-5.0); Albumin/Globulin Ratio 1.2 (1.1-1.8); Alkaline Phosphatase 148 U/L (38-126); Anion Gap 8.8 mEq/L (5-15); Aspartate Amino Transferase 26 U/L (14-36); Bilirubin,Total 0.5 mg/dl (0.2-1.3); Blood Urea Nitrogen 15 mg/dl (7-17); Calcium 9.6 mg/dl (8.4-10.2); Carbon Dioxide 26 mmol/L (22.0-30.0); Creatinine Clearance Estimated 41 mL/min (50-200); Estimated Glomerular Filt Rate 52 ml/min (>60); GFR (African American) 63 ML/MIN (>60); Globulin 3.2 g/dL (1.3-3.2); Glucose 82 mg/dl (74-100); Magnesium 1.6 mg/dl (1.6-2.3)
[2024-02-14] MEDS: CITALOPRAM 40MG TABLET 40 MG PO (09:00)
[2024-02-14] MEDS: IRBESARTAN 150MG TAB 150 MG PO ×2 (09:00→10:09)
[2024-02-14] MEDS: GABAPENTIN 100MG CAPSULE 100 MG PO (09:00)
[2024-02-14] MEDS: LEVOTHYROXINE 137MCG (0.137MG) TAB 137 MCG PO (09:00)
[2024-02-14] MEDS: METOPROLOL TARTRATE 25MG TABLET 25 MG PO (09:00)
[2024-02-14] MEDS: CARBIDOPA/LEVODOPA 25/100MG TABLET 1.5 EACH PO (09:01)
[2024-02-14] MEDS: ENOXAPARIN 40MG/0.4ML SYRINGE 40 MG SQ (09:02)
--- NOTE | 2024-02-14 11:00 | P.DS_ITS ---
General Admission date:: 02/13/24 Discharge date: 02/14/24 HPI HPI HPI: Ms. Marroquin is an 88-year-old female with history of parkinsonism, diverticulosis, who presented to the ER with worsening weakness over the past month. Was admitted 2 months ago for similar condition. On presentation today, she complains of pain in her lower back. It is transferred around her abdomen over the past few days. Denies any fever, nausea, vomiting. Due to weakness and pain, workup initiated in the ER. Found to have cervical fracture. Last fall was the beginning of December. Labs nonactionable. CT of abdomen pelvis with finding of sigmoid diverticulitis. Medicine consulted for admission and further treatment with evaluation for possible placement. On arrival to the floor, patient appears at baseline health. Complaining of abdominal pain. Stable on room air. Responded well to Toradol with improvement in pain. Initiated on Levaquin upon arrival to the floor for sigmoid diverticulitis. Worsening deconditioning. Family having a hard time caring for her at home. Has been seen previously by case management with concern for placement need, ultimately family elected to take her home. Hospital Course Hospital Course Hospital Course: The patient is an 88-year-old female with Parkinson's disease and chronic neuropathy with weakness who is under the care of a local neurologist. Presented with persistent weakness. Having some abdominal pain. CT imaging showing diverticulitis in the sigmoid region. Discussed case with ER physician, request admission for management given weakness and difficulty going home. I agreed to admit for observation. Administered Levaquin. Renally dosing. Will continue at discharge. Discussed placement options and need for rehab. Family wants to trial home health and will continue to pursue rehab on an outpatient setting. Stable to discharge home with family. Problems addressed as follows: Diverticulitis Per my review of CT, has some inflammation and edema around sigmoid colon. Transitioned to liquid diet. Doing well. White cell count remains normal at 4.1 on day of discharge. Abdominal pain improving somewhat. Responding to IV Toradol. Continue Levaquin to complete 5 days of antibiotics. Continue Toradol orally for 4 more days as needed. Having bowel movements. No fever. Stable to discharge medically managed as an outpatient. Follow-up with PCP within the next week for further management General weakness Parkinson's disease Gait abnormality Paresthesia/neuropathy Fracture of sacral ala, nondisplaced -Worsening weakness, progressive over the past 6 to 8 months. Extensive discussion last visit about her condition and need for possible placement. Will pursue home health therapy at this time. Will consider placement as an outpatient if fails home health. Patient's sacral fracture complicates her pain and ambulation. Likely present since the beginning of December. No surgical intervention. Ambulate/weight-bear as tolerated. - Continue carbidopa/levodopa. Continue Valium 2 mg daily as needed for anxiety Continue Lexapro 10 mg daily Continue gabapentin 100 mg 3 times a day Hypertension Will resume home regimen at discharge including losartan 100 mg da damien and metoprolol 25 mg twice daily Hypothyroidism: TSH 0.04. Continue levothyroxine 137 mcg daily. Stable to discharge home. Extensive discussion with patient's son today. Total time spent on discharge 32 minutes in counseling, documentation, chart review, and direct care with patient. Exam Data for Last 24 hours Vital signs and Labs for Last 24 Hours: Temp Pulse Resp BP Pulse Ox O2 Del Method 98.1 F 64 21 189/79 H 96 Room Air 02/14/24 08:00 02/14/24 08:00 02/14/24 08:00 02/14/24 08:00 02/14/24 08:00 02/14/24 10:55 Laboratory Results - last 24 hr 02/13/24 11:30: WBC 5.0, RBC 3.42 L, Hgb 12.1 L, Hct 33.1 L, MCV 97.0, MCH 35.5 H, MCHC 36.6 H, RDW 15.0, Plt Count 411, MPV 7.9, Neut % (Auto) 65.6, Lymph % (Auto) 19.2, [place] % (Auto) 7.6, Eos % (Auto) 6.7, Baso % (Auto) 0.9, Neut # (Auto) 3.3, Lymph # (Auto) 1.0, [place] # (Auto) 0.4, Eos # (Auto) 0.3, Baso # (Auto) 0.0, Sodium 137, Potassium 4.0, Chloride 101, Carbon Dioxide 29, Anion Gap 11.0, BUN 15, Creatinine 0.80, Estimated Creat Clear 41, Estimated GFR 68, Est GFR ( Amer) 82, Glucose 123 H, Calcium 9.8, Total Bilirubin 0.4, AST 25, ALT 14, Alkaline Phosphatase 127 H, Troponin I < 0.01, Total Protein 7.3, Albumin 4.0, Globulin 3.3 H, Albumin/Globulin Ratio 1.2, Lipase 89, TSH 0.04 L 02/13/24 13:10: Urine Color Yellow, Urine Appearance Clear, Urine pH 6.5, Ur Specific [place] 1.010, Urine Protein Negative, Urine Glucose (UA) Negative, Urine Ketones Negative, Urine Blood Negative, Urine Nitrate Negative, Urine Bilirubin Negative, Urine Urobilinogen 0.2, Ur Leukocyte Esterase Negative, Urine WBC Occasional, Urine Bacteria Trace 02/14/24 07:30: WBC 4.1 L, RBC 3.83 L, Hgb 12.0 L, Hct 38.7, MCV 101.1 H, MCH 31.4 H, MCHC 31.1 L, RDW 14.5, Plt Count 359, MPV 7.3 L, Neut % (Auto) 52.4, Lymph % (Auto) 29.8, [place] % (Auto) 9.9 H, Eos % (Auto) 6.7, Baso % (Auto) 1.2, Neut # (Auto) 2.1, Lymph # (Auto) 1.2, [place] # (Auto) 0.4, Eos # (Auto) 0.3, Baso # (Auto) 0.1, Sodium 130 L, Potassium 3.8, Chloride 99, Carbon Dioxide 26, Anion Gap 8.8, BUN 15, Creatinine 1.00 D, Estimated Creat Clear 41, Estimated GFR 52 L, Est GFR ( Amer) 63 D, Glucose 82 D, Calcium 9.6, Magnesium 1.6, Total Bilirubin 0.5, AST 26, ALT 5 L D, Alkaline Phosphatase 148 H, Total Protein 7.0, Albumin 3.8, Globulin 3.2, Albumin/Globulin Ratio 1.2 I & O for Last 24 hours: Intake & Output 02/11/24 02/12/24 02/13/24 02/14/24 23:59 23:59 23:59 23:59 Intake Total 360 / 360 600 / 600 Output Total 0 / 0 0 / 0 Balance 360 / 360 600 / 600 Weight 65.771 kg 65.72 kg Constitutional Constitutional: no acute distress, average body habitus, chronically ill appearing and cooperative *Routine HEENT Exam Head: Present normocephalic Eye: Present EOMI and PERRL ENT: Present mucous membranes moist *Routine Neck Exam Neck: Present supple; Absent lymphadenopathy *Routine Respiratory Exam Respiratory: Present CTA bilaterally; Absent rhonchi, wheezes or crackles *Routine Cardiovascular Exam Cardiovascular: Present RRR *Routine Abdominal Exam Abdominal: Present soft and normoactive bowel sounds; Absent tenderness *Routine Rectal Exam Patient deferred: visual exam *Routine Exam Patient deferred: external exam *Routine Extremities Exam Extremities: Absent cyanosis, clubbing or edema *Routine Skin Exam Skin: Present intact, pallor and warm; Absent rash *Routine Neurological Exam Neurological: Present alert, oriented X3 and moving all extremities; Absent altered mental status Results Data Completed and Pending Labs on day of discharge: Labs from last 24 hours 02/14/24 02/13/24 02/13/24 07:30 13:10 11:30 WBC 4.1 L 5.0 RBC 3.83 L 3.42 L Hgb 12.0 L 12.1 L Hct 38.7 33.1 L MCV 101.1 H 97.0 MCH 31.4 H 35.5 H MCHC 31.1 L 36.6 H RDW 14.5 15.0 Plt Count 359 411 MPV 7.3 L 7.9 Neut % (Auto) 52.4 65.6 Lymph % (Auto) 29.8 19.2 [place] % (Auto) 9.9 H 7.6 Eos % (Auto) 6.7 6.7 Baso % (Auto) 1.2 0.9 Neut # (Auto) 2.1 3.3 Lymph # (Auto) 1.2 1.0 [place] # (Auto) 0.4 0.4 Eos # (Auto) 0.3 0.3 Baso # (Auto) 0.1 0.0 Sodium 130 L 137 Potassium 3.8 4.0 Chloride 99 101 Carbon Dioxide 26 29 Anion Gap 8.8 11.0 BUN 15 15 Creatinine 1.00 D 0.80 Estimated Creat Clear 41 41 Estimated GFR 52 L 68 Est GFR ( Amer) 63 D 82 Glucose 82 D 123 H Calcium 9.6 9.8 Magnesium 1.6 Total Bilirubin 0.5 0.4 AST 26 25 ALT 5 L D 14 Alkaline Phosphatase 148 H 127 H Troponin I < 0.01 Total Protein 7.0 7.3 Albumin 3.8 4.0 Globulin 3.2 3.3 H Albumin/Globulin Ratio 1.2 1.2 Lipase 89 TSH 0.04 L Urine Color Yellow Urine Appearance Clear Urine pH 6.5 Ur Specific [place] 1.010 Urine Protein Negative Urine Glucose (UA) Negative Urine Ketones Negative Urine Blood Negative Urine Nitrate Negative Urine Bilirubin Negative Urine Urobilinogen 0.2 Ur Leukocyte Esterase Negative Urine WBC Occasional Urine Bacteria Trace DS: Diagnosis Discharge Diagnosis (1) Diverticulitis: Status: Acute Code(s): K57.92 - Diverticulitis of intestine, part unspecified, without perforation or abscess without bleeding (2) Closed sacral fracture: Status: Acute Code(s): S32.10XA - Unspecified fracture of sacrum, initial encounter for closed fracture (3) Immobility: Status: Acute Code(s): Z74.09 - Other reduced mobility (4) Sciatica: Status: Acute Code(s): M54.30 - Sciatica, unspecified side (5) General weakness: Status: Acute Code(s): R53.1 - Weakness (6) Parkinsonian syndrome: Status: Chronic Code(s): G20.C - Parkinsonism, unspecified Qualifiers: Parkinsonism type: unspecified Qualified Code(s): G20.C - Parkinsonism, unspecified Problem details: Symptomatic improvement with carbidopa/levodopa (7) Hypothyroidism: Status: Acute Code(s): E03.9 - Hypothyroidism, unspecified Meds Home Medications and Allergies Home Medications Medication Instructions Recorded Confirmed Type metoprolol tartrate 25 mg tablet 25 mg PO BID 01/20/21 02/13/24 History omeprazole 40 mg capsule,delayed 40 mg PO DAILY 01/20/21 02/13/24 History release acetaminophen 500 mg tablet 500 mg PO Q4HP PRN Mild Pain 02/18/21 02/13/24 History (Scale Score 1-4) losartan 100 mg tablet 100 mg PO DAILY 04/08/23 02/13/24 History hydroxyzine pamoate 25 mg capsule 25 mg PO TIDP PRN Anxiety 08/03/23 02/14/24 History carbidopa 25 mg-levodopa 100 mg 1.5 tab PO TID 12/20/23 02/14/24 History tablet meloxicam 7.5 mg tablet 7.5 mg PO BID 12/20/23 02/13/24 History levothyroxine 137 mcg tablet 137 mcg PO DAILYDM 30 days #30 tabs 12/21/23 02/13/24 Rx (Synthroid) diazepam 2 mg tablet 2 mg PO 1400 02/03/24 02/14/24 History gabapentin 100 mg capsule 100 mg PO TID 02/03/24 02/14/24 History dupilumab 300 mg/2 mL subcutaneous 300 mg SQ Q336H excema 02/13/24 02/14/24 History pen injector (Dupixent) escitalopram oxalate 20 mg tablet 20 mg PO DAILY 02/14/24 02/14/24 History ketorolac 10 mg tablet 10 mg PO Q8H PRN pain 4 days #12 02/14/24 Rx tabs levofloxacin 500 mg tablet 500 mg PO DAILY 3 days #3 tabs 02/14/24 Rx New Prescriptions to Start Prescriptions: Matt Jane levofloxacin Matt Barron Allergies Allergy/AdvReac Type Severity Reaction Status Date / Time codeine Allergy Rash Verified 02/03/24 15:49 [From Tylenol-Codeine #3] cyclobenzaprine Allergy Unknown Verified 02/03/24 15:49 allergy reaction etodolac Allergy Unknown Verified 02/03/24 15:49 allergy reaction lisinopril Allergy Rash Verified 02/03/24 15:49 metronidazole Allergy Unknown Verified 02/03/24 15:49 allergy reaction tramadol Allergy Rash Verified 02/03/24 15:49 adhesive tape AdvReac Rash Verified 02/13/24 16:06 niacin AdvReac Unknown Verified 02/03/24 15:49 allergy reaction Discharge Plan Disposition Patient Disposition: Home Health Service Condition: Fair Discharge Order Discharge Orders: Discharge Order (Routine); Ordered 02/14/24 Ordered By: Matt Barron Follow up Plan Follow up with: Himanshu Escobar MD [Primary Care Provider] - Enter time for follow up (please call for follow up appointment. ) Prescriptions/Medication Reconciliation: New ketorolac 10 mg tablet 10 mg PO Q8H PRN (Reason: pain) 4 Days Qty: 12 0RF Rx Instructions: Tolerated IV formulation during admission. levofloxacin 500 mg tablet 500 mg PO DAILY 3 Days Qty: 3 0RF Continued hydroxyzine pamoate 25 mg capsule 25 mg PO TIDP PRN (Reason: Anxiety) losartan 100 mg tablet 100 mg PO DAILY diazepam 2 mg tablet 2 mg PO 1400 Patient Comments: TAKE ONE TABLET BY MOUTH EVERY DAY AT 200pm MAY CAUSE DROWSINESS gabapentin 100 mg capsule 100 mg PO TID Patient Comments: TAKE ONE CAPSULE BY MOUTH THREE TIMES DAILY MAY CAUSE DROWSINESS omeprazole 40 MG capsule,delayed release(DR/EC) 40 mg PO DAILY metoprolol tartrate 25 MG tablet 25 mg PO BID acetaminophen 500 MG tablet 500 mg PO Q4HP PRN (Reason: Mild Pain (Scale Score 1-4)) Dupixent Pen 300 mg/2 mL pen injector 300 mg SQ Q336H Rx Instructions: take every 2 weeks escitalopram oxalate 20 mg tablet 20 mg PO DAILY meloxicam 7.5 mg tablet 7.5 mg PO BID carbidopa-levodopa 25-100 mg tablet 1.5 tab PO TID levothyroxine [Synthroid] 137 mcg Tablet 137 mcg PO DAILYDM 30 Days Qty: 30 0RF Discontinued entacapone 200 mg tablet 200 mg PO TID Problem Reconciliation Problems Reviewed?: Yes Patient Discharge Instructions ACTIVITY: Continue current activity and Ambulate as tolerated DIET: continue same diet and other Additional Instructions: Full liquid diet for the next 3 days, advance to regular diet thereafter Patient Instructions: DI for Diverticulitis, DI for Muscle Weakness Providers Primary Care Provider: Himanshu Escobar Admit Provider: Matt Barron Attending Provider: Matt Barron
--- NOTE | 2024-02-15 11:27 | SW/DCPLANNER ---
Addendum entered by Antonieta Ness 02/15/24 14:55: Per Coretta hodges/ [facility] they can not accept patient due to recently being discharged. I did call and update patient's son (Yoan) and he stated they would like to postpone home health services at this time. Original Note: I received a consult on this patient regarding home health services. I called and spoke w/ patient's son regarding home health. Son is agreeable to home health and stated that patient recently received services from [facility]. Patient/family are agreeable to using [facility] services again. Patient information/order have been faxed to Cassandra hodges/ [facility]. I will follow up once Cassandra reviews. Patient discharged home over the weekend.
== END 2024-02-14 13:05 | disposition home health service (06) ==
LOC: ER 14:12 → 2ND 15:03
PROVIDERS: Admitting Provider Internal Medicine Adolescent Medicine; Emergency Provider Emergency Medicine; PCP Internal Medicine Adolescent Medicine; Visit Provider Internal Medicine Adolescent Medicine
DX: K57.32 Diverticulitis of large intestine without perforation or abscess without bleeding (principal); S32.10XA Unspecified fracture of sacrum, initial encounter for closed fracture; Z74.09 Other reduced mobility; M54.30 Sciatica, unspecified side; E03.9 Hypothyroidism, unspecified; I10 Essential (primary) hypertension; E78.5 Hyperlipidemia, unspecified; G20.A1 Parkinson's disease without dyskinesia, without mention of fluctuations; M81.0 Age-related osteoporosis without current pathological fracture; F32.A Depression, unspecified; G62.9 Polyneuropathy, unspecified
CPT/HCPCS: 36415; 72131; 72192; 73502; 73552; 73562; 74177; 80053; 81001; 83690; 83735; 84443; 84484; 85025; 93005; 99285; G0378; J0131; J1650; J1885; J1956; Q9967